=== PATIENT | male | born 1955 | race Caucasian/White ===

== ENCOUNTER 2016-12-11 09:35 | Inpatient (IN) | payer BC, OTHER ==
[2016-12-11 09:41] VITALS: BMI 16.0
--- NOTE | 2016-12-11 10:06 | PDOC ---
History of Present Illness <Franco Allan - Last Filed: 12/11/16 13:17> <Howard Dooley - Last Filed: 12/11/16 18:12> - General Chief Complaint: Chest Pain Stated Complaint: CHEST DISCOMFORT Time Seen by Provider: 12/11/16 10:04 - History of Present Illness Initial Comments: 12/11/16 13:17 Pt. was last seen by Dr. Jaramillo on October 23 2015. Generator changed in 2013 in the biventricular defibrillator by [employer]. During last visit, pt. was determined to have complete AV block, AFIB, orthostatic hypotension, but stopped following up. (Franco Allan) 12/11/16 10:41 The patient is a 61 year old male with a significant past medical history of myotonic dystrophy, atrial flutter s/p pacemaker, who was brought to the ER by his step-daughter since he claimed that he was having a heart attack when he woke this morning. He states that he had a now-resolved left-sided chest pain. His main complains at this point are constipation (last bm 4 days ago) and LLQ pain. Patient is minimally ambulatory at baseline at home using a cane but lives in a 2-story walk-up and avoids leaving his house due to his chronic illness. 12/11/16 12:49 (Howard Dooley) Past History <Franco Allan - Last Filed: 12/11/16 13:17> - Past Medical History Cardiac Disorders: Yes Other medical history: MILD TONIC DYSTROPHY - Surgical History Cardiac Surgery: Yes (PACEMAKER/DEFIB) - Immunization History Immunization Up to Date: Yes - Suicide/Smoking/Psychosocial Hx Smoking History: Never smoked Have you smoked in the past 12 months: No Hx Alcohol Use: No Drug/Substance Use Hx: No Substance Use Type: None Hx Substance Use Treatment: No <Howard Dooley - Last Filed: 12/11/16 18:12> - Past Medical History Allergies/Adverse Reactions: Allergies Allergy/AdvReac Type Severity Reaction Status Date / Time No Known Allergies Allergy Verified 12/11/16 09:41 Home Medications: Ambulatory Orders Unobtainable [Unobtainable] 12/11/16 Cardiac Specific PMH - Complaint Specific PMHX Pacemaker: Yes <Howard Dooley - Last Filed: 12/11/16 18:12> Review of Systems - Review of Systems Constitutional: Yes: Weakness HEENTM: No: Symptoms Reported Respiratory: No: Symptoms reported, Shortness of Breath, SOB with Exertion Cardiac (ROS): Yes: Chest Pain (resolved). No: Symptoms Reported ABD/GI: Yes: Constipated : No: Symptoms Reported Musculoskeletal: Yes: Muscle Weakness <Howard Dooley - Last Filed: 12/11/16 18:12> *Physical Exam - Physical Exam General Appearance: Yes: Cachetic. No: Apparent Distress HEENT: positive: EOMI, ROBERTA, Normal ENT Inspection Neck: positive: Supple. negative: Tender Respiratory/Chest: positive: Lungs Clear, Normal Breath Sounds. negative: Chest Tender, Respiratory Distress Cardiovascular: positive: Regular Rhythm, Regular Rate, S1, S2 Vascular Pulses: Dorsalis-Pedis (R): 2+, Doralis-Pedis (L): 2+ Gastrointestinal/Abdominal: positive: Decreased BS Integumentary: positive: Warm, Pale. negative: Bruising Neurologic: negative: Sensory Deficit <Howard Dooley - Last Filed: 12/11/16 18:12> - Vital Signs Last Vital Signs Temp Pulse Resp BP Pulse Ox 97.8 F 100 H 20 149/69 98 12/11/16 14:00 12/11/16 14:00 12/11/16 14:00 12/11/16 14:00 12/11/16 14:00 Heart Score/ECG Review <Franco Allan - Last Filed: 12/11/16 13:17> <Howard Dooley - Last Filed: 12/11/16 18:12> #1 12/11/16 11:19 Vent rate 96 bpm Atrial-sense ventricular-paced rhythm with occasional premature ventricular complexes Biventricular pacemaker detected Abnormal ECG (Franco Allan) ED Treatment Course - LABORATORY CBC & Chemistry Diagram: 12/11/16 10:30 12/11/16 10:30 <Franco Allan - Last Filed: 12/11/16 13:17> - LABORATORY CBC & Chemistry Diagram: 12/11/16 10:30 12/11/16 10:30 <Howard Dooley - Last Filed: 12/11/16 18:12> - ADDITIONAL ORDERS Additional order review: Laboratory Results 12/11/16 12/11/16 12/11/16 10:30 10:30 10:30 Sodium 143 Potassium 4.7 Chloride 108 H Carbon Dioxide 29 Anion Gap 6 L BUN 14 D Creatinine 0.6 L Creat Clearance w eGFR > 60 Random Glucose 91 Lactic Acid 1.8 Calcium 9.4 Total Bilirubin 0.5 AST 28 D ALT 20 D Alkaline Phosphatase 145 H Creatine Kinase 151 Creatine Kinase Index 1.3 CK-MB (CK-2) 2.106 Troponin I < 0.02 Total Protein 6.5 Albumin 3.7 TSH Y Free T4 Y Urine Color Yellow Urine Appearance Slcloudy Urine pH 5.0 D Urine Protein Negative Urine Glucose (UA) Negative Urine Ketones Trace H Urine Blood Negative Urine Nitrite Negative Urine Bilirubin Negative Urine Urobilinogen Negative 12/11/16 10:30 RBC 5.20 MCV 90.8 MCHC 32.8 RDW 13.9 MPV 9.4 Neutrophils % 77.5 Lymphocytes % 13.4 Monocytes % 8.1 Eosinophils % 0.3 D Basophils % 0.7 - RADIOLOGY Radiology Studies Ordered: Category Date Time Status ABDOMEN & PELVIS CT WITH CONTR [CT] Stat CT Scan 12/11/16 11:49 Completed CHEST - PA [RAD] Stat Radiology 12/11/16 10:08 Completed - Medications Given in the ED: ED Medications Discontinued Medications Generic Name Dose Route Start Last Admin Trade Name Freq PRN Reason Stop Dose Admin Aspirin 162 mg 12/11/16 13:44 12/11/16 14:50 Asa - PO 12/11/16 13:45 162 mg ONCE ONE Administration Aspirin 162 mg 12/11/16 16:36 12/11/16 17:39 Asa - PO 12/11/16 16:37 162 mg ONCE ONE Administration Polyethylene Glycol 17 gm 12/11/16 17:42 12/11/16 17:48 Miralax (For Daily Use) - PO 12/11/16 17:43 17 gm ONCE ONE Administration Sodium Chloride 1,000 ml 12/11/16 11:49 12/11/16 13:06 Normal Saline - IV 12/11/16 11:50 1,000 ml ONCE ONE Administration Medical Decision Making <Franco Allan - Last Filed: 12/11/16 13:17> <Howard Dooley - Last Filed: 12/11/16 18:12> - Medical Decision Making 12/11/16 12:49 The patient is a 61 year old male with a significant past medical history of myotonic dystrophy, atrial flutter s/p pacemaker, who was brought to the ER by his step-daughter since he claimed that he was having a heart attack when he woke this morning. Evaluation of low grade fever. Labs and lytes negative, UA negative 12/11/16 18:11 Admitted to [facility] for atypical chest painin the context of his muscular dystrophy. Needs physical therapy and placement in nursing care. (Howard Dooley) *DC/Admit/Observation/Transfer <Franco Allan - Last Filed: 12/11/16 13:17> - Discharge Dispostion Admit: Yes <Howard Dooley - Last Filed: 12/11/16 18:12> Diagnosis at time of Disposition: Atypical chest pain
[2016-12-11 10:55] LABS: URINE APPEARANCE SLCLOUDY; URINE BILIRUBIN NEGATIVE (NEGATIVE); URINE BLOOD NEGATIVE (NEGATIVE); URINE COLOR YELLOW; URINE GLUCOSE (UA) NEGATIVE (NEGATIVE); URINE KETONE TRACE (NEGATIVE); URINE NITRITE NEGATIVE (NEGATIVE); URINE PROTEIN NEGATIVE (NEGATIVE); URINE UROBILINOGEN NEGATIVE mg/dL (0.2-1.0)
[2016-12-11 11:07] LABS: BASOPHIL 0.7 % (0-2.0); EOSINOPHIL 0.3 % (0-4.5); MCH 29.8 pg (25.7-33.7); MCHC 32.8 g/dl (32.0-35.9); MEAN CELL VOLUME 90.8 fl (80-96); MEAN PLT VOLUME 9.4 fl (7.5-11.1); NEUTROPHILS 77.5 % (42.8-82.8); PLATELET COUNT 161 K/MM3 (134-434); RDW 13.9 % (11.9-15.9); WHITE BLOOD COUNT 7.9 K/mm3 (4.0-10.0)
[2016-12-11 11:21] LABS: ALBUMIN 3.7 g/dl (3.4-5.0); ANION GAP 6 (8-16); BILIRUBIN,TOTAL 0.5 mg/dL (0.2-1.0); CALCIUM 9.4 mg/dL (8.5-10.1); CO2 29 mmol/L (21-32); CREATININE 0.6 mg/dL (0.7-1.3); GLUCOSE,RANDOM 91 mg/dL (74-106); SGPT/ALT 20 U/L (12-78); TOT PROT 6.5 g/dl (6.4-8.2)
--- NOTE | 2016-12-11 11:22 | PDOC ---
Attending Attestation - Resident Resident Name: Howard Dooley - ED Attending Attestation I have performed the following: I have examined & evaluated the patient, The case was reviewed & discussed with the resident, I agree w/resident's findings & plan, Exceptions are as noted - HPI HPI: 12/11/16 11:21 . - Physicial Exam PE: 12/11/16 11:21 . <Alethea Alcala - Last Filed: 12/11/16 11:21> - HPI HPI: 12/11/16 11:41 The patient is a 61 year old male with a significant PMH of muscular dystrophy diagnosed 2 years ago who ? chest pain, constipation, and progressive weakness beginning approximately this morning. The patient lives at home with his step daughter and and reports walking to the bathroom and experiencing severe substernal chest pain. He reports feeling progressively weaker and being unable to reach the bathroom. Upon arrival, his chest pain has resolved but ? of worsening weakness. The patient states he has not eaten much over the past few days and lost a significant amount of weight. He also endorses mild lower abdominal pain and has not has a BM in 4 days. The patient denies SOB, cough, diaphoresis, or urinary complaints. Denies Hx of similar symptoms. Body Team Member: Dr. Harry Jaramillo - Physicial Exam PE: 12/11/16 11:42 GENERAL: Awake, alert, and fully oriented, in no acute distress HEAD: No signs of trauma EYES: PERRLA, EOMI, sclera anicteric, conjunctiva clear ENT: (+) Dry mucosa. Auricles normal inspection, hearing grossly normal, nares patent, oropharynx clear without exudates. NECK: Normal ROM, supple, no lymphadenopathy, JVD, or masses LUNGS: Breath sounds equal, clear to auscultation bilaterally. No wheezes, and no crackles HEART: Regular rate and rhythm, normal S1 and S2, no murmurs, rubs or gallops ABDOMEN: (+) Mild suprapubic LLQ tenderness. Soft, normoactive bowel sounds. No guarding, no rebound. No masses EXTREMITIES: Normal range of motion, no edema. No clubbing or cyanosis. No cords, erythema, or tenderness. DP/PT pulses 2+ and symmetric. NEUROLOGICAL: Cranial nerves II through XII grossly intact. Normal speech. SKIN: Warm, Dry, normal turgor, no rashes or lesions noted. - Medical Decision Making 12/11/16 11:42 Pt. is a 61 year old male with hx of muscular dystrophy c/o chest pain, progressive weakness, now with fevers and abdominal pain. Differential is UTI, pyelonephritis, diverticulitis, ACS, pneumonia. Pt. appears to have progressive wasting and weakness due to dystrophy. Will likely require admission for any underlying infection. May require physical therapy. <Franco Allan - Last Filed: 12/11/16 11:58>
[2016-12-11 11:23] LABS: ALK PHOS 145 U/L (45-117); TROPONIN I < 0.02 ng/ml (0.00-0.05)
[2016-12-11 11:30] LABS: CPK 151 IU/L (39-308); SGOT/AST 28 U/L (15-37)
[2016-12-11] MEDS ORDERED: SODIUM CHLORIDE 0.9% 1000 ML INFUS.BAG IV ONE (11:49)
--- NOTE | 2016-12-11 12:57 | EKG ---
Test Reason : Blood Pressure : / mmHG Vent. Rate : 096 BPM Atrial Rate : 096 BPM P-R Int : 108 ms QRS Dur : 148 ms QT Int : 398 ms P-R-T Axes : 091 -74 092 degrees QTc Int : 502 ms Atrial-sensed ventricular-paced rhythm WITH OCCASIONAL PREMATURE VENTRICULAR COMPLEXES FUSION BEATS Biventricular pacemaker detected ABNORMAL ECG WHEN COMPARED WITH ECG OF 22-AUG-2015 10:49, PREMATURE VENTRICULAR COMPLEXES ARE NOW PRESENT VENT. RATE HAS INCREASED BY 25 BPM BASELINE ARTIFACT Confirmed by NASREEN MARTINEZ MD ([id number]) on 12/11/2016 12:56:56 PM Referred By: Confirmed By:NASREEN MARTINEZ MD
[2016-12-11] MEDS ORDERED: ASPIRIN 81 MG CHEWABLE TABLETS PO ONE ×2 (13:44→16:36)
[2016-12-11] MEDS ORDERED: ASPIRIN 81 MG CHEWABLE TABLETS ONE ×2 (14:45→17:39)
--- NOTE | 2016-12-11 16:25 | HP ---
CHIEF COMPLAINT: chest pain, constipation, and progressive weakness, multiple falls at home PCP: Loan Clerk: Dr. Harry Jaramillo HISTORY OF PRESENT ILLNESS: Patient is a 61 year old male with a significant past medical history of myotonic dystrophy, atrial flutter s/p pacemaker. He is being monitored under observation today for chest pain, constipation and progressive weakness with multiple falls at home. Patient states that this morning he experienced severe 10/10 substernal chest pain accompanied by weakness when attempting to ambulate to the bathroom. Patient states his chest pain has since resolved. He further states that he notices that his lower extremities weakness has progressed in the last year and states he lost approximately 25 lbs in the past two months. He endorses mild LUQ abdominal pain and has not had a bowel movement for 4 days. He denies any shortness of breath, coughing, diaphoresis, urinary frequency, nausea or vomiting. He further states that he is on no medications presently and only takes Asprin 325mg daily and on no cardiac medications. This needs to be confirmed with his spanish linguist. Call placed with patients's home listed pharmacy: [facility] . Only filled prescriptions were back in August of this year and were: Z pack, Miralax, Tessalon pearls. ER course was notable for: (1) 100.F, negative chest xray, pulse 100, WBC 7.9, lactic acid 1.8 (2) Trop. 0.02 x 1 (3) Abd ct/pelvis: enlarged prostate, no evidence of acute diverticulitis (4) EKG 12/11/2016: atrial sensed ventricular paced rhythm with occasional premature ventral complex fusion beats. When compared with ECG of 08/22/2015 PVCs complexes are now present. Vent rate increased by 25bpm Recent Travel: none PAST MEDICAL HISTORY: myotonic dystrophy, atrial flutter s/p pacemaker PAST SURGICAL HISTORY: Social History: Smoking: denies Alcohol:denies Drugs: denies Family History: Allergies No Known Allergies Allergy (Verified 12/11/16 09:41) HOME MEDICATIONS: Home Medications Medication Instructions Recorded Aspirin [ASA -] 325 mg PO DAILY 08/22/15 Levofloxacin [Levaquin -] 500 mg PO DAILY #5 tablet 08/24/15 Metronidazole [Flagyl -] 500 mg PO Q8H #12 tablet 08/24/15 REVIEW OF SYSTEMS CONSTITUTIONAL: Absent: rhinorrhea, nasal congestion, throat pain, throat swelling, mouth swelling, ear pain, eye pain, visual changes CARDIOVASCULAR: Absent: syncope, palpitations, lightheadedness, peripheral edema RESPIRATORY: Absent: cough, shortness of breath, dyspnea with exertion, orthopnea, wheezing, stridor, hemoptysis GASTROINTESTINAL: Absent: abdominal pain, abdominal distension, melena, hematochezia GENITOURINARY: Absent: dysuria, frequency, urgency, hesitancy, hematuria, flank pain, genital pain MUSCULOSKELETAL: Absent: myalgia, arthralgia, joint swelling, back pain, neck pain SKIN: Absent: rash, itching, pallor HEMATOLOGIC/IMMUNOLOGIC: Absent: easy bleeding, easy bruising, lymphadenopathy, frequent infections ENDOCRINE: Absent: unexplained weight gain, heat intolerance, cold intolerance NEUROLOGIC: Absent: headache, focal weakness or paresthesias, dizziness, seizure, mental status changes, bladder or bowel incontinence PSYCHIATRIC: Absent: anxiety, suicidal or homicidal ideation, hallucinations. PHYSICAL EXAMINATION Vital Signs - 24 hr 12/11/16 12/11/16 12/11/16 09:36 10:30 14:00 Temperature 100.2 F H 97.8 F Pulse Rate 125 H Pulse Rate [ 100 H Right] Respiratory 20 20 Rate Blood Pressure 115/63 Blood Pressure 149/69 [Right Arm] O2 Sat by Pulse 100 98 Oximetry (%) GENERAL: Awake, alert, and fully oriented, in no acute distress, speech is garbled HEAD: Normal with no signs of trauma. +temporal wasting EYES: Pupils equal, round and reactive to light, extraocular movements intact, sclera anicteric, conjunctiva clear. No lid lag. EARS, NOSE, THROAT: Ears normal, nares patent, oropharynx clear without exudates. Moist mucous membranes. NECK: Normal range of motion, supple without lymphadenopathy, JVD, or masses. LUNGS: Breath sounds equal, clear to auscultation bilaterally. No wheezes HEART: Regular rate and rhythm ABDOMEN: Non distended, hard mass felt on LUQ, + bowel sounds, no tenderness on exam MUSCULOSKELETAL: Normal range of motion at all joints. No bony deformities or tenderness. No CVA tenderness. UPPER EXTREMITIES: No clubbing. No peripheral edema. LOWER EXTREMITIES: No calf tenderness. No peripheral edema, very thin lower extremities NEUROLOGICAL: Normal speech PSYCHIATRIC: Cooperative. Good eye contact. Appropriate mood and affect. SKIN: dry skin, poor skin turgor Laboratory Results - last 24 hr 12/11/16 12/11/16 12/11/16 10:30 10:30 10:30 WBC 7.9 RBC 5.20 Hgb 15.5 D Hct 47.2 MCV 90.8 MCH 29.8 MCHC 32.8 RDW 13.9 Plt Count 161 D MPV 9.4 Neutrophils % 77.5 Lymphocytes % 13.4 Monocytes % 8.1 Eosinophils % 0.3 D Basophils % 0.7 Sodium 143 Potassium 4.7 Chloride 108 H Carbon Dioxide 29 Anion Gap 6 L BUN 14 D Creatinine 0.6 L Creat Clearance w eGFR > 60 Random Glucose 91 Lactic Acid Calcium 9.4 Total Bilirubin 0.5 AST 28 D ALT 20 D Alkaline Phosphatase 145 H Creatine Kinase 151 Creatine Kinase Index 1.3 CK-MB (CK-2) 2.106 Troponin I < 0.02 Total Protein 6.5 Albumin 3.7 TSH Y Free T4 Y Urine Color Yellow Urine Appearance Slcloudy Urine pH 5.0 D Urine Protein Negative Urine Glucose (UA) Negative Urine Ketones Trace H Urine Blood Negative Urine Nitrite Negative Urine Bilirubin Negative Urine Urobilinogen Negative 12/11/16 10:30 WBC RBC Hgb Hct MCV MCH MCHC RDW Plt Count MPV Neutrophils % Lymphocytes % Monocytes % Eosinophils % Basophils % Sodium Potassium Chloride Carbon Dioxide Anion Gap BUN Creatinine Creat Clearance w eGFR Random Glucose Lactic Acid 1.8 Calcium Total Bilirubin AST ALT Alkaline Phosphatase Creatine Kinase Creatine Kinase Index CK-MB (CK-2) Troponin I Total Protein Albumin TSH Free T4 Urine Color Urine Appearance Urine pH Urine Protein Urine Glucose (UA) Urine Ketones Urine Blood Urine Nitrite Urine Bilirubin Urine Urobilinogen ASSESSMENT/PLAN: Patient is a 61 year old male with a significant past medical history of myotonic dystrophy, atrial flutter s/p pacemaker. He is being monitored under observation today for chest pain, constipation and progressive weakness with multiple falls at home. Patient states that this morning he experienced severe 10/10 substernal chest pain accompanied by weakness when attempting to ambulate to the bathroom. Patient states his chest pain has since resolved. He further states that he notices that his lower extremities weakness has progressed in the last year and states he lost approximately 25 lbs in the past two months and is often not hungry. He reports trouble with swallowing and coughs after meals and feels like food gets stuck. He endorses mild LUQ abdominal pain and has not had a bowel movement for 4 days. He denies any shortness of breath, coughing, diaphoresis, urinary frequency, nausea or vomiting. He further states that he is on no medications presently and only takes Asprin 325mg daily and on no cardiac medications. This needs to be confirmed with his spanish linguist. Call placed with patients's home listed pharmacy: [facility], [address] [place] [address] . Only filled prescriptions were back in August of this year and were: Z pack, Miralax, Tessalon pearls. Imaging: Chest Xray 12/11/2016: No acute pathology, clear lungs CT abd/pelvis 12/11/2016: enlarged prostated, multiple kidney stones, enlarged irregular prostate, no diverticulitis Cardiology: Chest Pain, acute Rule out ACS Trend troponins Monitor on telemonitoring Verify cardiac medications, has history of aflutter Will defer to cardiology for anticoaguation Patient reports 10 falls this year at home secondary to weakness and low blood pressure Monitor orthostatics q8 Continue ASA 324mg As per ED note patient last saw his spanish linguist on October 2015 and has not seen him since His generator changed in 2013 in the biventricular def. by [employer] TSH pending Cardiology consulted Muscular/Skeletal: Myotonic Dystrophy, chronic Will need physical therapy, reports multiple falls at home Fall risk precautions Progressive weight loss On admission of 08/2015, pt weight 60kg, now 49kg Will add megace, RD consult May need swallow eval, will order same Low Grade Fever, unknown origin In the ED he had a fever of 100.2, WBC stable, vitals stable Non toxic appearing Lactic acid within normal limits Blood cultures/urine cultures sent F.E.N. Fluids: IVF 50cc/hr Electrolytes: within normal limits, CMP in a.m. Nutrition: low sodium diet Prophylaxis: DVT: Heparin SC GI: Protonix Prophylaxis: Observation. full code. Visit type - Emergency Visit Emergency Visit: Yes ED Registration Date: 12/11/16 Care time: The patient presented to the Emergency Department on the above date and was hospitalized for further evaluation of their emergent condition. - New Patient This patient is new to me today: Yes Date on this admission: 12/11/16 - Critical Care Critical Care patient: No
[2016-12-11] MEDS ORDERED: POLYETHYLENE GLYCOL 3350 119 GM BTL PO ONE ×2 (17:42→18:02)
[2016-12-11] MEDS ORDERED: ACETAMINOPHEN 325 MG TABLET (FP) PO ONE (18:09)
[2016-12-11 18:12] LABS: URINE LEUK ESTERASE Negative (NEGATIVE)
[2016-12-11] MEDS ORDERED: SODIUM CHLORIDE 1,000 ML IV SCH (18:15)
[2016-12-11 19:03] LABS: INR 1.12 (0.82-1.09); PROTHROMBIN TIME (PATIENT) 12.6 SEC (9.98-11.88)
[2016-12-11 19:12] LABS: ALBUMIN 3.5 g/dl (3.4-5.0); ANION GAP 5 (8-16); BILIRUBIN,TOTAL 0.5 mg/dL (0.2-1.0); CALCIUM 8.8 mg/dL (8.5-10.1); CO2 31 mmol/L (21-32); CREATININE 0.8 mg/dL (0.7-1.3); GLUCOSE,RANDOM 92 mg/dL (74-106); MAGNESIUM 2.2 mg/dL (1.8-2.4); SGOT/AST 18 U/L (15-37); SGPT/ALT 17 U/L (12-78); TOT PROT 5.7 g/dl (6.4-8.2)
[2016-12-11] MEDS ORDERED: ACETAMINOPHEN 325 MG TABLET (FP) ONE (19:12)
[2016-12-11 19:15] LABS: ALK PHOS 128 U/L (45-117); TROPONIN I 0.03 ng/ml (0.00-0.05)
[2016-12-12 01:27] LABS: BASOPHIL 0.6 % (0-2.0); EOSINOPHIL 1.6 % (0-4.5); MCH 30.5 pg (25.7-33.7); MCHC 33.6 g/dl (32.0-35.9); MEAN CELL VOLUME 90.7 fl (80-96); MEAN PLT VOLUME 9.6 fl (7.5-11.1); NEUTROPHILS 54.4 % (42.8-82.8); PLATELET COUNT 146 K/MM3 (134-434); RDW 13.8 % (11.9-15.9); WHITE BLOOD COUNT 5.8 K/mm3 (4.0-10.0)
[2016-12-12] MEDS: DOCUSATE SODIUM 100 MG CAPSULE (FP) PO SCH ×4 (02:10→21:55)
[2016-12-12] MEDS: HEPARIN NA (PORCINE) 5,000 UNITS/ML 1ML VIAL SQ SCH ×3 (02:39→21:55)
[2016-12-12 08:40] LABS: BASOPHIL 0.5 % (0-2.0); EOSINOPHIL 1.1 % (0-4.5); MCH 30.2 pg (25.7-33.7); MCHC 33.3 g/dl (32.0-35.9); MEAN CELL VOLUME 90.7 fl (80-96); MEAN PLT VOLUME 9.9 fl (7.5-11.1); NEUTROPHILS 67.6 % (42.8-82.8); PLATELET COUNT 172 K/MM3 (134-434); RDW 14.1 % (11.9-15.9); WHITE BLOOD COUNT 6.8 K/mm3 (4.0-10.0)
[2016-12-12 09:00] LABS: ALBUMIN 3.2 g/dl (3.4-5.0); ANION GAP 8 (8-16); CALCIUM 8.7 mg/dL (8.5-10.1); CO2 26 mmol/L (21-32); CREATININE 0.4 mg/dL (0.7-1.3); GLUCOSE,RANDOM 133 mg/dL (74-106); SGOT/AST 22 U/L (15-37); SGPT/ALT 19 U/L (12-78); TOT PROT 5.3 g/dl (6.4-8.2)
[2016-12-12 09:03] LABS: ALK PHOS 116 U/L (45-117); BILIRUBIN,TOTAL 0.5 mg/dL (0.2-1.0); CHOLESTEROL 173 mg/dL (50-200)
[2016-12-12] MEDS ORDERED: ASPIRIN 325 MG TABLET PO SCH (10:00)
[2016-12-12] MEDS ORDERED: FLU VACCINE QUAD 60 MCG/0.5 ML (MDV 17-18) IM ONE (10:00)
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
[2016-12-12] MEDS: PANTOPRAZOLE 40 MG TABLET (FP) PO SCH (10:28)
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
--- NOTE | 2016-12-12 10:32 | CON.CARD ---
Consult Consult Specialty:: cardiology Reason for Consultation:: chest pain; hx BiV ICD - History of Present Illness Chief Complaint: Pt sitting up in chair; anxious; c/o treatment by family as main reason for his health problems. History of Present Illness: Pt. was last seen by Dr. Jaramillo (explosive ordnance specialist) on October 23 2015. Generator changed in 2013 in the biventricular defibrillator by [employer]. During last visit, pt. was determined to have complete AV block, AFIB, orthostatic hypotension, but stopped following up. 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 He states that he had a now-resolved left-sided chest pain. His main complains at this point are constipation (last bm 4 days ago) and LLQ pain. Patient is ambulatory at baseline at home using a cane (altered gait), but lives in a 2-story walk-up and avoids leaving his house due to his chronic illness. Pt says emotional issues at home have affected his physical health adversely. 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 Cardio/Vascular: Yes: CHF Psych: Yes: Anxiety Musculoskeletal: Yes: Other (myotoic dystrophy) - Past Surgical History Past Surgical History: Yes: None - Alcohol/Substance Use Hx Alcohol Use: No - Smoking History Smoking history: Never smoked Have you smoked in the past 12 months: No - Social History Usual Living Arrangement: With Spouse Home Medications - Allergies Allergies/Adverse Reactions: Allergies Allergy/AdvReac Type Severity Reaction Status Date / Time No Known Allergies Allergy Verified 12/11/16 09:41 - Home Medications Home Medications: Ambulatory Orders Unobtainable [Unobtainable] 12/11/16 Family Disease History - Family Disease History Family History: Denies Review of Systems - Review of Systems Constitutional: reports: Loss of Appetite, Unintentional Wgt. Loss, Weakness Eyes: reports: No Symptoms HENT: reports: No Symptoms Neck: reports: No Symptoms Cardiovascular: reports: Chest Pain Respiratory: reports: No Symptoms Gastrointestinal: reports: No Symptoms Genitourinary: reports: No Symptoms Musculoskeletal: reports: Decreased ROM, Muscle Weakness, Other Integumentary: reports: No Symptoms Neurological: reports: Unsteady Gait Psychiatric: reports: Anxiety, Paranoia - Risk Factors Known Risk Factors: Yes: Age, Physical Inactivity Vital Signs: Vital Signs Temperature 98.2 F 12/12/16 09:00 Pulse Rate 72 12/12/16 09:00 Respiratory Rate 18 12/12/16 09:00 Blood Pressure 126/69 12/12/16 09:00 O2 Sat by Pulse Oximetry (%) 97 12/12/16 02:12 Constitutional: Yes: Anxious, Thin Eyes: Yes: WNL HENT: Yes: WNL Neck: Yes: WNL Respiratory: Yes: WNL Gastrointestinal: Yes: WNL Renal/: No: Anuria Cardiovascular: Yes: Regular Rate and Rhythm JVD: No Carotid Bruit: No PMI: Non-Displaced Heart Sounds: Yes: S1, S2 Musculoskeletal: Yes: Muscle Weakness, Other (extremely thin; general atrophic musculature) Extremities: Yes: Cool Edema: No Peripheral Pulses WNL: Yes Integumentary: Yes: WNL Neurological: Yes: Unsteady Gait, Weakness Psychiatric: Yes: Agitated, Other - Other Data Labs, Other Data: CBC, BMP 12/12/16 08:10 12/12/16 08:10 INR, PTT INR 1.12 (0.82-1.09) 12/11/16 18:40 Troponin, BNP 12/11/16 12/11/16 12/12/16 18:40 18:40 01:18 Troponin I 0.03 D 0.03 0.03 Troponin, BNP 12/11/16 12/11/16 12/12/16 18:40 18:40 01:18 Troponin I 0.03 D 0.03 0.03 Imaging - Results EKG: Image Reviewed (atrial sensed, BiV paced) Problem List - Problems (1) Marital or partner relational problem Assessment/Plan: psychiatric consult noted. Code(s): Z63.0 - PROBLEMS IN RELATIONSHIP WITH SPOUSE OR PARTNER (3) Atypical chest pain Assessment/Plan: TNI 0.02-->0.03-->0.02 EKG: Atrial sensed, V paced rhythm Telemetry: no arrhythmias F/u ECHO for LVEF, wall motion, valve status. Pt gives hx of two stress MIBIs, the last ? 5 yrs ago; was told of "clean arteries". F/u cardiac [facility] from [facility] (Dr. Jaramillo). lipids; TSH. Coronary artery evaluation if not done recently. Code(s): R07.89 - OTHER CHEST PAIN
--- NOTE | 2016-12-12 10:55 | EKG ---
Test Reason : Blood Pressure : / mmHG Vent. Rate : 096 BPM Atrial Rate : 081 BPM P-R Int : 000 ms QRS Dur : 156 ms QT Int : 448 ms P-R-T Axes : 086 -71 091 degrees QTc Int : 565 ms SINUS RHYTHM WITH INTERMITENT ELECTRONIC ATRIAL PACEMAKER Ventricular-paced rhythm WITH OCCASIONAL PREMATURE VENTRICULAR COMPLEXES Biventricular pacemaker detected ABNORMAL ECG WHEN COMPARED WITH ECG OF 11-DEC-2016 09:53, RHYTHM ABOVE CLINICAL CORRELATION IS RECOMMENDED Confirmed by JUAN CAMILO, NASREEN ([id number]) on 12/12/2016 10:55:28 AM Referred By: Confirmed By:NASREEN MARTINEZ MD
[2016-12-12] MEDS: MEGESTROL ACETATE 400 MG/10 ML UNIT DOSE CUP PO SCH (12:44)
[2016-12-12] MEDS ORDERED: ACETAMINOPHEN 325 MG TABLET (FP) PO PRN (15:17)
[2016-12-12] MEDS: DEXTROSE 5%-0.45% SALINE 1,000 ML IV SCH (16:00)
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
[2016-12-12] MEDS: MIRTAZAPINE 15 MG TABLET (FP) PO SCH (21:55)
[2016-12-13] MEDS: DOCUSATE SODIUM 100 MG CAPSULE (FP) PO SCH ×3 (05:59→22:22)
[2016-12-13 06:58] LABS: BASOPHIL 0.6 % (0-2.0); EOSINOPHIL 1.7 % (0-4.5); MCH 30.2 pg (25.7-33.7); MEAN CELL VOLUME 88.9 fl (80-96); MEAN PLT VOLUME 9.4 fl (7.5-11.1); NEUTROPHILS 67.5 % (42.8-82.8); PLATELET COUNT 144 K/MM3 (134-434); RDW 14.2 % (11.9-15.9); WHITE BLOOD COUNT 6.4 K/mm3 (4.0-10.0)
[2016-12-13 07:23] LABS: ALBUMIN 3.1 g/dl (3.4-5.0); ALK PHOS 134 U/L (45-117); ANION GAP 10 (8-16); BILIRUBIN,TOTAL 0.5 mg/dL (0.2-1.0); CALCIUM 8.4 mg/dL (8.5-10.1); CO2 27 mmol/L (21-32); CREATININE 0.4 mg/dL (0.7-1.3); GLUCOSE,RANDOM 85 mg/dL (74-106); MAGNESIUM 2.3 mg/dL (1.8-2.4); PHOSPHOROUS 2.6 mg/dL (2.5-4.9); SGOT/AST 41 U/L (15-37); SGPT/ALT 38 U/L (12-78); TOT PROT 5.3 g/dl (6.4-8.2)
[2016-12-13] MEDS: PANTOPRAZOLE 40 MG TABLET (FP) PO SCH (09:33)
[2016-12-13] MEDS: ASPIRIN 81 MG CHEWABLE TABLETS PO SCH (09:34)
[2016-12-13] MEDS: MEGESTROL ACETATE 400 MG/10 ML UNIT DOSE CUP PO SCH (09:38)
[2016-12-13] MEDS: HEPARIN NA (PORCINE) 5,000 UNITS/ML 1ML VIAL SQ SCH ×2 (09:38→22:22)
--- NOTE | 2016-12-13 10:15 | EKG ---
Test Reason : Blood Pressure : / mmHG Vent. Rate : 073 BPM Atrial Rate : 073 BPM P-R Int : 126 ms QRS Dur : 152 ms QT Int : 456 ms P-R-T Axes : 092 -55 089 degrees QTc Int : 502 ms Atrial-sensed ventricular-paced rhythm Biventricular pacemaker detected ABNORMAL ECG WHEN COMPARED WITH ECG OF 11-DEC-2016 18:51, VENT. RATE HAS DECREASED BY 23 BPM Confirmed by MARIA ESTHER CAMILO, NBA ([id number]) on 12/13/2016 10:15:33 AM Referred By: Orlando CHOPRA Confirmed By:NBA MAYO MD
--- NOTE | 2016-12-13 10:17 | CON.GI ---
Consult Consult Specialty:: GI Referred by:: service Reason for Consultation:: dysphagia, wt loss - History of Present Illness History of Present Illness: Chart reviewed. ED, H&P, Cardiology, and psychiatry consults noted. Intermittent dysphagia to solids, progressive over the last few months. No history of food impaction, odynophagia, dyspepepsia, or GERD-like symptoms. Never had EGD. 25 lb unintentional weight loss over the last 5 months. Reports fair appetite. Deneis melena, hematochezia, hematemesis, changes in stool caliper. Reports constipation with 1 bm every 4 days. Deneis fever, chills, nausea, or vomiting. 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 Cardio/Vascular: Yes: CHF Gastrointestinal: No: Diverticulosis, GERD, GI Bleed Psych: Yes: Anxiety Musculoskeletal: Yes: Other (myotoic dystrophy) - Past Surgical History Past Surgical History: Yes: None Additional Surgical History: PPM - Alcohol/Substance Use Hx Alcohol Use: No - Smoking History Smoking history: Never smoked Have you smoked in the past 12 months: No - Social History Usual Living Arrangement: With Spouse Home Medications - Allergies Allergies/Adverse Reactions: Allergies Allergy/AdvReac Type Severity Reaction Status Date / Time No Known Allergies Allergy Verified 12/11/16 09:41 - Home Medications Home Medications: Ambulatory Orders Unobtainable [Unobtainable] 12/11/16 Family Disease History - Family Disease History Family History: Unremarkable Review of Systems - Review of Systems Constitutional: reports: Unintentional Wgt. Loss, Weakness. denies: Chills, Fever, Loss of Appetite, Night Sweats HENT: reports: Difficult Swallowing Neck: reports: No Symptoms Cardiovascular: reports: Chest Pain (atypica, per cardiology) Respiratory: reports: No Symptoms Gastrointestinal: reports: Constipation, Dysphagia. denies: Abdominal Pain, Bloating, Diarrhea, Indigestion, Melena, Nausea, Rectal Bleeding, Vomiting Musculoskeletal: reports: Muscle Weakness Psychiatric: reports: Anxiety Physical Exam-GI Vital Signs: Vital Signs Temperature 98.0 F 12/13/16 06:00 Pulse Rate 70 12/13/16 06:00 Respiratory Rate 20 12/13/16 06:00 Blood Pressure 100/63 12/13/16 06:00 O2 Sat by Pulse Oximetry (%) 99 12/12/16 20:39 Constitutional: Yes: Anxious, Cachectic Eyes: No: Conjunctiva Clear HENT: Yes: Other (temporal wasting). No: Atraumatic Neck: Yes: Supple, Trachea Midline. No: Lymphadenopathy Cardiovascular: Yes: Regular Rate and Rhythm Respiratory: Yes: Regular Gastrointestinal Inspection: No: Ascites, Distention ...Auscultate: Yes: Normoactive Bowel Sounds ...Palpate: Yes: Soft. No: Guarding, Mass, Pulsatile Mass, Tenderness Neurological: Yes: Alert, Oriented Labs: INR, PTT INR 1.12 (0.82-1.09) 12/11/16 18:40 CBCD WBC 6.4 K/mm3 (4.0-10.0) 12/13/16 06:25 RBC 4.24 M/mm3 (4.00-5.60) 12/13/16 06:25 Hgb 12.8 GM/dL (11.7-16.9) D 12/13/16 06:25 Hct 37.7 % (35.4-49) 12/13/16 06:25 MCV 88.9 fl (80-96) 12/13/16 06:25 MCHC 34.0 g/dl (32.0-35.9) 12/13/16 06:25 RDW 14.2 % (11.9-15.9) 12/13/16 06:25 Plt Count 144 K/MM3 (134-434) 12/13/16 06:25 MPV 9.4 fl (7.5-11.1) 12/13/16 06:25 CMP Sodium 145 mmol/L (136-145) 12/13/16 06:25 Potassium 4.3 mmol/L (3.5-5.1) 12/13/16 06:25 Chloride 108 mmol/L (98-107) H 12/13/16 06:25 Carbon Dioxide 27 mmol/L (21-32) 12/13/16 06:25 Anion Gap 10 (8-16) 12/13/16 06:25 BUN 13 mg/dL (7-18) D 12/13/16 06:25 Creatinine 0.4 mg/dL (0.7-1.3) L 12/13/16 06:25 Creat Clearance w eGFR > 60 (>60) 10/23/17 06:25 Calcium 8.4 mg/dL (8.5-10.1) L 12/13/16 06:25 Total Bilirubin 0.5 mg/dL (0.2-1.0) 12/13/16 06:25 AST 41 U/L (15-37) H D 12/13/16 06:25 ALT 38 U/L (12-78) D 12/13/16 06:25 Alkaline Phosphatase 134 U/L (45-117) H 12/13/16 06:25 Total Protein 5.3 g/dl (6.4-8.2) L 12/13/16 06:25 Albumin 3.1 g/dl (3.4-5.0) L 12/13/16 06:25 Imaging - Results Cat Scan: Pending, Other (per records, 2016 CT showed dilated esophagus, no follow up.) Problem List - Problems (1) Weight loss, abnormal Code(s): R63.4 - ABNORMAL WEIGHT LOSS (2) Dysphagia Code(s): R13.10 - DYSPHAGIA, UNSPECIFIED Assessment/Plan Agree with contrast CT chest Plan EGD and colonoscopy Soft diet Miralax PRN, or dilcolax qhs Discussed with the patient
--- NOTE | 2016-12-13 10:51 | CONSULT ---
Admitting History and Physical - Primary Care Physician PCP: Nguyen De Guzman - Admission History of Present Illness: Per EMR: HISTORY OF PRESENT ILLNESS: Patient is a 61 year old male with a significant past medical history of myotonic dystrophy, atrial flutter s/p pacemaker. He is being monitored under observation today for chest pain, constipation and progressive weakness with multiple falls at home. Patient states that this morning he experienced severe 10/10 substernal chest pain accompanied by weakness when attempting to ambulate to the bathroom. Patient states his chest pain has since resolved. He further states that he notices that his lower extremities weakness has progressed in the last year and states he lost approximately 25 lbs in the past two months. He endorses mild LUQ abdominal pain and has not had a bowel movement for 4 days. He denies any shortness of breath, coughing, diaphoresis, urinary frequency, nausea or vomiting. Thyroid nodules --previous admission August 2015, imaging showed: --08/22/15 CT chest: 1.9cm left thyroid lesion --08/24/15 US thyroid: left lower lobe 2.7 solid nodule; left upper lobe 1.2cm and 0.8cm solid nodules; 1cm nodule right upper lobe --patient was discharged on 08/24/15, advised needed outpatient biopsy, patient did not follow up --request for IR biopsy --TSH wnl; free T3, free T4 pending Esophageal dilitation --08/22/15 CT chest: moderate dilitation of esophagus, achelasia v. distal stricture; patient did not follow up with GI --difficulty swallowing, coughing with eating, food gets stuck CT chest 12/12/16 Moderate dilatation of cervical esophagus. No mass. r/o stricture EGD recommended/Complex left lobe thyroid mass. U/S rec GI evaluation appreciated- Plan: EGD/Colonoscopy. Soft diet rec. Pt only accepting ensure, refusing food, IV fluids, some medication. Pt with bilateral ptosis. 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 Cardiovascular: Yes: CHF Gastrointestinal: No: Diverticulosis, GERD, GI Bleed Psych: Yes: Anxiety Musculoskeletal: Yes: Other (myotoic dystrophy) - Past Surgical History Past Surgical History: Yes: None - Smoking History Smoking history: Never smoked Have you smoked in the past 12 months: No - Alcohol/Substance Use Hx Alcohol Use: No History - Admission Reason For Visit: MUSCULAR DYSTROPHY , ATYPICAL CHEST PAIN - Diagnostics X-ray: Report Reviewed CT Scan: Report Reviewed - General Mental Status: Alert and Oriented, Awake and Alert, Able to Follow Commands Attention: Intact Ability to Follow Directions: Good - Hearing Hearing: Normal Hearing Aide: No With Patient: No Speech Evaluation - Communication Primary Language: ALB[place] Oral Expression Ability: Yes: Mild Impairment, Moderate Impairment - Speech Production Able to Make Needs Known: Yes: Mildly Impaired, Moderately Impaired Intelligibility: Yes: Mildly Impaired, Moderately Impaired - Speech Characteristics Voice Loudness: Mildly Soft/Quiet Voice Pitch: Yes: Normal Voice Phonatory-based Quality: Yes: Normal Speech Pattern: Impaired Speech Clarity: < 75% Nasal Resonance: Normal Articulation: Yes: Imprecise Rate of Speech: Too Fast - Language/Auditory Comprehension Follows: Yes: 1 Stage Simple Commands - Swallow Evaluation/Bedside Assessment Current Nutritional Intake: Soft, Thin Liquids Oral Secretions: Yes: WFL Dentition: Yes: Adequate Facial Symmetry at Rest: Symmetrical Facial Symmetry on Retraction: Symmetrical Pucker Lips: Normal Smile: Normal Lingual Movement: Symmetric Lingual Speed of Movement: Normal Lingual Movement Strgth Against Opposition: Reduced Lingual Movement Characteristics: Normal Laryngeal Movement: Able to Palpate Timing of Swallow: WFL Coughing/Throat Clear: No Recommendations - Speech Evaluation, Impression/Plan Impression: Pt with bilateral ptosis. Very fast, imprecise speech, possibly baseline. Insight? CT chest 12/12/16 Moderate dilatation of cervical esophagus. No mass. r/o stricture EGD recommended/Complex left lobe thyroid mass. U/S rec. Refused PO trials for me except for water. Pt reports stasis of solids in right side of throat, which may be deferred symptoms from esophageal stasis with suspected stricture. He says he clears his throat and coughs to bring it back out. However, he denies dysphagia,food sticking in chest or vomiting. Pt insists on continuing "regular food". Suspect esophageal , and possibly pharyngeal dysphagia. - Dysphagia Impressions/Plan Swallowing Skills: Impaired *Silent aspiration: cannot be R/O at bedside Dysphagia Treatment Plan: Safe Rate, 1/2 tsp. at a time, OOB for meals, OOB for 1 h. after meals, Other (Alternate solids with liquids. Complete meal with liquids.) Recommendations: MBS w Esophagus (Pt is refusing. "maybe tomorrow") - Recommendations Diet Consistency: Mechanical Soft, Other Liquids: Thin Liquids Supplement: Ensure (encourage)
--- NOTE | 2016-12-13 13:03 | PN ---
Progress Note, Physician History of Present Illness: Pt. was last seen by Dr. Jaramillo (detective and intelligence analyst) on October 23 2015. Generator changed in 2013 in the biventricular defibrillator by [employer]. During last visit, pt. was determined to have complete AV block, AFIB, orthostatic hypotension, but stopped following up. 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 He states that he had a now-resolved left-sided chest pain. His main complains at this point are constipation (last bm 4 days ago) and LLQ pain. Patient is ambulatory at baseline at home using a cane (altered gait), but lives in a 2-story walk-up and avoids leaving his house due to his chronic illness. Pt says emotional issues at home have affected his physical health adversely. - Current Medication List Current Medications: Active Medications Acetaminophen (Tylenol -) 650 mg PO Q6H PRN PRN Reason: FEVER OR PAIN Aspirin (Asa -) 81 mg PO DAILY [facility] Last Admin: 12/13/16 09:34 Dose: 81 mg Docusate Sodium (Colace -) 100 mg PO TID [facility] Last Admin: 12/13/16 05:59 Dose: Not Given Heparin Sodium (Porcine) (Heparin -) 5,000 unit SQ BID [facility] Last Admin: 12/13/16 09:38 Dose: Not Given Dextrose/Sodium Chloride (D5-1/2ns -) 1,000 mls @ 75 mls/hr IV ASDIR [facility] Last Admin: 12/12/16 16:00 Dose: Not Given Megestrol Acetate (Megace Oral Suspension -) 400 mg PO DAILY [facility] Last Admin: 12/13/16 09:38 Dose: Not Given Mirtazapine (Remeron -) 15 mg PO HS [facility] Last Admin: 12/12/16 21:55 Dose: 15 mg Pantoprazole Sodium (Protonix -) 40 mg PO DAILY [facility] Last Admin: 12/13/16 09:33 Dose: 40 mg - Objective Vital Signs: Vital Signs Temperature 97.7 F 12/13/16 10:00 Pulse Rate 73 12/13/16 10:00 Respiratory Rate 18 12/13/16 10:00 Blood Pressure 104/62 12/13/16 10:00 O2 Sat by Pulse Oximetry (%) 100 12/13/16 11:17 Eyes: Yes: WNL, Conjunctiva Clear, EOM Intact HENT: Yes: WNL, Atraumatic, Normocephalic Neck: Yes: WNL, Supple, Trachea Midline Cardiovascular: Yes: WNL, Regular Rate and Rhythm Respiratory: Yes: WNL, Regular, CTA Bilaterally Gastrointestinal: Yes: WNL, Normal Bowel Sounds Genitourinary: Yes: WNL Musculoskeletal: Yes: WNL Extremities: Yes: WNL Edema: No Integumentary: Yes: WNL Neurological: Yes: WNL, Alert, Oriented ...Motor Strength: WNL Psychiatric: Yes: WNL Labs: INR, PTT INR 1.12 (0.82-1.09) 12/11/16 18:40 Problem List - Problems (1) Atypical chest pain Code(s): R07.89 - OTHER CHEST PAIN (2) Dysphagia Code(s): R13.10 - DYSPHAGIA, UNSPECIFIED (3) Marital or partner relational problem Code(s): Z63.0 - PROBLEMS IN RELATIONSHIP WITH SPOUSE OR PARTNER (5) Weight loss, abnormal Code(s): R63.4 - ABNORMAL WEIGHT LOSS (6) Bronchitis Code(s): J40 - BRONCHITIS, NOT SPECIFIED ACUTE OR CHRONIC (7) Hypoxia Code(s): R09.02 - HYPOXEMIA Assessment/Plan - Problems (1) Marital or partner relational problem Assessment/Plan: psychiatric consult noted. Code(s): Z63.0 - PROBLEMS IN RELATIONSHIP WITH SPOUSE OR PARTNER (3) Atypical chest pain Assessment/Plan: TNI 0.02-->0.03-->0.02 EKG: Atrial sensed, V paced rhythm Telemetry: no arrhythmias F/u ECHO for LVEF, wall motion, valve status. Pt gives hx of two stress MIBIs, the last ? 5 yrs ago; was told of "clean arteries". F/u cardiac records from [place] [facility] (Dr. Jaramillo). lipids; TSH. Coronary artery evaluation if not done recently. Code(s): R07.89 - OTHER CHEST PAIN
--- NOTE | 2016-12-13 13:13 | PN ---
Teaching Attending Note Name of Resident: Aakash Boles ATTENDING PHYSICIAN STATEMENT I saw and evaluated the patient. I reviewed the resident's note and discussed the case with the resident. I agree with the resident's findings and plan as documented. SUBJECTIVE:states that he feels less weak today. says he is "happy" about eating and weight gain over the past few days. denies dysphgia, food sticking, N /V/C/D, anorexia. states he lost 30 lbs this past year but can not contribute it to a certain reason OBJECTIVE: Last Vital Signs Temp Pulse Resp BP Pulse Ox 97.7 F 73 18 104/62 100 12/13/16 10:00 12/13/16 10:00 12/13/16 10:00 12/13/16 10:12/13/16 11:17 General NAD, cachectic (temporal wasting, loss of cheek fullnes, pronounced collar bones) HEENT +enlarged thyroid with mutliple nodules. moves with deglutition CV S1 s2 RRR no murmur/rub/gallop Lungs cTA B/L no wheezing/rales/rhonchi Abdomen soft NT/N, scaffoid abdomen Extremites no pedal edema, no rashes ASSESSMENT AND PLAN: 61yo M with PMH myotonic dystrophy and a flutter s/p PPM presented with CP, weakness and constipation 1. CP- no events on cardiac monitoring. cardiac enzymes neg x3. no repeated episodes of CP. echo pending. PPM interrogation today. will need ischemic eval as outpatinet 2. Severe protein deficiency malnutriton- evident by body habitus and weight loss. evaluated by swallow eval for soft diet. ensures. encourage po intake 3. Dysphgia- now reports no dysphagia but mentioned on previous notes. CT scan last year showed esophageal dilation with distal narrowing. repeat CT with contrast shows the same. no signs of mass, possible stricture. may be related to weight loss. will consult GI for further evaluation. would likely benefit from EGD 4. Thyroid nodules- seen on CT scan and in the past. was recommended to go for bx which pt did not. IR consulted her for Bx but indicated this outpatient workup 5. Constipation- add miralax. monitor for bm 6. myotonic dystrophy 7. DVT ppx- hep sq 8. PT assessment. pt is agreeable to YENI. will need to attempt to call PMD for collateral hx
[2016-12-13] MEDS: DEXTROSE 5%-0.45% SALINE 1,000 ML IV SCH (15:47)
[2016-12-13] MEDS: POLYETHYLENE GLYCOL 3350 119 GM BTL PO SCH (15:47)
--- NOTE | 2016-12-13 16:23 | PN ---
Progress Note, Physician Chief Complaint: Difficulty swallowing History of Present Illness: Patient seen and examined at bedside. Patient states that he doesn't feel food sticking in his throat when he swallows, but he occasionally has difficulty swallowing. He also reports a 30 pound weight loss over 2-3 months. Denies chest pain, SOB, n/v, abdominal pain, diarrhea. Had one bowel movement since yesterday. - Current Medication List Current Medications: Active Medications Acetaminophen (Tylenol -) 650 mg PO Q6H PRN PRN Reason: FEVER OR PAIN Aspirin (Asa -) 81 mg PO DAILY [facility] Last Admin: 12/13/16 09:34 Dose: 81 mg Docusate Sodium (Colace -) 100 mg PO TID [facility] Last Admin: 12/13/16 14:34 Dose: 100 mg Heparin Sodium (Porcine) (Heparin -) 5,000 unit SQ BID [facility] Last Admin: 12/13/16 09:38 Dose: Not Given Dextrose/Sodium Chloride (D5-1/2ns -) 1,000 mls @ 75 mls/hr IV ASDIR [facility] Last Admin: 12/13/16 15:47 Dose: Not Given Megestrol Acetate (Megace Oral Suspension -) 400 mg PO DAILY [facility] Last Admin: 12/13/16 09:38 Dose: Not Given Mirtazapine (Remeron -) 15 mg PO HS [facility] Last Admin: 12/12/16 21:55 Dose: 15 mg Pantoprazole Sodium (Protonix -) 40 mg PO DAILY [facility] Last Admin: 12/13/16 09:33 Dose: 40 mg Polyethylene Glycol (Miralax (For Daily Use) -) 17 gm PO DAILY [facility] Last Admin: 12/13/16 15:47 Dose: Not Given - Objective Vital Signs: Vital Signs Temperature 97.8 F 12/13/16 14:00 Pulse Rate 92 H 12/13/16 14:00 Respiratory Rate 20 12/13/16 14:00 Blood Pressure 115/74 12/13/16 14:00 O2 Sat by Pulse Oximetry (%) 100 12/13/16 11:17 Constitutional: Yes: No Distress, Calm, Cachectic Eyes: Yes: Conjunctiva Clear, EOM Intact HENT: Yes: Atraumatic, Normocephalic, Pharyngeal Erythema Neck: Yes: Supple, Trachea Midline Cardiovascular: Yes: Regular Rate and Rhythm Respiratory: Yes: Regular, CTA Bilaterally Gastrointestinal: Yes: Normal Bowel Sounds, Soft Edema: No Peripheral Pulses WNL: Yes Integumentary: Yes: WNL Neurological: Yes: Alert, Oriented ...Motor Strength: WNL Psychiatric: Yes: Alert, Oriented Labs: INR, PTT INR 1.12 (0.82-1.09) 12/11/16 18:40 - ....Imaging Cat Scan: Report Reviewed Problem List - Problems (1) Atypical chest pain Code(s): R07.89 - OTHER CHEST PAIN (2) Dysphagia Code(s): R13.10 - DYSPHAGIA, UNSPECIFIED (4) Weight loss, abnormal Code(s): R63.4 - ABNORMAL WEIGHT LOSS Impression/Plan Impression/Plan: Assessment/Plan: 61 year old male with a h myotonic dystrophy, 3rd degree heart block s/p biventricular pacemaker presented to the hospital for chest pain, weight loss, constipation, difficulty swallowing, and weakness. 1. Chest pain - clinically improved, patient is no longer having chest pains -echocardiogram today revealed no significant abnormalities, LV function normal -no acute cardiac events today -continue to monitor on telemetry -continue ASA 81mg 2. Severe Protein Deficiency -continue Ensure Enlive 3x day as per dietary -speech/swallow consult suggests esophageal and possibly pharyngeal dysphagia -diet should consist of mechanically soft, foods, thin liquids with ensure supplements 3. Dysphagia -although patient denies current dysphagia symptoms, speech/ swallow consult suggests there is a component of dysphagia. -CT done on previous admission showed esophageal dilatation and a repeat CT chest similarly shows the same dilatation -Dr. Rodriguez from GI evaluated the patient -scheduled EGD/colonoscopy 8:30am -weight loss/calorie malnutrition could be due to or exacerbated by his dysphagia -cont. megestrol 4. Thyroid nodules - were previously described on CT, but patient elected not to have biopsy done. -further workup should be outpatient 5. Constipation - patient had 1 bowel movement yesterday -start patient on miralax -cont docusate 6. Myotonic Dystrophy - -no acute intervention 7. Depression -continue mirtazepine 7. FEN -cont D5 - /2 NS -electrolytes are stable -nutrition as per dietary and speech/swallow: mechanically soft, foods, thin liquids with ensure supplements 8. Prophylaxis -heparin 5000 subQ -cont. pantoprazole 40mg 9. Dyspo: Visit type - Emergency Visit Emergency Visit: No - New Patient This patient is new to me today: Yes Date on this admission: 12/13/16 - Critical Care Critical Care patient: No
[2016-12-13] MEDS: MIRTAZAPINE 15 MG TABLET (FP) PO SCH (22:19)
[2016-12-14] MEDS: DOCUSATE SODIUM 100 MG CAPSULE (FP) PO SCH ×3 (05:58→21:59)
--- NOTE | 2016-12-14 06:33 | PN ---
Physical Exam: SUBJECTIVE: Patient seen and examined at bedside. Patient denies chest pain, SOB , n/v/d, abdominal pain. Patient refused his overnight medications, but agreed to heparin when he was taught why it was important. OBJECTIVE: Vital Signs Period Temp Pulse Resp BP Sys/Celestin Pulse Ox Last 24 Hr 97.7 F-98.1 F 70-92 18-20 90-115/55-74 100-100 Constitutional: Yes: No Distress, Calm, Cachectic Eyes: Yes: Conjunctiva Clear, EOM Intact HENT: Yes: Atraumatic, Normocephalic, Pharyngeal Erythema Neck: Yes: Supple, Trachea Midline Cardiovascular: Yes: Regular Rate and Rhythm Respiratory: Yes: Regular, CTA Bilaterally Gastrointestinal: Yes: Normal Bowel Sounds, Soft Edema: No Peripheral Pulses WNL: Yes Integumentary: Yes: WNL Neurological: Yes: Alert, Oriented ...Motor Strength: WNL Psychiatric: Yes: Alert, Oriented Labs: CBC, BMP 12/14/16 05:35 12/14/16 05:35 Active Medications Generic Name Dose Route Start Last Admin Trade Name Freq PRN Reason Stop Dose Admin Acetaminophen 650 mg 12/12/16 15:17 Tylenol - PO Q6H PRN FEVER OR PAIN Aspirin 81 mg 12/13/16 10:00 12/13/16 09:34 Asa - PO 81 mg DAILY [facility]LE[facility]DR[facility] Administration Docusate Sodium 100 mg 12/11/16 22:00 12/14/16 05:58 Colace - PO Not Given TID ALEJANDRINA Heparin Sodium (Porcine) 5,000 unit 12/11/16 22:00 12/13/16 22:22 Heparin - SQ Not Given BID [facility]LEJANDRINA Dextrose/Sodium Chloride 1,000 mls @ 75 mls/hr 12/12/16 15:30 12/13/16 15:47 D5-1/2ns - IV Not Given ASDIR ALEJANDRINA Megestrol Acetate 400 mg 12/12/16 10:00 12/13/16 09:38 Megace Oral Suspension - PO Not Given DAILY [facility]LE[facility] Mirtazapine 15 mg 12/12/16 22:00 12/13/16 22:19 Remeron - PO Not Given HS ALEJANDRINA Pantoprazole Sodium 40 mg 12/12/16 10:00 12/13/16 09:33 Protonix - PO 40 mg DAILY [facility]LE[facility]ANDR[facility] Administration Polyethylene Glycol 17 gm 12/13/16 13:15 10/23/17 15:47 Miralax (For Daily Use) - PO Not Given DAILY [facility]LE[facility]ANDR[facility] ASSESSMENT/PLAN: 61 year old male with a pmh myotonic dystrophy, 3rd degree heart block s/p biventricular pacemaker presented to the hospital for chest pain, weight loss, constipation, difficulty swallowing, and weakness. 1. Chest pain - clinically improved, patient is no longer having chest pains -trops 3x negative -echo revealed no significant abnormalities, LV function normal, mild MN -no acute cardiac events today -d/c telemetry -continue ASA 81mg 2. Severe Protein Deficiency -continue Ensure Enlive 3x day as per dietary -speech/swallow consult suggests esophageal and possibly pharyngeal dysphagia -diet should consist of mechanically soft, foods, thin liquids with ensure supplements 3. Dysphagia -although patient denies current dysphagia symptoms, speech/ swallow consult suggests there is a component of dysphagia. -CT done on previous admission showed esophageal dilatation and a repeat CT chest similarly shows the same dilatation -Dr. Rodriguez from GI evaluated the patient -scheduled EGD/colonoscopy 8:30am -prep for endoscopy tomorrow -weight loss/calorie malnutrition could be due to or exacerbated by his dysphagia -cont. megestrol 4. Thyroid nodules - were previously described on CT, but patient elected not to have biopsy done. -further workup should be outpatient 5. Constipation - patient had 1 bowel movement today -continue miralax -cont docusate 6. Myotonic Dystrophy - -no acute intervention 7. Depression -continue mirtazepine 7. FEN -cont D5 - 1/2 NS -electrolytes are stable -nutrition as per dietary and speech/swallow: mechanically soft, foods, thin liquids with ensure supplements 8. Prophylaxis -heparin 5000 subQ -cont. pantoprazole 40mg 9. Dispo: -can D/C telemetry -prep for EGD/colonoscopy tomorrow Problem List - Problems (1) Atypical chest pain Code(s): R07.89 - OTHER CHEST PAIN (2) Dysphagia Code(s): R13.10 - DYSPHAGIA, UNSPECIFIED (4) Weight loss, abnormal Code(s): R63.4 - ABNORMAL WEIGHT LOSS Visit type - Emergency Visit Emergency Visit: No - New Patient This patient is new to me today: No - Critical Care Critical Care patient: No
[2016-12-14 07:23] LABS: BASOPHIL 1.5 % (0-2.0); MCH 30.2 pg (25.7-33.7); MCHC 33.1 g/dl (32.0-35.9); MEAN CELL VOLUME 91.2 fl (80-96); MEAN PLT VOLUME 9.9 fl (7.5-11.1); NEUTROPHILS 62.5 % (42.8-82.8); PLATELET COUNT 148 K/MM3 (134-434); RDW 14.4 % (11.9-15.9); WHITE BLOOD COUNT 6.7 K/mm3 (4.0-10.0)
[2016-12-14 08:59] LABS: ANION GAP 7 (8-16); CALCIUM 8.8 mg/dL (8.5-10.1); CO2 31 mmol/L (21-32); CREATININE 0.5 mg/dL (0.7-1.3); GLUCOSE,RANDOM 82 mg/dL (74-106); SGOT/AST 63 U/L (15-37); SGPT/ALT 63 U/L (12-78)
[2016-12-14 09:01] LABS: ALK PHOS 158 U/L (45-117); BILIRUBIN,TOTAL 0.3 mg/dL (0.2-1.0); TOT PROT 5.3 g/dl (6.4-8.2)
--- NOTE | 2016-12-14 09:07 | PN ---
Progress Note, Physician History of Present Illness: No events. Comfortable. Wants regular diet and ECG leads off - Current Medication List Current Medications: Active Medications Acetaminophen (Tylenol -) 650 mg PO Q6H PRN PRN Reason: FEVER OR PAIN Aspirin (Asa -) 81 mg PO DAILY [facility] Last Admin: 12/13/16 09:34 Dose: 81 mg Docusate Sodium (Colace -) 100 mg PO TID [facility] Last Admin: 12/14/16 05:58 Dose: Not Given Heparin Sodium (Porcine) (Heparin -) 5,000 unit SQ BID [facility] Last Admin: 12/13/16 22:22 Dose: Not Given Dextrose/Sodium Chloride (D5-1/2ns -) 1,000 mls @ 75 mls/hr IV ASDIR [facility] Last Admin: 12/13/16 15:47 Dose: Not Given Megestrol Acetate (Megace Oral Suspension -) 400 mg PO DAILY [facility] Last Admin: 12/13/16 09:38 Dose: Not Given Mirtazapine (Remeron -) 15 mg PO HS [facility] Last Admin: 12/13/16 22:19 Dose: Not Given Pantoprazole Sodium (Protonix -) 40 mg PO DAILY [facility] Last Admin: 12/13/16 09:33 Dose: 40 mg Polyethylene Glycol (Miralax (For Daily Use) -) 17 gm PO DAILY [facility] Last Admin: 12/13/16 15:47 Dose: Not Given - Objective Vital Signs: Vital Signs Temperature 98 F 12/14/16 05:51 Pulse Rate 70 12/14/16 05:51 Respiratory Rate 20 12/14/16 05:51 Blood Pressure 90/55 12/14/16 05:51 O2 Sat by Pulse Oximetry (%) 100 12/13/16 22:00 Constitutional: Yes: No Distress, Calm Eyes: Yes: Conjunctiva Clear HENT: Yes: Atraumatic Neck: Yes: Supple Cardiovascular: Yes: Regular Rate and Rhythm Respiratory: Yes: Regular Gastrointestinal: Yes: Normal Bowel Sounds, Soft Neurological: Yes: Alert, Oriented Labs: CBC, BMP 12/14/16 05:35 INR, PTT INR 1.12 (0.82-1.09) 12/11/16 18:40 Problem List - Problems (1) Weight loss, abnormal Code(s): R63.4 - ABNORMAL WEIGHT LOSS (2) Dysphagia Code(s): R13.10 - DYSPHAGIA, UNSPECIFIED Assessment/Plan Agree with contrast CT chest Plan EGD and colonoscopy on Soft diet Miralax PRN, or dilcolax qhs Discussed with the patient
[2016-12-14] MEDS ORDERED: PT OWN MED DRAWER 7, Y5N ONE (09:13)
[2016-12-14] MEDS: MEGESTROL ACETATE 400 MG/10 ML UNIT DOSE CUP PO SCH (09:39)
[2016-12-14] MEDS: PANTOPRAZOLE 40 MG TABLET (FP) PO SCH (09:40)
[2016-12-14] MEDS: ASPIRIN 81 MG CHEWABLE TABLETS PO SCH (09:40)
[2016-12-14] MEDS: HEPARIN NA (PORCINE) 5,000 UNITS/ML 1ML VIAL SQ SCH ×2 (09:40→21:59)
[2016-12-14] MEDS: POLYETHYLENE GLYCOL 3350 119 GM BTL PO SCH (09:41)
--- NOTE | 2016-12-14 10:37 | PN ---
Progress Note, FIRST RESPONDER - Note Progress Note: Selected Entries 12/12/16 12/13/16 12/13/16 18:00 06:00 10:00 Supper 50% Temperature 98.0 F 97.7 F 12/13/16 12/13/16 12/13/16 14:00 18:00 20:05 Supper 50% Temperature 97.8 F 98.1 F 12/13/16 12/14/16 12/14/16 22:00 05:51 10:00 Supper Temperature 98 F 98 F 98.0 F Laboratory Tests 12/13/16 12/14/16 06:25 05:35 WBC 6.4 6.7 Pt on soft diet. No overt difficulty reported per staff. Pending contrast CT chest, EGD and colonoscopy on Alternate solids with liquids and complete meal with liquids. OOB for all meals , as tolerated.
--- NOTE | 2016-12-14 13:03 | PN ---
Teaching Attending Note Name of Resident: Aakash Boles ATTENDING PHYSICIAN STATEMENT I saw and evaluated the patient. I reviewed the resident's note and discussed the case with the resident. I agree with the resident's findings and plan as documented. SUBJECTIVE:asymptomatic. states appetite improved. denies CP, SOB, fever, chills , dysphagia or odynophagia. OBJECTIVE: Last Vital Signs Temp Pulse Resp BP Pulse Ox 98.0 F 82 20 99/44 111 H 12/14/16 10:00 12/14/16 10:12/14/16 10:00 12/14/16 10:12/14/16 10:00 General NAD, cachectic (temporal wasting, loss of cheek fullnes, pronounced collar bones) ASSESSMENT AND PLAN: 61yo M with PMH myotonic dystrophy and a flutter s/p PPM presented with CP, weakness and constipation 1. CP- no events on cardiac monitoring. cardiac enzymes neg x3. no repeated episodes of CP. echo WNL. will need ischemic eval as outpatient 2. Severe protein deficiency malnutrition- evident by body habitus and weight loss. evaluated by swallow eval for soft diet. ensures. encourage po intake 3. Dysphgia- now reports no dysphagia but mentioned on previous notes. CT scan last year showed esophageal dilation with distal narrowing. repeat CT with contrast shows the same. no signs of mass, possible stricture. may be related to weight loss. Plan for EGD/colonoscopy on to further evaluate. 4. Thyroid nodules- seen on CT scan and in the past. will need outpatinet follow up. 5. Constipation- multiple BM yesterday. monitor for daily BM 6. myotonic dystrophy 7. DVT ppx- hep sq 8. would benefit from Y[facility]I placement. will inform CM to initiate process at this time 9. d/c tele monitoring
--- NOTE | 2016-12-14 14:44 | PN ---
Progress Note, Physician Chief Complaint: Pt A&Ox3; anxious; no chest pain or dyspnea.Wants to walk, but says he falls sometimes; "I just get up and keep walking". History of Present Illness: Pt. was last seen by Dr. Jaramillo (automotive sales associate) on October 23 2015. Generator changed in 2013 in the biventricular defibrillator by [employer]. During last visit, pt. was determined to have complete AV block, AFIB, orthostatic hypotension, but stopped following up. 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 He states that he had a now-resolved left-sided chest pain. His main complains at this point are constipation (last bm 4 days ago) and LLQ pain. Patient is ambulatory at baseline at home using a cane (altered gait), but lives in a 2-story walk-up and avoids leaving his house due to his chronic illness. Pt says emotional issues at home have affected his physical health adversely. - Current Medication List Current Medications: Active Medications Acetaminophen (Tylenol -) 650 mg PO Q6H PRN PRN Reason: FEVER OR PAIN Aspirin (Asa -) 81 mg PO DAILY [facility] Last Admin: 12/14/16 09:40 Dose: 81 mg Docusate Sodium (Colace -) 100 mg PO TID [facility] Last Admin: 12/14/16 13:35 Dose: Not Given Heparin Sodium (Porcine) (Heparin -) 5,000 unit SQ BID [facility] Last Admin: 12/14/16 09:40 Dose: 5,000 unit Dextrose/Sodium Chloride (D5-1/2ns -) 1,000 mls @ 75 mls/hr IV ASDIR [facility] Last Admin: 12/13/16 15:47 Dose: Not Given Megestrol Acetate (Megace Oral Suspension -) 400 mg PO DAILY [facility] Last Admin: 12/14/16 09:39 Dose: 400 mg Mirtazapine (Remeron -) 15 mg PO HS [facility] Last Admin: 12/13/16 22:19 Dose: Not Given Pantoprazole Sodium (Protonix -) 40 mg PO DAILY [facility] Last Admin: 12/14/16 09:40 Dose: 40 mg Polyethylene Glycol (Miralax (For Daily Use) -) 17 gm PO DAILY [facility] Last Admin: 12/14/16 09:41 Dose: 17 grams - Objective Vital Signs: Vital Signs Temperature 98.0 F 12/14/16 10:00 Pulse Rate 82 12/14/16 10:00 Respiratory Rate 20 12/14/16 10:00 Blood Pressure 99/44 12/14/16 10:00 O2 Sat by Pulse Oximetry (%) 111 H 12/14/16 10:00 Constitutional: Yes: Anxious, Cachectic Eyes: Yes: WNL HENT: Yes: WNL Neck: Yes: WNL Cardiovascular: Yes: Regular Rate and Rhythm Respiratory: Yes: Regular Gastrointestinal: Yes: Soft ...Rectal Exam: Yes: Deferred Genitourinary: No: Anuria Musculoskeletal: Yes: Muscle Weakness, Other (geeralzied muscle atrophy) Extremities: Yes: Cool Edema: No Peripheral Pulses WNL: Yes Integumentary: Yes: WNL Neurological: Yes: Alert, Oriented, Unsteady Gait, Weakness Psychiatric: Yes: Other (anxiety; ?paranoia) Labs: CBC, BMP 12/14/16 05:35 12/14/16 05:35 INR, PTT INR 1.12 (0.82-1.09) 12/11/16 18:40 Abnormal Lab Results 12/14/16 12/14/16 05:35 05:35 Monocytes % 11.5 H Anion Gap 7 L BUN 25 H D Creatinine 0.5 L D AST 63 H D Alkaline Phosphatase 158 H Total Protein 5.3 L Albumin 3.0 L - ....Imaging Ultrasound: Image Reviewed (ECHO: normal LVEF; mild SC) Problem List - Problems (1) Marital or partner relational problem Assessment/Plan: psychiatric consult noted. Code(s): Z63.0 - PROBLEMS IN RELATIONSHIP WITH SPOUSE OR PARTNER (3) Atypical chest pain Assessment/Plan: TNI 0.02-->0.03-->0.02 EKG: Atrial sensed, V paced rhythm Telemetry: no arrhythmias F/u ECHO: normal LVEF; normal chamber sizes; mild SC. Pt gives hx of two stress MIBIs, the last ? 5 yrs ago; was told of "clean arteries". F/u cardiac records from [facility] (Dr. Jaramillo). TFTs WNL. Mildly elevated LDL cholesterol. Caution with use of statin, as AST is mildly elevated; f/u levels. Coronary artery evaluation if not done recently. Code(s): R07.89 - OTHER CHEST PAIN
[2016-12-14] MEDS: MIRTAZAPINE 15 MG TABLET (FP) PO SCH (22:00)
[2016-12-15 08:24] LABS: EOSINOPHIL 4.2 % (0-4.5); MCH 30.3 pg (25.7-33.7); MCHC 33.6 g/dl (32.0-35.9); MEAN CELL VOLUME 90.2 fl (80-96); MEAN PLT VOLUME 9.5 fl (7.5-11.1); NEUTROPHILS 53.3 % (42.8-82.8); PLATELET COUNT 164 K/MM3 (134-434); RDW 14.6 % (11.9-15.9); WHITE BLOOD COUNT 5.1 K/mm3 (4.0-10.0)
[2016-12-15 08:53] LABS: ALBUMIN 3.5 g/dl (3.4-5.0); ANION GAP 6 (8-16); CALCIUM 9.1 mg/dL (8.5-10.1); CO2 32 mmol/L (21-32); CREATININE 0.6 mg/dL (0.7-1.3); GLUCOSE,RANDOM 80 mg/dL (74-106); SGOT/AST 162 U/L (15-37); SGPT/ALT 165 U/L (12-78)
[2016-12-15 08:55] LABS: ALK PHOS 290 U/L (45-117); BILIRUBIN,TOTAL 0.7 mg/dL (0.2-1.0); TOT PROT 6.2 g/dl (6.4-8.2)
--- NOTE | 2016-12-15 09:41 | PN ---
Progress Note, Physician History of Present Illness: No events. Comfortable. Wants regular diet. EGD/colonoscopy, diet and prep discussed - Current Medication List Current Medications: Active Medications Aspirin (Asa -) 81 mg PO DAILY [facility] Last Admin: 12/14/16 09:40 Dose: 81 mg Docusate Sodium (Colace -) 100 mg PO TID [facility] Last Admin: 12/14/16 21:59 Dose: Not Given Heparin Sodium (Porcine) (Heparin -) 5,000 unit SQ BID [facility] Last Admin: 12/14/16 21:59 Dose: Not Given Dextrose/Sodium Chloride (D5-1/2ns -) 1,000 mls @ 75 mls/hr IV ASDIR [facility] Last Admin: 12/13/16 15:47 Dose: Not Given Megestrol Acetate (Megace Oral Suspension -) 400 mg PO DAILY [facility] Last Admin: 12/14/16 09:39 Dose: 400 mg Mirtazapine (Remeron -) 15 mg PO HS [facility] Last Admin: 12/14/16 22:00 Dose: Not Given Pantoprazole Sodium (Protonix -) 40 mg PO DAILY [facility] Last Admin: 12/14/16 09:40 Dose: 40 mg Polyethylene Glycol (Miralax (For Daily Use) -) 17 gm PO DAILY [facility] Last Admin: 12/14/16 09:41 Dose: 17 grams - Objective Vital Signs: Vital Signs Temperature 97 F L 12/15/16 05:00 Pulse Rate 76 12/15/16 05:00 Respiratory Rate 20 12/15/16 05:00 Blood Pressure 96/60 12/15/16 05:00 O2 Sat by Pulse Oximetry (%) 99 12/14/16 21:00 Constitutional: Yes: No Distress, Calm Eyes: Yes: Conjunctiva Clear HENT: Yes: Atraumatic Neck: Yes: Supple Cardiovascular: Yes: Regular Rate and Rhythm Respiratory: Yes: Regular Gastrointestinal: Yes: Normal Bowel Sounds, Soft. No: Distention, Tenderness Neurological: Yes: Alert, Oriented Labs: CBC, BMP 12/15/16 08:05 12/15/16 08:05 INR, PTT INR 1.12 (0.82-1.09) 12/11/16 18:40 CBCD WBC 5.1 K/mm3 (4.0-10.0) 12/15/16 08:05 RBC 4.75 M/mm3 (4.00-5.60) 12/15/16 08:05 Hgb 14.4 GM/dL (11.7-16.9) D 12/15/16 08:05 Hct 42.8 % (35.4-49) 12/15/16 08:05 MCV 90.2 fl (80-96) 12/15/16 08:05 MCHC 33.6 g/dl (32.0-35.9) 12/15/16 08:05 RDW 14.6 % (11.9-15.9) 12/15/16 08:05 Plt Count 164 K/MM3 (134-434) 12/15/16 08:05 MPV 9.5 fl (7.5-11.1) 12/15/16 08:05 CMP Sodium 141 mmol/L (136-145) 12/15/16 08:05 Potassium 4.5 mmol/L (3.5-5.1) 12/15/16 08:05 Chloride 103 mmol/L (98-107) 12/15/16 08:05 Carbon Dioxide 32 mmol/L (21-32) 12/15/16 08:05 Anion Gap 6 (8-16) L 12/15/16 08:05 BUN 20 mg/dL (7-18) H 12/15/16 08:05 Creatinine 0.6 mg/dL (0.7-1.3) L 12/15/16 08:05 Creat Clearance w eGFR > 60 (>60) 12/15/16 08:05 Calcium 9.1 mg/dL (8.5-10.1) 12/15/16 08:05 Total Bilirubin 0.7 mg/dL (0.2-1.0) D 12/15/16 08:05 AST 162 U/L (15-37) H D 12/15/16 08:05 ALT 165 U/L (12-78) H D 12/15/16 08:05 Alkaline Phosphatase 290 U/L (45-117) H D 12/15/16 08:05 Total Protein 6.2 g/dl (6.4-8.2) L 12/15/16 08:05 Albumin 3.5 g/dl (3.4-5.0) 12/15/16 08:05 - ....Imaging Cat Scan: Report Reviewed Ultrasound: Pending Problem List - Problems (1) Weight loss, abnormal Code(s): R63.4 - ABNORMAL WEIGHT LOSS (2) Dysphagia Code(s): R13.10 - DYSPHAGIA, UNSPECIFIED (3) Liver enzyme elevation Code(s): R74.8 - ABNORMAL LEVELS OF OTHER SERUM ENZYMES Assessment/Plan Trending up liver chemistry (>3x) and ALP, asymptomatic. US liver ordered. Hepatic panel qd. Remeron and megace appear to be new medications started on this admission. Consider stopping. Tylenol stopped Plan EGD and colonoscopy on clear liquid diet today, NPO after midnight Discussed with the patient
[2016-12-15] MEDS: HEPARIN NA (PORCINE) 5,000 UNITS/ML 1ML VIAL SQ SCH ×2 (10:05→22:18)
[2016-12-15] MEDS: ASPIRIN 81 MG CHEWABLE TABLETS PO SCH (10:06)
[2016-12-15] MEDS: DOCUSATE SODIUM 100 MG CAPSULE (FP) PO SCH ×3 (10:06→22:18)
[2016-12-15] MEDS: POLYETHYLENE GLYCOL 3350 119 GM BTL PO SCH (10:08)
[2016-12-15] MEDS: MEGESTROL ACETATE 400 MG/10 ML UNIT DOSE CUP PO SCH (10:08)
[2016-12-15] MEDS: PANTOPRAZOLE 40 MG TABLET (FP) PO SCH (10:11)
--- NOTE | 2016-12-15 12:29 | PN ---
Progress Note, Physician History of Present Illness: Pt. was last seen by Dr. Jaramillo (hat liner) on October 23 2015. Generator changed in 2013 in the biventricular defibrillator by [employer]. During last visit, pt. was determined to have complete AV block, AFIB, orthostatic hypotension, but stopped following up. 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 He states that he had a now-resolved left-sided chest pain. His main complains at this point are constipation (last bm 4 days ago) and LLQ pain. Patient is ambulatory at baseline at home using a cane (altered gait), but lives in a 2-story walk-up and avoids leaving his house due to his chronic illness. Pt says emotional issues at home have affected his physical health adversely. - Current Medication List Current Medications: Active Medications Aspirin (Asa -) 81 mg PO DAILY [facility] Last Admin: 12/15/16 10:06 Dose: 81 mg Docusate Sodium (Colace -) 100 mg PO TID [facility] Last Admin: 12/15/16 10:06 Dose: Not Given Heparin Sodium (Porcine) (Heparin -) 5,000 unit SQ BID [facility] Last Admin: 12/15/16 10:05 Dose: 5,000 unit Dextrose/Sodium Chloride (D5-Ns -) 1,000 mls @ 100 mls/hr IV ASDIR [facility] Megestrol Acetate (Megace Oral Suspension -) 400 mg PO DAILY [facility] Last Admin: 12/15/16 10:08 Dose: Not Given Mirtazapine (Remeron -) 15 mg PO HS [facility] Last Admin: 12/14/16 22:00 Dose: Not Given Pantoprazole Sodium (Protonix -) 40 mg PO DAILY [facility] Last Admin: 12/15/16 10:11 Dose: 40 mg Polyethylene Glycol (Miralax (For Daily Use) -) 17 gm PO DAILY [facility] Last Admin: 12/15/16 10:08 Dose: 17 grams - Objective Vital Signs: Vital Signs Temperature 97 F L 12/15/16 05:00 Pulse Rate 76 12/15/16 05:00 Respiratory Rate 20 12/15/16 05:00 Blood Pressure 96/60 12/15/16 05:00 O2 Sat by Pulse Oximetry (%) 98 12/15/16 09:00 Eyes: Yes: WNL, Conjunctiva Clear, EOM Intact HENT: Yes: WNL, Atraumatic, Normocephalic Neck: Yes: WNL, Supple, Trachea Midline Cardiovascular: Yes: WNL, Regular Rate and Rhythm Respiratory: Yes: WNL, Regular, CTA Bilaterally Gastrointestinal: Yes: WNL, Normal Bowel Sounds Genitourinary: Yes: WNL Musculoskeletal: Yes: WNL Extremities: Yes: WNL Edema: No Integumentary: Yes: WNL Neurological: Yes: WNL, Alert, Oriented ...Motor Strength: WNL Psychiatric: Yes: WNL Labs: CBC, BMP 12/15/16 08:05 12/15/16 08:05 INR, PTT INR 1.12 (0.82-1.09) 12/11/16 18:40 Problem List - Problems (1) Atypical chest pain Code(s): R07.89 - OTHER CHEST PAIN (2) Dysphagia Code(s): R13.10 - DYSPHAGIA, UNSPECIFIED (3) Marital or partner relational problem Code(s): Z63.0 - PROBLEMS IN RELATIONSHIP WITH SPOUSE OR PARTNER (5) Weight loss, abnormal Code(s): R63.4 - ABNORMAL WEIGHT LOSS (6) Bronchitis Code(s): J40 - BRONCHITIS, NOT SPECIFIED ACUTE OR CHRONIC (7) Hypoxia Code(s): R09.02 - HYPOXEMIA Assessment/Plan - Problems (1) Marital or partner relational problem Assessment/Plan: psychiatric consult noted. Code(s): Z63.0 - PROBLEMS IN RELATIONSHIP WITH SPOUSE OR PARTNER (3) Atypical chest pain Assessment/Plan: TNI 0.02-->0.03-->0.02 EKG: Atrial sensed, V paced rhythm Telemetry: no arrhythmias F/u ECHO: normal LVEF; normal chamber sizes; mild MD. Pt gives hx of two stress MIBIs, the last ? 5 yrs ago; was told of "clean arteries". F/u cardiac records from [facility] (Dr. Jaramillo). TFTs WNL. Mildly elevated LDL cholesterol. Caution with use of statin, as AST is mildly elevated; f/u levels. Coronary artery evaluation if not done recently. Code(s): R07.89 - OTHER CHEST PAIN
[2016-12-15] MEDS: DEXTROSE 5%-NORMAL SALINE 1,000 ML IV SCH (12:47)
--- NOTE | 2016-12-15 13:36 | PN ---
Teaching Attending Note Name of Resident: Aakash Boles ATTENDING PHYSICIAN STATEMENT I saw and evaluated the patient. I reviewed the resident's note and discussed the case with the resident. I agree with the resident's findings and plan as documented. SUBJECTIVE: patient seen and examined, denies any nausea, vomiting, abdominal pain, dysphagia, dyspnea, chest pain or new symptoms. Tolerating po. OBJECTIVE: Vital Signs Period Temp Pulse Resp BP Sys/Celestin Pulse Ox Last 24 Hr 97 F-98.8 F 70-76 18-20 96-106/60-61 98-99 HEENT - EOMI, NIMCO, mildly dry skin and mucous membrane CVS - S1S2 regular Chest - CTAB, no rales or wheezing abdomen - soft, non tender, non distended, neg Kincaid's sign, positive bowel sounds Extremities - no edema Laboratory Results - last 24 hr 12/15/16 12/15/16 08:05 08:05 WBC 5.1 RBC 4.75 Hgb 14.4 D Hct 42.8 MCV 90.2 MCH 30.3 MCHC 33.6 RDW 14.6 Plt Count 164 MPV 9.5 Neutrophils % 53.3 Lymphocytes % 30.4 D Monocytes % 11.1 H Eosinophils % 4.2 D Basophils % 1.0 Sodium 141 Potassium 4.5 Chloride 103 Carbon Dioxide 32 Anion Gap 6 L BUN 20 H Creatinine 0.6 L Creat Clearance w eGFR > 60 Random Glucose 80 Calcium 9.1 Total Bilirubin 0.7 D AST 162 H D ALT 165 H D Alkaline Phosphatase 290 H D Total Protein 6.[address] chest and A/P reviewed. 2D echo reviewed Active Medications Aspirin (Asa -) 81 mg PO DAILY [facility] Last Admin: 12/15/16 10:06 Dose: 81 mg Docusate Sodium (Colace -) 100 mg PO TID [facility] Last Admin: 12/15/16 10:06 Dose: Not Given Heparin Sodium (Porcine) (Heparin -) 5,000 unit SQ BID [facility] Last Admin: 12/15/16 10:05 Dose: 5,000 unit Dextrose/Sodium Chloride (D5-Ns -) 1,000 mls @ 100 mls/hr IV ASDIR [facility] Last Admin: 12/15/16 12:47 Dose: 100 mls/hr Mirtazapine (Remeron -) 15 mg PO HS [facility] Last Admin: 12/14/16 22:00 Dose: Not Given Pantoprazole Sodium (Protonix -) 40 mg PO DAILY [facility] Last Admin: 12/15/16 10:11 Dose: 40 mg Polyethylene Glycol (Miralax (For Daily Use) -) 17 gm PO DAILY [facility] Last Admin: 12/15/16 10:08 Dose: 17 grams ASSESSMENT AND PLAN: 61 yom with myotonic dystrophy and atrial flutter s/p PPM admitted with chest pain, weakness, constipation, found with dysphagia, cervical esophageal dilatation, severe protein calorie malnutrition, and now with worsening LFTs. -Chest pain resolved, ACS ruled out, cardiology input appreciated, 2D echo reviewed. outpatient follow up -Dyphagia Seen speech swallow. CT chest with cervical esophageal dilatation, concerning for stricture, for EGD tomorrow, NPO post midnight. GI input appreciated. -Severe protein calorie malnutrition nutrition consult, GI input as above -Abnormal LFTs Worsening today, no abdominal symptoms. GI input noted. Follow up abdominal ultrasound, daily LFTs, check INR, check hep panel. Will d/c megace/remeron for now that was started this admission. statin/tylenol held. -neglect concerns, social work input DVTPPx with heparin Fall precautions, encourage ambulation. dispo - pending GI workup and clinical improvement.
--- NOTE | 2016-12-15 17:08 | PN ---
Physical Exam: SUBJECTIVE: Patient seen and examined at bedside. No acute complaints. Patient is slightly agitated that he is unable to walk around due to the bed alarm whenever he stands up. OBJECTIVE: Vital Signs Period Temp Pulse Resp BP Sys/Celestin Pulse Ox Last 24 Hr 97 F-97.7 F 70-91 20-20 96-135/60-76 98-99 Constitutional: Yes: No Distress, Calm, Cachectic Eyes: Yes: Conjunctiva Clear, EOM Intact HENT: Yes: Atraumatic, Normocephalic, Pharyngeal Erythema Neck: Yes: Supple, Trachea Midline Cardiovascular: Yes: Regular Rate and Rhythm Respiratory: Yes: Regular, CTA Bilaterally Gastrointestinal: Yes: Normal Bowel Sounds, Soft Edema: No Peripheral Pulses WNL: Yes Integumentary: Yes: WNL Neurological: Yes: Alert, Oriented ...Motor Strength: WNL Psychiatric: Yes: Alert, Oriented Laboratory Results - last 24 hr 12/15/16 12/15/16 08:05 08:05 WBC 5.1 RBC 4.75 Hgb 14.4 D Hct 42.8 MCV 90.2 MCH 30.3 MCHC 33.6 RDW 14.6 Plt Count 164 MPV 9.5 Neutrophils % 53.3 Lymphocytes % 30.4 D Monocytes % 11.1 H Eosinophils % 4.2 D Basophils % 1.0 Sodium 141 Potassium 4.5 Chloride 103 Carbon Dioxide 32 Anion Gap 6 L BUN 20 H Creatinine 0.6 L Creat Clearance w eGFR > 60 Random Glucose 80 Calcium 9.1 Total Bilirubin 0.7 D AST 162 H D ALT 165 H D Alkaline Phosphatase 290 H D Total Protein 6.2 L Albumin 3.5 Active Medications Generic Name Dose Route Start Last Admin Trade Name Freq PRN Reason Stop Dose Admin Aspirin 81 mg 12/13/16 10:00 12/15/16 10:06 Asa - PO 81 mg DAILY [facility] Administration Docusate Sodium 100 mg 12/11/16 22:00 12/15/16 13:54 Colace - PO Not Given TID [facility] Heparin Sodium (Porcine) 5,000 unit 12/11/16 22:00 12/15/16 10:05 Heparin - SQ 5,000 unit BID [facility] Administration Dextrose/Sodium Chloride 1,000 mls @ 100 mls/hr 12/15/16 10:45 12/15/16 12:47 D5-Ns - IV 100 mls/hr ASDIR [facility] Administration Mirtazapine 15 mg 12/12/16 22:00 12/14/16 22:00 Remeron - PO Not Given HS [facility] Pantoprazole Sodium 40 mg 12/12/16 10:00 12/15/16 10:11 Protonix - PO 40 mg DAILY [facility] Administration Polyethylene Glycol 17 gm 12/13/16 13:15 12/15/16 10:08 Miralax (For Daily Use) - PO 17 grams DAILY [facility] Administration ASSESSMENT/PLAN: 61 year old male with a pmh myotonic dystrophy, 3rd degree heart block s/p biventricular pacemaker presented to the hospital for chest pain, weight loss, constipation, difficulty swallowing, and weakness. 1. Chest pain - clinically improved, patient is no longer having chest pains -trops 3x negative -echo revealed no significant abnormalities, LV function normal, mild DC -no acute cardiac events today -continue ASA 81mg 2. Severe Protein Deficiency -continue Ensure Enlive 3x day as per dietary -speech/swallow consult suggests esophageal and possibly pharyngeal dysphagia -diet should consist of mechanically soft, foods, thin liquids with ensure supplements 3. Dysphagia -although patient denies current dysphagia symptoms, speech/ swallow consult suggests there is a component of dysphagia. -CT done on previous admission showed esophageal dilatation and a repeat CT chest similarly shows the same dilatation -Dr. Rodriguez from GI evaluated the patient -scheduled EGD/colonoscopy 8:30am -prep for endoscopy tomorrow -weight loss/calorie malnutrition could be due to or exacerbated by his dysphagia 4. Elevated LFTs - possibly medication induced -hold hepatotoxic medications - tylenol, megase, remeron -liver US: unremarkable liver, no biliary tract dilatation noted, several small gallbladder polyps are noted 4. Thyroid nodules - were previously described on CT, but patient elected not to have biopsy done. -further workup should be outpatient 5. Constipation - patient had 1 bowel movement today -continue miralax -cont docusate 6. Myotonic Dystrophy - -no acute intervention 7. Depression -continue mirtazepine 7. FEN -cont D5 - NS -electrolytes are stable -nutrition as per dietary and speech/swallow: mechanically soft, foods, thin liquids with ensure supplements 8. Prophylaxis -heparin 5000 subQ -cont. pantoprazole 40mg 9. Dispo: -prep for EGD/colonoscopy tomorrow Problem List - Problems (1) Atypical chest pain Code(s): R07.89 - OTHER CHEST PAIN (2) Dysphagia Code(s): R13.10 - DYSPHAGIA, UNSPECIFIED (4) Weight loss, abnormal Code(s): R63.4 - ABNORMAL WEIGHT LOSS Visit type - Emergency Visit Emergency Visit: No - New Patient This patient is new to me today: No - Critical Care Critical Care patient: No
[2016-12-15] MEDS ORDERED: PEG3350/SOD SULF,BICARB,CL/KCL 4,000 ML SOLN.RECON PO ONE (18:00)
[2016-12-15] MEDS: MIRTAZAPINE 15 MG TABLET (FP) PO SCH (22:19)
[2016-12-16 06:46] LABS: BASOPHIL 0.9 % (0-2.0); EOSINOPHIL 3.5 % (0-4.5); MCH 30.7 pg (25.7-33.7); MCHC 33.6 g/dl (32.0-35.9); MEAN CELL VOLUME 91.2 fl (80-96); NEUTROPHILS 56.3 % (42.8-82.8); PLATELET COUNT 162 K/MM3 (134-434); RDW 13.9 % (11.9-15.9); WHITE BLOOD COUNT 3.9 K/mm3 (4.0-10.0)
[2016-12-16 07:02] LABS: ALBUMIN 3.5 g/dl (3.4-5.0); ANION GAP 10 (8-16); BILIRUBIN,DIRECT 0.2 mg/dL (0.0-0.2); BILIRUBIN,TOTAL 0.5 mg/dL (0.2-1.0); CALCIUM 8.6 mg/dL (8.5-10.1); CO2 31 mmol/L (21-32); CREATININE 0.4 mg/dL (0.7-1.3); GLUCOSE,RANDOM 72 mg/dL (74-106); MAGNESIUM 2.4 mg/dL (1.8-2.4); PHOSPHOROUS 2.2 mg/dL (2.5-4.9); SGOT/AST 86 U/L (15-37); SGPT/ALT 133 U/L (12-78); TOT PROT 5.8 g/dl (6.4-8.2)
[2016-12-16 07:03] LABS: ALK PHOS 281 U/L (45-117)
[2016-12-16 07:09] LABS: INR 0.98 (0.82-1.09); PROTHROMBIN TIME (PATIENT) 11.1 SEC (9.98-11.88)
[2016-12-16] MEDS: DOCUSATE SODIUM 100 MG CAPSULE (FP) PO SCH ×3 (07:37→21:48)
[2016-12-16] MEDS ORDERED: PROPOFOL 20 ML ONE ×3 (08:32)
--- NOTE | 2016-12-16 09:24 | PROC ---
Endoscopy Procedure Endoscopy procedure completed. Please see scanned procedure report.
[2016-12-16] MEDS: POLYETHYLENE GLYCOL 3350 119 GM BTL PO SCH (10:00)
[2016-12-16] MEDS: HEPARIN NA (PORCINE) 5,000 UNITS/ML 1ML VIAL SQ SCH ×2 (10:00→21:48)
[2016-12-16] MEDS: PANTOPRAZOLE 40 MG TABLET (FP) PO SCH (10:00)
[2016-12-16] MEDS: ASPIRIN 81 MG CHEWABLE TABLETS PO SCH (10:00)
--- NOTE | 2016-12-16 11:50 | PN ---
Teaching Attending Note Name of Resident: Aakash Boles ATTENDING PHYSICIAN STATEMENT I saw and evaluated the patient. I reviewed the resident's note and discussed the case with the resident. I agree with the resident's findings and plan as documented. SUBJECTIVE: Patient seen and examined, awake and appropriate, aware of his EGD/colonoscopy reports and agreable to improved PO intake, no new concerns. OBJECTIVE: Vital Signs Period Temp Pulse Resp BP Sys/Celestin Pulse Ox Last 24 Hr 97 F-98.1 F 65-91 18-20 81-142/47-80 98-100 General no acute distress Abdomen soft, non tender, non distended, positive bowel sounds Chest CTAB, no rales or wheezing Extremities - no edema Current Medications Generic Name Dose Route Start Last Admin Trade Name Freq PRN Reason Stop Dose Admin Aspirin 81 mg 12/13/16 10:00 12/15/16 10:06 Asa - PO 81 mg DAILY [facility] Administration Docusate Sodium 100 mg 12/11/16 22:00 12/16/16 07:37 Colace - PO Not Given TID [facility] Heparin Sodium (Porcine) 5,000 unit 12/11/16 22:00 12/15/16 22:18 Heparin - SQ Not Given BID [facility] Dextrose/Sodium Chloride 1,000 mls @ 100 mls/hr 12/15/16 10:45 12/15/16 12:47 D5-Ns - IV 100 mls/hr ASDIR [facility] Administration Mirtazapine 15 mg 12/12/16 22:00 12/15/16 22:19 Remeron - PO Not Given HS [facility] Pantoprazole Sodium 40 mg 12/12/16 10:00 12/15/16 10:11 Protonix - PO 40 mg DAILY [facility] Administration Polyethylene Glycol 17 gm 12/13/16 13:15 12/15/16 10:08 Miralax (For Daily Use) - PO 17 grams DAILY [facility] Administration Laboratory Results - last 24 hr 12/16/16 12/16/16 12/16/16 06:15 06:15 06:15 WBC 3.9 L RBC 4.39 Hgb 13.5 Hct 40.0 MCV 91.2 MCH 30.7 MCHC 33.6 RDW 13.9 Plt Count 162 MPV 10.0 Neutrophils % 56.3 Lymphocytes % 27.4 Monocytes % 11.9 H Eosinophils % 3.5 Basophils % 0.9 PT with INR 11.10 INR 0.98 Sodium 145 Potassium 4.3 Chloride 104 Carbon Dioxide 31 Anion Gap 10 BUN 10 D Creatinine 0.4 L D Creat Clearance w eGFR > 60 Random Glucose 72 L Calcium 8.6 Phosphorus 2.2 L Magnesium 2.4 Total Bilirubin 0.5 D Direct Bilirubin 0.2 AST 86 H D ALT 133 H Alkaline Phosphatase 281 H Total Protein 5.8 L Albumin 3.5 Liver ultrasound with gall bladder polyps, negative for acute process. LFTs improving Hep panel pending ASSESSMENT AND PLAN: -Chest pain -Dysphagia with concerns for Cervical esophageal dilatation, possible stricture vs motility disorder -Constipation -Severe protein calorie malnutrition -Abnormal LFTs -Neglect concerns PLan: EGD/colonoscopy today, prelim read, neg for acute anatomical concerns. High fiber diet, Currently with no dysphagia concerns, could be from motility disorder vs psychogenic. Outpatient GI follow up if recurrent symptoms. Encourage PO intake, improved currently. D/c IVF. LFTs improved, remeron/megace/tylenol d/raman. Liver US neg for acute concerns. Follow up Hep panel. ?medication induced. COntinue to trend for now. Bowel regimen. ACS ruled out, outpatient cardiology follow up PT eval and CM/social work consult for d/c planning. Anticipate d/c in 24 hours if no new concerns, LFTs improved and disposition arranged. PLan discussed with patient in detail, all questions answered.
--- NOTE | 2016-12-16 12:24 | PN ---
Physical Exam: SUBJECTIVE: Patient seen and examined at bedside. Denies any acute complaints. Patient is a little agitated and wonders when he will leave the hospital. OBJECTIVE: Vital Signs Period Temp Pulse Resp BP Sys/Celestin Pulse Ox Last 24 Hr 97 F-98.1 F 65-91 18-20 81-142/47-80 98-100 Constitutional: Yes: No Distress, Calm, Cachectic Eyes: Yes: Conjunctiva Clear, EOM Intact HENT: Yes: Atraumatic, Normocephalic, Pharyngeal Erythema Neck: Yes: Supple, Trachea Midline Cardiovascular: Yes: Regular Rate and Rhythm Respiratory: Yes: Regular, CTA Bilaterally Gastrointestinal: Yes: Normal Bowel Sounds, Soft Edema: No Peripheral Pulses WNL: Yes Integumentary: Yes: WNL Neurological: Yes: Alert, Oriented ...Motor Strength: WNL Psychiatric: Yes: Alert, Oriented Laboratory Results - last 24 hr 12/16/16 12/16/16 12/16/16 06:15 06:15 06:15 WBC 3.9 L RBC 4.39 Hgb 13.5 Hct 40.0 MCV 91.2 MCH 30.7 MCHC 33.6 RDW 13.9 Plt Count 162 MPV 10.0 Neutrophils % 56.3 Lymphocytes % 27.4 Monocytes % 11.9 H Eosinophils % 3.5 Basophils % 0.9 PT with INR 11.10 INR 0.98 Sodium 145 Potassium 4.3 Chloride 104 Carbon Dioxide 31 Anion Gap 10 BUN 10 D Creatinine 0.4 L D Creat Clearance w eGFR > 60 Random Glucose 72 L Calcium 8.6 Phosphorus 2.2 L Magnesium 2.4 Total Bilirubin 0.5 D Direct Bilirubin 0.2 AST 86 H D ALT 133 H Alkaline Phosphatase 281 H Total Protein 5.8 L Albumin 3.5 Active Medications Generic Name Dose Route Start Last Admin Trade Name Freq PRN Reason Stop Dose Admin Aspirin 81 mg 12/13/16 10:00 12/15/16 10:06 Asa - PO 81 mg DAILY [facility] Administration Docusate Sodium 100 mg 12/11/16 22:00 12/16/16 07:37 Colace - PO Not Given TID [facility] Heparin Sodium (Porcine) 5,000 unit 12/11/16 22:00 12/15/16 22:18 Heparin - SQ Not Given BID [facility] Mirtazapine 15 mg 12/12/16 22:00 12/15/16 22:19 Remeron - PO Not Given HS [facility] Pantoprazole Sodium 40 mg 12/12/16 10:00 12/15/16 10:11 Protonix - PO 40 mg DAILY [facility] Administration Polyethylene Glycol 17 gm 12/13/16 13:15 12/15/16 10:08 Miralax (For Daily Use) - PO 17 grams DAILY [facility] Administration ASSESSMENT/PLAN: 61 year old male with a pmh myotonic dystrophy, 3rd degree heart block s/p biventricular pacemaker presented to the hospital for chest pain, weight loss, constipation, difficulty swallowing, and weakness. 1. Chest pain - clinically improved, patient is no longer having chest pains -trops 3x negative -echo revealed no significant abnormalities, LV function normal, mild AL -no acute cardiac events today -continue ASA 81mg 2. Severe Protein Deficiency -continue Ensure Enlive 3x day as per dietary -speech/swallow consult suggests esophageal and possibly pharyngeal dysphagia -diet should consist of mechanically soft, foods, thin liquids with ensure supplements 3. Dysphagia -although patient denies current dysphagia symptoms, speech/ swallow consult suggests there is a component of dysphagia. -CT done on previous admission showed esophageal dilatation and a repeat CT chest similarly shows the same dilatation -Dr. Rodriguez from GI evaluated the patient -EGD/Colonoscopy done 12/16 -small nodule in the esophagus, sigmoid shape to esophagus -unlikely weight loss is from an anatomical cause of dysphagia, could be either motility issue or psychosocial issue 4. Elevated LFTs - possibly medication induced, now downtrending -hold hepatotoxic medications - tylenol, megase, remeron -liver US: unremarkable liver, no biliary tract dilatation noted, several small gallbladder polyps are noted 4. Thyroid nodules - were previously described on CT, but patient elected not to have biopsy done. -further workup should be outpatient 5. Constipation - patient had 1 bowel movement today -cont miralax -cont docusate 6. Myotonic Dystrophy - -no acute intervention 7. Depression -continue mirtazepine 7. FEN -electrolytes are stable -High-fiber diet as per GI 8. Prophylaxis -heparin 5000 subQ -cont. pantoprazole 40mg 9. Dispo: -plan for D/C tomorrow, -insurance authorized retirement facility placement. Patient is going to be discharged to [facility]. Problem List - Problems (1) Atypical chest pain Code(s): R07.89 - OTHER CHEST PAIN (2) Dysphagia Code(s): R13.10 - DYSPHAGIA, UNSPECIFIED (4) Weight loss, abnormal Code(s): R63.4 - ABNORMAL WEIGHT LOSS Visit type - Emergency Visit Emergency Visit: No - New Patient This patient is new to me today: No - Critical Care Critical Care patient: No
[2016-12-16] MEDS: DEXTROSE 5%-NORMAL SALINE 1,000 ML IV SCH (13:20)
[2016-12-16] MEDS: MIRTAZAPINE 15 MG TABLET (FP) PO SCH ×2 (21:48→21:52)
[2016-12-17] MEDS: DOCUSATE SODIUM 100 MG CAPSULE (FP) PO SCH ×3 (05:36→21:35)
[2016-12-17 08:50] LABS: BASOPHIL 0.6 % (0-2.0); MCH 30.7 pg (25.7-33.7); MCHC 33.7 g/dl (32.0-35.9); MEAN CELL VOLUME 91.1 fl (80-96); MEAN PLT VOLUME 9.8 fl (7.5-11.1); NEUTROPHILS 55.2 % (42.8-82.8); PLATELET COUNT 182 K/MM3 (134-434); RDW 14.3 % (11.9-15.9); WHITE BLOOD COUNT 4.5 K/mm3 (4.0-10.0)
[2016-12-17] MEDS ORDERED: PT OWN MED DRAWER 7, Y5N ONE (09:02)
[2016-12-17] MEDS: PANTOPRAZOLE 40 MG TABLET (FP) PO SCH ×2 (09:08→09:12)
[2016-12-17] MEDS: HEPARIN NA (PORCINE) 5,000 UNITS/ML 1ML VIAL SQ SCH ×2 (09:08→21:35)
[2016-12-17] MEDS: ASPIRIN 81 MG CHEWABLE TABLETS PO SCH (09:08)
[2016-12-17 09:17] LABS: ALBUMIN 3.4 g/dl (3.4-5.0); ALK PHOS 513 U/L (45-117); ANION GAP 4 (8-16); BILIRUBIN,DIRECT 0.3 mg/dL (0.0-0.2); BILIRUBIN,TOTAL 0.6 mg/dL (0.2-1.0); CALCIUM 8.8 mg/dL (8.5-10.1); CO2 32 mmol/L (21-32); CREATININE 0.6 mg/dL (0.7-1.3); GLUCOSE,RANDOM 100 mg/dL (74-106); TOT PROT 6.1 g/dl (6.4-8.2)
[2016-12-17 09:20] LABS: SGOT/AST 468 U/L (15-37); SGPT/ALT 438 U/L (12-78)
[2016-12-17] MEDS: POLYETHYLENE GLYCOL 3350 119 GM BTL PO SCH (09:31)
--- NOTE | 2016-12-17 10:44 | PN ---
Progress Note, THREAD SEPARATOR - Note Progress Note: Selected Entries 12/16/16 12/16/16 12/16/16 01:00 05:45 08:00 Lunch Supper Temperature 98.1 F 97 F L 97.8 F 12/16/16 12/16/16 12/16/16 09:23 12:00 14:47 Lunch 75% Supper Temperature 97.5 F L 98.4 F 12/16/16 12/16/16 12/16/16 17:00 19:15 21:00 Lunch Supper 100% Temperature 98.8 F 97.8 F 12/17/16 12/17/16 01:00 05:00 Lunch Supper Temperature 97.5 F L 98.4 F Laboratory Tests 12/17/16 08:35 WBC 4.5 EGD/Colonoscopy completed. Pt reported to be tolerating regular diet without further c/o chest pain, or any vomiting. If future symptoms of chest pain, build up of secretions/phlegm, vomiting, may benefit from MBS to include esophagus as out pt.
--- NOTE | 2016-12-17 10:53 | PN ---
Progress Note, Physician History of Present Illness: No events. Comfortable. EGD/colonoscopy reports in chart - Current Medication List Current Medications: Active Medications Aspirin (Asa -) 81 mg PO DAILY [facility] Last Admin: 12/17/16 09:08 Dose: 81 mg Docusate Sodium (Colace -) 100 mg PO TID [facility] Last Admin: 12/17/16 05:36 Dose: Not Given Heparin Sodium (Porcine) (Heparin -) 5,000 unit SQ BID [facility] Last Admin: 12/17/16 09:08 Dose: 5,000 unit Mirtazapine (Remeron -) 15 mg PO HS [facility] Last Admin: 12/16/16 21:52 Dose: Not Given Pantoprazole Sodium (Protonix -) 40 mg PO DAILY [facility] Last Admin: 12/17/16 09:12 Dose: Not Given Polyethylene Glycol (Miralax (For Daily Use) -) 17 gm PO DAILY [facility] Last Admin: 12/17/16 09:31 Dose: 17 grams - Objective Vital Signs: Vital Signs Temperature 98.4 F 12/17/16 05:00 Pulse Rate 70 12/17/16 05:00 Respiratory Rate 18 12/17/16 05:00 Blood Pressure 105/56 12/17/16 05:00 O2 Sat by Pulse Oximetry (%) 100 12/16/16 21:00 Constitutional: Yes: No Distress, Calm Eyes: Yes: Conjunctiva Clear HENT: Yes: Atraumatic Neck: Yes: Supple Cardiovascular: Yes: Regular Rate and Rhythm Respiratory: Yes: Regular Gastrointestinal: Yes: Normal Bowel Sounds, Soft. No: Distention, Hematemesis, Melena, Palpable Mass, Pulsatile Mass, Rectal Bleeding, Tenderness, Vomiting Neurological: Yes: Alert, Oriented Labs: CBC, BMP 12/17/16 08:35 12/17/16 08:35 INR, PTT INR 0.98 (0.82-1.09) 12/16/16 06:15 Problem List - Problems (1) Weight loss, abnormal Code(s): R63.4 - ABNORMAL WEIGHT LOSS (2) Dysphagia Code(s): R13.10 - DYSPHAGIA, UNSPECIFIED (3) Liver enzyme elevation Code(s): R74.8 - ABNORMAL LEVELS OF OTHER SERUM ENZYMES Assessment/Plan worsening up liver chemistry asymptomatic. Hepatic panel qd. Remeron appears to be new medication started on this admission. Consider stopping. Tylenol stopped EGD and colonoscopy findings discussed with the patient. Discuss with psychiatry and stop Remron, all hepatotoxic meds. Continue to monitor Hold D/C
[2016-12-17 11:32] LABS: BILIRUBIN,DIRECT 0.2 mg/dL (0.0-0.2); BILIRUBIN,TOTAL 0.9 mg/dL (0.2-1.0); TOT PROT 5.5 g/dl (6.4-8.2)
--- NOTE | 2016-12-17 13:57 | PN ---
Teaching Attending Note Name of Resident: Aakash Boles ATTENDING PHYSICIAN STATEMENT I saw and evaluated the patient. I reviewed the resident's note and discussed the case with the resident. I agree with the resident's findings and plan as documented. SUBJECTIVE: Patient seen and examined. No nausea, vomiting, abdominal pain or jaundice, no diarrhea, tolerating diet well. No other complaints. OBJECTIVE: Vital Signs Period Temp Pulse Resp BP Sys/Celestin Pulse Ox Last 24 Hr 97.5 F-98.8 F 70-85 18-18 94-117/53-56 100 Intake & Output 12/14/16 12/15/16 12/16/16 12/17/16 23:59 23:59 23:59 23:59 Intake Total 1080 1140 1710 200 Output Total 956 616 5244 300 Balance 780 440 610 -100 Weight 107 lb 8 oz 105 lb 2 oz 108 lb 3.2 oz General: sitting in bed in no acute distress CVS S1s2 regular Chest CTAB, no rales or wheezing abdomen soft, NT, ND, positive bowel sounds, neg Kincaid's sign, unable to appreciate hepatosplenomegaly Extremities no edema Current Medications Aspirin (Asa -) 81 mg PO DAILY [facility] Last Admin: 12/17/16 09:08 Dose: 81 mg Docusate Sodium (Colace -) 100 mg PO TID [facility] Last Admin: 12/17/16 05:36 Dose: Not Given Heparin Sodium (Porcine) (Heparin -) 5,000 unit SQ BID [facility] Last Admin: 12/17/16 09:08 Dose: 5,000 unit Sodium Chloride (Normal Saline -) 500 mls @ 500 mls/hr IV ASDIR STA Stop: 12/17/16 15:00 Pantoprazole Sodium (Protonix -) 40 mg PO DAILY [facility] Last Admin: 12/17/16 09:12 Dose: Not Given Polyethylene Glycol (Miralax (For Daily Use) -) 17 gm PO DAILY [facility] Last Admin: 12/17/16 09:31 Dose: 17 grams Laboratory Results - last 24 hr 12/16/16 12/17/16 12/17/16 06:15 08:35 08:35 WBC 4.5 RBC 4.48 Hgb 13.8 Hct 40.8 MCV 91.1 MCH 30.7 MCHC 33.7 RDW 14.3 Plt Count 182 MPV 9.8 Neutrophils % 55.2 Lymphocytes % 29.4 Monocytes % 11.8 H Eosinophils % 3.0 Basophils % 0.6 Sodium 140 Potassium 5.0 Chloride 104 Carbon Dioxide 32 Anion Gap 4 L BUN 18 D Creatinine 0.6 L D Random Glucose 100 D Calcium 8.8 Total Bilirubin 0.6 Direct Bilirubin 0.3 H D AST 468 H D ALT 438 H D Alkaline Phosphatase 513 H D Total Protein 6.1 L Albumin 3.4 Hepatitis A IgM Ab Negative Hep Bs Antigen Negative Hep B Core IgM Ab Negative Hepatitis C Ab (EIA) 0.1 12/17/16 10:40 WBC RBC Hgb Hct MCV MCH MCHC RDW Plt Count MPV Neutrophils % Lymphocytes % Monocytes % Eosinophils % Basophils % Sodium Potassium Chloride Carbon Dioxide Anion Gap BUN Creatinine Random Glucose Calcium Total Bilirubin 0.9 D Direct Bilirubin 0.2 D AST 402 H ALT 414 H Alkaline Phosphatase 450 H Total Protein 5.5 L Albumin 3.0 L Hepatitis A IgM Ab Hep Bs Antigen Hep B Core IgM Ab Hepatitis C Ab (EIA) ASSESSMENT AND PLAN: --Abnormal LFTs -Chest pain -Dysphagia with concerns for Cervical esophageal dilatation, possible stricture vs motility disorder -Constipation -Severe protein calorie malnutrition -Neglect concerns PLan: LFts worsened today. ?medication induced, retrieve records from endscopy about sedation and if any hypotensive episodes. Trial with hydration, follow up. Megace/tylenol d/raman. Hold remeron for now. Hepatitis panel. Daily LFTs. Discuss with GI for further imaging. EGD/colonoscopy results reviewed. High fiber diet, Currently with no dysphagia concerns, could be from motility disorder vs psychogenic. Outpatient GI follow up if recurrent symptoms. Encourage PO intake, improved currently. Bowel regimen. ACS ruled out, outpatient cardiology follow up PT eval and CM/social work consult for d/c planning. Hold off on d/c given worsening LFTs. PLan discussed with patient in detail, all questions answered.
[2016-12-17] MEDS ORDERED: SODIUM CHLORIDE 500 ML IV STA (14:01)
--- NOTE | 2016-12-17 15:39 | PATH ---
Surgical Pathology Report Patient Name: TIAGO MCNEAL [facility]. Rec. #: [id number] /Age/Gender: 1955 (Age: 61) / M Account: [id number] Location: 4 W TELEMETRY U Taken: 12/16/2016 Received: 12/16/2016 Reported: 12/17/2016 Physicians: Rao Rodriguez M.D. Specimen(s) Received A: BX 2ND PORTION DUODENUM NODULE B: BX 2ND PORTION DUODENUM C: BX ANTRUM AND BODY D: BX MID ESOPHAGUS Clinical History Dysphagia, weight loss Gastritis, duodenal nodule, normal colonoscopy Final Diagnosis A. DUODENUM, SECOND PORTION, NODULE, BIOPSY: DUODENAL MUCOSA WITH ACUTE AND CHRONIC DUODENITIS. B. DUODENUM, SECOND PORTION, BIOPSY: DUODENAL MUCOSA WITH ACUTE AND CHRONIC DUODENITIS. C. STOMACH, ANTRUM AND BODY, BIOPSY: GASTRIC ANTRAL AND BODY MUCOSA WITH MILD CHRONIC GASTRITIS. IMMUNOHISTOCHEMICAL STAIN FOR H. PYLORI IS NEGATIVE. D. MID ESOPHAGUS, BIOPSY: SQUAMOUS MUCOSA WITHOUT SIGNIFICANT PATHOLOGIC FINDINGS. Electronically Signed Rae Whaley M.D. Gross Description A. Received in formalin, labeled "biopsy second portion of duodenum nodule" is a fitzgerald, irregular portion of soft tissue measuring 0.3 cm. in greatest dimension. The specimen is submitted in toto in one cassette. B. Received in formalin, labeled "biopsy second portion of duodenum" are 2 fitzgerald, irregular portions of soft tissue measuring 0.1 and 0.3 cm. in greatest dimension. The specimens are submitted in toto in one cassette. C. Received in formalin, labeled "biopsy antrum and body" are 4 fitzgerald, irregular portions of soft tissue ranging from 0.1-0.3 cm. in greatest dimension. The specimens are submitted in toto in one cassette. D. Received in formalin, labeled "biopsy mid esophagus" are 2 fitzgerald, irregular portions of soft tissue averaging 0.3 cm. in greatest dimension. The specimens are submitted in toto in one cassette. [id number]/201612/16/2016
--- NOTE | 2016-12-17 16:56 | PN ---
Physical Exam: SUBJECTIVE: Patient seen and examined at bedside. Patient denies any current complaints. OBJECTIVE: Vital Signs Period Temp Pulse Resp BP Sys/Celestin Pulse Ox Last 24 Hr 97.5 F-98.8 F 70-85 18-20 94-161/53-69 97-100 Constitutional: Yes: No Distress, Calm, Cachectic Eyes: Yes: Conjunctiva Clear, EOM Intact HENT: Yes: Atraumatic, Normocephalic, Pharyngeal Erythema Neck: Yes: Supple, Trachea Midline Cardiovascular: Yes: Regular Rate and Rhythm Respiratory: Yes: Regular, CTA Bilaterally Gastrointestinal: Yes: Normal Bowel Sounds, Soft Edema: No Peripheral Pulses WNL: Yes Integumentary: Yes: WNL Neurological: Yes: Alert, Oriented ...Motor Strength: WNL Psychiatric: Yes: Alert, Oriented Laboratory Results - last 24 hr 12/16/16 12/17/16 12/17/16 06:15 08:35 08:35 WBC 4.5 RBC 4.48 Hgb 13.8 Hct 40.8 MCV 91.1 MCH 30.7 MCHC 33.7 RDW 14.3 Plt Count 182 MPV 9.8 Neutrophils % 55.2 Lymphocytes % 29.4 Monocytes % 11.8 H Eosinophils % 3.0 Basophils % 0.6 Sodium 140 Potassium 5.0 Chloride 104 Carbon Dioxide 32 Anion Gap 4 L BUN 18 D Creatinine 0.6 L D Random Glucose 100 D Calcium 8.8 Total Bilirubin 0.6 Direct Bilirubin 0.3 H D AST 468 H D ALT 438 H D Alkaline Phosphatase 513 H D Total Protein 6.1 L Albumin 3.4 Hepatitis A IgM Ab Negative Hep Bs Antigen Negative Hep B Core IgM Ab Negative Hepatitis C Ab (EIA) 0.1 12/17/16 10:40 WBC RBC Hgb Hct MCV MCH MCHC RDW Plt Count MPV Neutrophils % Lymphocytes % Monocytes % Eosinophils % Basophils % Sodium Potassium Chloride Carbon Dioxide Anion Gap BUN Creatinine Random Glucose Calcium Total Bilirubin 0.9 D Direct Bilirubin 0.2 D AST 402 H ALT 414 H Alkaline Phosphatase 450 H Total Protein 5.5 L Albumin 3.0 L Hepatitis A IgM Ab Hep Bs Antigen Hep B Core IgM Ab Hepatitis C Ab (EIA) Active Medications Generic Name Dose Route Start Last Admin Trade Name Freq PRN Reason Stop Dose Admin Aspirin 81 mg 12/13/16 10:00 12/17/16 09:08 Asa - PO 81 mg DAILY [facility] Administration Docusate Sodium 100 mg 12/11/16 22:00 12/17/16 14:24 Colace - PO Not Given TID [facility] Heparin Sodium (Porcine) 5,000 unit 12/11/16 22:00 12/17/16 09:08 Heparin - SQ 5,000 unit BID [facility] Administration Pantoprazole Sodium 40 mg 12/12/16 10:00 12/17/16 09:12 Protonix - PO Not Given DAILY [facility] Polyethylene Glycol 17 gm 12/13/16 13:15 12/17/16 09:31 Miralax (For Daily Use) - PO 17 grams DAILY [facility] Administration ASSESSMENT/PLAN: 61 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 Transaminitis - likely due to medications vs propofol during EGD -acutely improving, monitor transaminases in the AM -d/c all hepatotoxic medications (remeron, antidepressants) 2. Chest pain - clinically improved, patient is no longer having chest pains -trops 3x negative -echo revealed no significant abnormalities, LV function normal, mild VA -no acute cardiac events today -continue ASA 81mg 3. Severe Protein Deficiency -continue Ensure Enlive 3x day as per dietary -speech/swallow consult suggests esophageal and possibly pharyngeal dysphagia -diet should consist of mechanically soft, foods, thin liquids with ensure supplements 4. Dysphagia -although patient denies current dysphagia symptoms, speech/ swallow consult suggests there is a component of dysphagia. -CT done on previous admission showed esophageal dilatation and a repeat CT chest similarly shows the same dilatation -Dr. Rodriguez from GI evaluated the patient -EGD/Colonoscopy done 12/16 -small nodule in the esophagus, sigmoid shape to esophagus -unlikely weight loss is from an anatomical cause of dysphagia, could be either motility issue or psychosocial issue 5. Elevated LFTs - possibly medication induced, now downtrending -hold hepatotoxic medications - tylenol, megase, remeron -liver US: unremarkable liver, no biliary tract dilatation noted, several small gallbladder polyps are noted 6. Thyroid nodules - were previously described on CT, but patient elected not to have biopsy done. -further workup should be outpatient 7. Constipation - patient had 1 bowel movement today -cont miralax -cont docusate 8. Myotonic Dystrophy - -no acute intervention 9. Depression -continue mirtazepine 10. FEN -electrolytes are stable -High-fiber diet as per GI 11. Prophylaxis -heparin 5000 subQ -cont. pantoprazole 40mg 12. Dispo: -plan for D/C once transaminases have resolved -insurance authorized care home facility placement. Patient is going to be discharged to [facility]. Problem List - Problems (1) Atypical chest pain Code(s): R07.89 - OTHER CHEST PAIN (2) Dysphagia Code(s): R13.10 - DYSPHAGIA, UNSPECIFIED (4) Weight loss, abnormal Code(s): R63.4 - ABNORMAL WEIGHT LOSS Visit type - Emergency Visit Emergency Visit: No - New Patient This patient is new to me today: No - Critical Care Critical Care patient: No
[2016-12-18] MEDS: DOCUSATE SODIUM 100 MG CAPSULE (FP) PO SCH ×3 (05:53→21:53)
--- NOTE | 2016-12-18 06:28 | PN ---
Progress Note, Physician Chief Complaint: Pt A&Ox3; feels weak. History of Present Illness: Pt. was last seen by Dr. Jaramillo (support services tech) on October 23 2015. Generator changed in 2013 in the biventricular defibrillator by [employer]. During last visit, pt. was determined to have complete AV block, AFIB, orthostatic hypotension, but stopped following up. 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 He states that he had a now-resolved left-sided chest pain. His main complains at this point are constipation (last bm 4 days ago) and LLQ pain. Patient is ambulatory at baseline at home using a cane (altered gait), but lives in a 2-story walk-up and avoids leaving his house due to his chronic illness. Pt says emotional issues at home have affected his physical health adversely. - Current Medication List Current Medications: Active Medications Aspirin (Asa -) 81 mg PO DAILY [facility] Last Admin: 12/17/16 09:08 Dose: 81 mg Docusate Sodium (Colace -) 100 mg PO TID [facility] Last Admin: 12/18/16 05:53 Dose: 100 mg Heparin Sodium (Porcine) (Heparin -) 5,000 unit SQ BID [facility] Last Admin: 12/17/16 21:35 Dose: 5,000 unit Pantoprazole Sodium (Protonix -) 40 mg PO DAILY [facility] Last Admin: 12/17/16 09:12 Dose: Not Given Polyethylene Glycol (Miralax (For Daily Use) -) 17 gm PO DAILY [facility] Last Admin: 12/17/16 09:31 Dose: 17 grams - Objective Vital Signs: Vital Signs Temperature 98.7 F 12/18/16 05:49 Pulse Rate 73 12/18/16 05:49 Respiratory Rate 20 12/18/16 05:49 Blood Pressure 94/57 12/18/16 05:49 O2 Sat by Pulse Oximetry (%) 97 12/17/16 21:00 Constitutional: Yes: Anxious Eyes: Yes: WNL HENT: Yes: WNL Neck: Yes: WNL Cardiovascular: Yes: S1, S2 (split) Respiratory: Yes: WNL Gastrointestinal: Yes: Soft ...Rectal Exam: Yes: Deferred Genitourinary: No: Anuria Musculoskeletal: Yes: Muscle Weakness Extremities: Yes: Cool Edema: No Peripheral Pulses WNL: No Peripheral Pulses: Left Doralis Pedis: 1+, Right Dorsalis Pedis: 1+ Integumentary: Yes: WNL Neurological: Yes: Alert, Oriented, Weakness Psychiatric: Yes: Other Labs: CBC, BMP 12/17/16 08:35 12/17/16 08:35 INR, PTT INR 0.98 (0.82-1.09) 12/16/16 06:15 Problem List - Problems (1) Marital or partner relational problem Assessment/Plan: psychiatric consult noted. Code(s): Z63.0 - PROBLEMS IN RELATIONSHIP WITH SPOUSE OR PARTNER (3) Atypical chest pain Assessment/Plan: TNI 0.02-->0.03-->0.02 EKG: Atrial sensed, V paced rhythm Telemetry: no arrhythmias F/u ECHO: normal LVEF; normal chamber sizes; mild SD. Pt gives hx of two stress MIBIs, the last ? 5 yrs ago; was told of "clean arteries". F/u cardiac records from [facility] (Dr. Jaramillo). TFTs WNL. Mildly elevated LDL cholesterol. Caution with use of statin, as AST is mildly elevated; f/u levels. Coronary artery evaluation if not done recently. Code(s): R07.89 - OTHER CHEST PAIN (4) Thyroid lesion Assessment/Plan: f/u nodules Code(s): E07.89 - OTHER SPECIFIED DISORDERS OF THYROID (5) Esophageal dilatation Assessment/Plan: for EGD (6) Elevated LFTs Assessment/Plan: reassess all medications. f/u with GI Code(s): R79.89 - OTHER SPECIFIED ABNORMAL FINDINGS OF BLOOD CHEMISTRY
--- NOTE | 2016-12-18 06:40 | PN ---
Progress Note, Physician Chief Complaint: Pt A&Ox3; no chest pain or dyspnea. History of Present Illness: Pt. was last seen by Dr. Jaramillo (graphic coordinator) on October 23 2015. Generator changed in 2013 in the biventricular defibrillator by [employer]. During last visit, pt. was determined to have complete AV block, AFIB, orthostatic hypotension, but stopped following up. 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 He states that he had a now-resolved left-sided chest pain. His main complains at this point are constipation (last bm 4 days ago) and LLQ pain. Patient is ambulatory at baseline at home using a cane (altered gait), but lives in a 2-story walk-up and avoids leaving his house due to his chronic illness. Pt says emotional issues at home have affected his physical health adversely. - Current Medication List Current Medications: Active Medications Aspirin (Asa -) 81 mg PO DAILY [facility] Last Admin: 12/17/16 09:08 Dose: 81 mg Docusate Sodium (Colace -) 100 mg PO TID [facility] Last Admin: 12/18/16 05:53 Dose: 100 mg Heparin Sodium (Porcine) (Heparin -) 5,000 unit SQ BID [facility] Last Admin: 12/17/16 21:35 Dose: 5,000 unit Pantoprazole Sodium (Protonix -) 40 mg PO DAILY [facility] Last Admin: 12/17/16 09:12 Dose: Not Given Polyethylene Glycol (Miralax (For Daily Use) -) 17 gm PO DAILY [facility] Last Admin: 12/17/16 09:31 Dose: 17 grams - Objective Vital Signs: Vital Signs Temperature 98.7 F 12/18/16 05:49 Pulse Rate 73 12/18/16 05:49 Respiratory Rate 20 12/18/16 05:49 Blood Pressure 94/57 12/18/16 05:49 O2 Sat by Pulse Oximetry (%) 97 12/17/16 21:00 Constitutional: Yes: Calm Eyes: Yes: WNL HENT: Yes: WNL Neck: Yes: WNL Cardiovascular: Yes: Regular Rate and Rhythm Respiratory: Yes: Regular Gastrointestinal: Yes: Soft. No: Tenderness ...Rectal Exam: Yes: Deferred Genitourinary: Yes: Anuria Musculoskeletal: Yes: Muscle Weakness Extremities: Yes: Cool Edema: No Peripheral Pulses WNL: No Peripheral Pulses: Left Doralis Pedis: 1+, Right Dorsalis Pedis: 1+ Integumentary: Yes: WNL Neurological: Yes: Unsteady Gait, Weakness Psychiatric: Yes: Alert, Oriented Labs: CBC, BMP 12/17/16 08:35 12/17/16 08:35 INR, PTT INR 0.98 (0.82-1.09) 12/16/16 06:15 Abnormal Lab Results 12/17/16 12/17/16 12/17/16 08:35 08:35 10:40 Monocytes % 11.8 H Anion Gap 4 L Creatinine 0.6 L D Direct Bilirubin 0.3 H D AST 468 H D 402 H ALT 438 H D 414 H Alkaline Phosphatase 513 H D 450 H Total Protein 6.1 L 5.5 L Albumin 3.0 L Problem List - Problems (1) Marital or partner relational problem Assessment/Plan: psychiatric consult noted. Code(s): Z63.0 - PROBLEMS IN RELATIONSHIP WITH SPOUSE OR PARTNER (3) Atypical chest pain Assessment/Plan: TNI 0.02-->0.03-->0.02 EKG: Atrial sensed, V paced rhythm Telemetry: no arrhythmias F/u ECHO: normal LVEF; normal chamber sizes; mild MD. Pt gives hx of two stress MIBIs, the last ? 5 yrs ago; was told of "clean arteries". F/u cardiac records from [place] [facility] (Dr. Jaramillo). TFTs WNL. Mildly elevated LDL cholesterol. Caution with use of statin, as AST is mildly elevated; f/u levels. Coronary artery evaluation if not done recently (may be done as outpatient). Code(s): R07.89 - OTHER CHEST PAIN (4) Thyroid lesion Assessment/Plan: f/u nodules Code(s): E07.89 - OTHER SPECIFIED DISORDERS OF THYROID (5) Esophageal dilatation Assessment/Plan: s/p EGD/colonoscopy. (6) Elevated LFTs Assessment/Plan: reassess all medications. f/u with GI Code(s): R79.89 - OTHER SPECIFIED ABNORMAL FINDINGS OF BLOOD CHEMISTRY
[2016-12-18 07:34] LABS: BASOPHIL 0.8 % (0-2.0); EOSINOPHIL 3.7 % (0-4.5); MCH 30.5 pg (25.7-33.7); MCHC 33.5 g/dl (32.0-35.9); MEAN CELL VOLUME 90.9 fl (80-96); MEAN PLT VOLUME 10.6 fl (7.5-11.1); NEUTROPHILS 53.7 % (42.8-82.8); PLATELET COUNT 165 K/MM3 (134-434); RDW 14.5 % (11.9-15.9); WHITE BLOOD COUNT 4.7 K/mm3 (4.0-10.0)
[2016-12-18 08:02] LABS: ALBUMIN 2.9 g/dl (3.4-5.0); ANION GAP 7 (8-16); BILIRUBIN,TOTAL 0.6 mg/dL (0.2-1.0); CO2 30 mmol/L (21-32); CREATININE 0.5 mg/dL (0.7-1.3); GLUCOSE,RANDOM 91 mg/dL (74-106); MAGNESIUM 2.5 mg/dL (1.8-2.4); PHOSPHOROUS 3.2 mg/dL (2.5-4.9); TOT PROT 5.4 g/dl (6.4-8.2)
[2016-12-18 08:03] LABS: ALK PHOS 458 U/L (45-117)
[2016-12-18 08:22] LABS: SGOT/AST 494 U/L (15-37); SGPT/ALT 641 U/L (12-78)
--- NOTE | 2016-12-18 09:02 | PN ---
Progress Note, Physician History of Present Illness: Pt. was last seen by Dr. Jaramillo (printing specialist) on October 23 2015. Generator changed in 2013 in the biventricular defibrillator by [employer]. During last visit, pt. was determined to have complete AV block, AFIB, orthostatic hypotension, but stopped following up. 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 He states that he had a now-resolved left-sided chest pain. His main complains at this point are constipation (last bm 4 days ago) and LLQ pain. Patient is ambulatory at baseline at home using a cane (altered gait), but lives in a 2-story walk-up and avoids leaving his house due to his chronic illness. Pt says emotional issues at home have affected his physical health adversely. - Current Medication List Current Medications: Active Medications Aspirin (Asa -) 81 mg PO DAILY [facility] Last Admin: 12/17/16 09:08 Dose: 81 mg Docusate Sodium (Colace -) 100 mg PO TID [facility] Last Admin: 12/18/16 05:53 Dose: 100 mg Heparin Sodium (Porcine) (Heparin -) 5,000 unit SQ BID [facility] Last Admin: 12/17/16 21:35 Dose: 5,000 unit Pantoprazole Sodium (Protonix -) 40 mg PO DAILY [facility] Last Admin: 12/17/16 09:12 Dose: Not Given Polyethylene Glycol (Miralax (For Daily Use) -) 17 gm PO DAILY [facility] Last Admin: 12/17/16 09:31 Dose: 17 grams - Objective Vital Signs: Vital Signs Temperature 98.7 F 12/18/16 05:49 Pulse Rate 73 12/18/16 05:49 Respiratory Rate 20 12/18/16 05:49 Blood Pressure 94/57 12/18/16 05:49 O2 Sat by Pulse Oximetry (%) 97 12/17/16 21:00 Constitutional: Yes: Cachectic Eyes: Yes: WNL, Conjunctiva Clear, EOM Intact HENT: Yes: WNL, Atraumatic, Normocephalic Neck: Yes: WNL, Supple, Trachea Midline Cardiovascular: Yes: WNL, Regular Rate and Rhythm Respiratory: Yes: WNL, Regular, CTA Bilaterally Gastrointestinal: Yes: WNL, Normal Bowel Sounds Genitourinary: Yes: WNL Musculoskeletal: Yes: WNL Extremities: Yes: WNL Edema: No Integumentary: Yes: WNL Neurological: Yes: WNL, Alert, Oriented ...Motor Strength: WNL Psychiatric: Yes: WNL Labs: CBC, BMP 12/18/16 05:20 12/18/16 05:20 INR, PTT INR 0.98 (0.82-1.09) 12/16/16 06:15 Problem List - Problems (1) Atypical chest pain Code(s): R07.89 - OTHER CHEST PAIN (2) Dysphagia Code(s): R13.10 - DYSPHAGIA, UNSPECIFIED (3) Marital or partner relational problem Code(s): Z63.0 - PROBLEMS IN RELATIONSHIP WITH SPOUSE OR PARTNER (5) Weight loss, abnormal Code(s): R63.4 - ABNORMAL WEIGHT LOSS (6) Bronchitis Code(s): J40 - BRONCHITIS, NOT SPECIFIED ACUTE OR CHRONIC (7) Hypoxia Code(s): R09.02 - HYPOXEMIA Assessment/Plan (1) Marital or partner relational problem Assessment/Plan: psychiatric consult noted. Code(s): Z63.0 - PROBLEMS IN RELATIONSHIP WITH SPOUSE OR PARTNER (3) Atypical chest pain Assessment/Plan: TNI 0.02-->0.03-->0.02 EKG: Atrial sensed, V paced rhythm Telemetry: no arrhythmias F/u ECHO: normal LVEF; normal chamber sizes; mild CT. Pt gives hx of two stress MIBIs, the last ? 5 yrs ago; was told of "clean arteries". F/u cardiac records from [facility] (Dr. Jaramillo). TFTs WNL. Mildly elevated LDL cholesterol. Caution with use of statin, as AST is mildly elevated; f/u levels. Coronary artery evaluation if not done recently (may be done as outpatient). Code(s): R07.89 - OTHER CHEST PAIN (4) Thyroid lesion Assessment/Plan: f/u nodules Code(s): E07.89 - OTHER SPECIFIED DISORDERS OF THYROID (5) Esophageal dilatation Assessment/Plan: s/p EGD/colonoscopy. (6) Elevated LFTs Assessment/Plan: reassess all medications. f/u with GI Code(s): R79.89 - OTHER SPECIFIED ABNORMAL FINDINGS OF BLOOD CHEMISTRY
--- NOTE | 2016-12-18 09:21 | PN ---
Teaching Attending Note Name of Resident: Francine Lieberman ATTENDING PHYSICIAN STATEMENT I saw and evaluated the patient. I reviewed the resident's note and discussed the case with the resident. I agree with the resident's findings and plan as documented. SUBJECTIVE: Patient seen and examined, Denies any nausea, vomiting, abdominal pain or diarrhea. No chest pain, eating better. OBJECTIVE: Vital Signs Period Temp Pulse Resp BP Sys/Celestin Pulse Ox Last 24 Hr 97.8 F-98.7 F 71-76 18-20 94-161/56-69 97-97 Intake & Output 12/15/16 12/16/16 12/17/16 12/18/16 23:59 23:59 23:59 23:59 Intake Total 1140 1710 310 Output Total 700 1100 700 Balance 440 610 -390 Weight 107 lb 8 oz 105 lb 2 oz 108 lb 3.2 oz 111 lb GEneral: lying in bed in no acute distress CVS -S1S2 regular, Chest CTAB, no rales or wheezing ABdomen soft, non tender, non distended, positive bowel sound, neg hepatosplenomegaly Extremities no edema Current Medications Aspirin (Asa -) 81 mg PO DAILY [facility] Last Admin: 12/17/16 09:08 Dose: 81 mg Docusate Sodium (Colace -) 100 mg PO TID [facility] Last Admin: 12/18/16 05:53 Dose: 100 mg Heparin Sodium (Porcine) (Heparin -) 5,000 unit SQ BID [facility] Last Admin: 12/17/16 21:35 Dose: 5,000 unit Pantoprazole Sodium (Protonix -) 40 mg PO DAILY [facility] Last Admin: 12/17/16 09:12 Dose: Not Given Polyethylene Glycol (Miralax (For Daily Use) -) 17 gm PO DAILY [facility] Last Admin: 12/17/16 09:31 Dose: 17 grams Laboratory Results - last 24 hr 12/17/16 12/17/16 12/18/16 08:35 10:40 05:20 WBC 4.7 RBC 4.04 Hgb 12.3 D Hct 36.7 MCV 90.9 MCH 30.5 MCHC 33.5 RDW 14.5 Plt Count 165 MPV 10.6 Neutrophils % 53.7 Lymphocytes % 30.0 Monocytes % 11.8 H Eosinophils % 3.7 Basophils % 0.8 Sodium 140 Potassium 5.0 Chloride 104 Carbon Dioxide 32 Anion Gap 4 L BUN 18 D Creatinine 0.6 L D Creat Clearance w eGFR Random Glucose 100 D Calcium 8.8 Phosphorus Magnesium Total Bilirubin 0.6 0.9 D Direct Bilirubin 0.3 H D 0.2 D AST 468 H D 402 H ALT 438 H D 414 H Alkaline Phosphatase 513 H D 450 H Total Protein 6.1 L 5.5 L Albumin 3.4 3.0 L 12/18/16 05:20 WBC RBC Hgb Hct MCV MCH MCHC RDW Plt Count MPV Neutrophils % Lymphocytes % Monocytes % Eosinophils % Basophils % Sodium 143 Potassium 4.8 Chloride 106 Carbon Dioxide 30 Anion Gap 7 L BUN 22 H D Creatinine 0.5 L Creat Clearance w eGFR > 60 Random Glucose 91 Calcium 9.0 Phosphorus 3.2 D Magnesium 2.5 H Total Bilirubin 0.6 D Direct Bilirubin AST 494 H D ALT 641 H D Alkaline Phosphatase 458 H Total Protein 5.4 L Albumin 2.9 L ASSESSMENT AND PLAN: --Abnormal LFTs -Chest pain -Dysphagia with concerns for Cervical esophageal dilatation, possible stricture vs motility disorder -Constipation -Severe protein calorie malnutrition -Neglect concerns PLan: LFts worsened today. ?medication induced, Abdominal exam benign. Megace/tylenol/ remeron d/raman. Hepatitis panel noted. Daily LFTs. GI input appreciated, Check CT A/P given worsening. Avoid hepatotoxic meds. EGD/colonoscopy results reviewed. High fiber diet, Currently with no dysphagia concerns, could be from motility disorder vs psychogenic. Outpatient GI follow up if recurrent symptoms. Encourage PO intake, improved currently. Bowel regimen. ACS ruled out, outpatient cardiology follow up PT eval and CM/social work consult for d/c planning. Hold off on d/c given worsening LFTs. PLan discussed with patient in detail, all questions answered.
[2016-12-18] MEDS: PANTOPRAZOLE 40 MG TABLET (FP) PO SCH (10:56)
[2016-12-18] MEDS: POLYETHYLENE GLYCOL 3350 119 GM BTL PO SCH (11:17)
[2016-12-18] MEDS: HEPARIN NA (PORCINE) 5,000 UNITS/ML 1ML VIAL SQ SCH ×2 (11:17→21:53)
[2016-12-18] MEDS: ASPIRIN 81 MG CHEWABLE TABLETS PO SCH (11:17)
[2016-12-18 16:27] LABS: BASOPHIL 0.7 % (0-2.0); MCH 30.9 pg (25.7-33.7); MCHC 33.7 g/dl (32.0-35.9); MEAN CELL VOLUME 91.5 fl (80-96); MEAN PLT VOLUME 9.5 fl (7.5-11.1); NEUTROPHILS 64.9 % (42.8-82.8); PLATELET COUNT 158 K/MM3 (134-434); RDW 14.7 % (11.9-15.9); WHITE BLOOD COUNT 4.6 K/mm3 (4.0-10.0)
[2016-12-18 17:03] LABS: ANION GAP 9 (8-16); BILIRUBIN,DIRECT 0.2 mg/dL (0.0-0.2); BILIRUBIN,TOTAL 0.5 mg/dL (0.2-1.0); CALCIUM 8.5 mg/dL (8.5-10.1); CO2 28 mmol/L (21-32); CREATININE 0.6 mg/dL (0.7-1.3); GLUCOSE,RANDOM 105 mg/dL (74-106); SGOT/AST 370 U/L (15-37); TOT PROT 5.3 g/dl (6.4-8.2)
[2016-12-18 17:04] LABS: ALK PHOS 461 U/L (45-117)
[2016-12-18 17:13] LABS: SGPT/ALT 606 U/L (12-78)
[2016-12-18 17:22] LABS: INR 0.98 (0.82-1.09); PROTHROMBIN TIME (PATIENT) 11.1 SEC (9.98-11.88)
[2016-12-19] MEDS: DOCUSATE SODIUM 100 MG CAPSULE (FP) PO SCH (06:27)
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
--- NOTE | 2016-12-19 09:06 | EKG ---
Test Reason : Blood Pressure : / mmHG Vent. Rate : 071 BPM Atrial Rate : 071 BPM P-R Int : 136 ms QRS Dur : 148 ms QT Int : 436 ms P-R-T Axes : 000 -47 090 degrees QTc Int : 473 ms AV dual-paced rhythm Biventricular pacemaker detected ABNORMAL ECG WHEN COMPARED WITH ECG OF 12-DEC-2016 10:12, VENT. RATE HAS DECREASED BY 2 BPM Confirmed by RAND CAMILO, DANA ([id number]) on 12/19/2016 9:05:50 AM Referred By: Abi COBOS Confirmed By:DANA GORDILLO MD
[2016-12-19 09:53] LABS: ALBUMIN 2.9 g/dl (3.4-5.0); ALK PHOS 442 U/L (45-117); ANION GAP 5 (8-16); BILIRUBIN,TOTAL 0.5 mg/dL (0.2-1.0); CALCIUM 8.6 mg/dL (8.5-10.1); CO2 30 mmol/L (21-32); CREATININE 0.5 mg/dL (0.7-1.3); GLUCOSE,RANDOM 106 mg/dL (74-106); SGOT/AST 259 U/L (15-37); TOT PROT 5.4 g/dl (6.4-8.2)
[2016-12-19 09:55] LABS: SGPT/ALT 533 U/L (12-78)
[2016-12-19] MEDS: ASPIRIN 81 MG CHEWABLE TABLETS PO SCH (10:36)
[2016-12-19] MEDS: POLYETHYLENE GLYCOL 3350 119 GM BTL PO SCH (10:36)
[2016-12-19] MEDS: PANTOPRAZOLE 40 MG TABLET (FP) PO SCH (10:37)
[2016-12-19 11:51] VITALS: BP 102/60; PULSE 70; TEMP 97.2
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
== END 2016-12-19 13:05 | DRG 91 ==
LOC: JER 09:35 → JERBED 16:01 → J4W 12-12 01:59 → OBSVTOIN 12-13 07:49 → J4W 12-13 16:55
PROVIDERS: ADMIT Internal Medicine; ATTEND Hospitalist
PROC: 0DD68ZX Extraction of Stomach, Via Natural or Artificial Opening Endoscopic, Diagnostic (ICD-10-PCS; 2016-12-16)
PROC: 0DD98ZX Extraction of Duodenum, Via Natural or Artificial Opening Endoscopic, Diagnostic (ICD-10-PCS; principal; 2016-12-16 08:30)
DX: G71.11 Myotonic muscular dystrophy (principal); E43 Unspecified severe protein-calorie malnutrition; I48.92 Unspecified atrial flutter; Z68.1 Body mass index [BMI] 19.9 or less, adult; I44.2 Atrioventricular block, complete; R53.1 Weakness; R07.89 Other chest pain; Z95.0 Presence of cardiac pacemaker; R50.9 Fever, unspecified; R63.4 Abnormal weight loss; F41.8 Other specified anxiety disorders; Z63.0 Problems in relationship with spouse or partner; I95.1 Orthostatic hypotension; N40.0 Benign prostatic hyperplasia without lower urinary tract symptoms; E04.1 Nontoxic single thyroid nodule; K59.09 Other constipation; R13.19 Other dysphagia; R74.8 Abnormal levels of other serum enzymes; R09.02 Hypoxemia; J40 Bronchitis, not specified as acute or chronic; K22.8 Other specified diseases of esophagus; I48.91 Unspecified atrial fibrillation; K25.9 Gastric ulcer, unspecified as acute or chronic, without hemorrhage or perforation; K82.4 Cholesterolosis of gallbladder; N28.1 Cyst of kidney, acquired
CPT/HCPCS: 36415; 71010-TC; 71260-TC; 74177-TC; 74178-TC; 76705-TC; 80048; 80053; 80061; 80074; 80076; 81003; 82550; 82553; 83036; 83605; 83721; 83735; 83880; 84100; 84439; 84443; 84481; 84484; 85025; 85610; 87040; 87086; 88305-TC; 90688; 93005; 93010; 93306-TC; 97116-GP; 97162-GP; 99285-25; G0008; G0378; J1644; Q9967

== ENCOUNTER 2019-04-19 06:30 | Inpatient (IN) | payer OTHER, BC ==
--- NOTE | 2019-04-19 07:37 | PDOC ---
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 Per the patient , "two tuesdays ago" he fell while ambulating on his own volition (he is unable to ambulate on his own per the aide at bedside due to clinical condition) and felt a sudden onset of muscle weakness in the bilateral lower extremities and fell backwards landing on his back. Per the patient, he felt dazed after that and has had persistent lightheadedness since. He has had 3x subsequent falls then which have been more than usual. Endorses currently pain in his left posterior back. Denies the following: fevers, chills, nausea, vomiting, headache , ears/nose/throat pain, chest pain, SOB, abdominal pain, dysuria, hematuria, diarrhea, anemia, and leg pain/swelling. Allergies: NDKA <Cedric Amaya - Last Filed: 04/19/19 16:34> <Sandra Griffin - Last Filed: 04/20/19 09:54> - General Chief Complaint: Lightheaded Stated Complaint: HEAD TRAUMA S/P FALL Time Seen by Provider: 04/19/19 07:22 Past History - Past Medical History Cardiac Disorders: Yes (ATRIAL FLUTTER) COPD: No - Surgical History Cardiac Surgery: Yes (PACEMAKER/DEFIB) - Immunization History Immunization Up to Date: Yes - Psycho Social/Smoking Cessation Hx Smoking History: Never smoked Have you smoked in the past 12 months: No Hx Alcohol Use: No Drug/Substance Use Hx: No Substance Use Type: None Hx Substance Use Treatment: No <Cedric Amaya - Last Filed: 04/19/19 16:34> <Sandra Griffin - Last Filed: 04/20/19 09:54> - Past Medical History Allergies/Adverse Reactions: Allergies Allergy/AdvReac Type Severity Reaction Status Date / Time No Known Allergies Allergy Verified 12/11/16 09:41 Home Medications: Ambulatory Orders Aspirin [ASA -] 81 mg PO DAILY tab.chew 12/19/16 Docusate Sodium [Colace -] 100 mg PO TID cap 12/19/16 Pantoprazole Sodium [Protonix -] 40 mg PO DAILY tab.ec 12/19/16 Acetaminophen [Tylenol] 650 mg PO PRN 04/20/19 Aspirin [ASA -] 325 mg PO DAILY 04/20/19 Bisacodyl [Dulcolax] 5 mg PO PRN 04/20/19 Review of Systems - Review of Systems Able to Perform ROS?: Yes Is the patient limited Azeri proficient: No Constitutional: No: Chills, Diaphoresis, Fever, Weight Stable HEENTM: No: Eye Pain, Ear Pain, Nose Congestion, Throat Swelling, Dental Problems Respiratory: Yes: Cough. No: Shortness of Breath, Productive cough, Hemoptysis Cardiac (ROS): No: Chest Pain, Lightheadedness, Palpitations, Chest Tightness ABD/GI: No: Constipated, Diarrhea, Nausea, Rectal Bleeding, Vomiting, Tarry Stools : No: Dysuria, Hematuria Musculoskeletal: Yes: Back Pain. No: Joint Pain, Neck Pain Integumentary: No: Bruising, Rash Neurological: No: Headache, Numbness, Tingling, Tremors Psychiatric: No: Change in Appetite Endocrine: No: Unexplained Weight Loss Hematologic/Lymphatic: No: Anemia <Cedric Amaya - Last Filed: 04/19/19 16:34> *Physical Exam - Vital Signs Last Vital Signs Temp Pulse Resp BP Pulse Ox 89 18 115/68 97 04/19/19 06:41 04/19/19 06:41 04/19/19 06:41 04/19/19 06:41 - Physical Exam General Appearance: Yes: Nourished, Appropriately Dressed, Thin. No: Apparent Distress, Intoxicated, Obese HEENT: positive: EOMI, ROBERTA, Normal Voice, Symmetrical, Pharynx Normal, Hearing Grossly Normal. negative: TMs Normal (unable to visualzie cerumen ), Pale Conjunctivae, Scleral Icterus (R), Scleral Icterus (L), Muffled/Hoarse voice, Pharyngeal Erythema, Tonsillar Exudate, Tonsillar Erythema, Nasal Congestion, Excessive drooling Neck: positive: Trachea midline, Supple. negative: Tender, Lymphadenopathy (R) , Lymphadenopathy (L) Respiratory/Chest: positive: Lungs Clear, Normal Breath Sounds. negative: Chest Tender, Respiratory Distress, Accessory Muscle Use, Crackles, Rales, Rhonchi, Stridor Cardiovascular: positive: Regular Rhythm, Regular Rate, S1, S2. negative: Systolic Murmur Gastrointestinal/Abdominal: positive: Normal Bowel Sounds, Flat, Soft, Other ( LUQ bony protrusion chronic ). negative: Tender Lymphatic: negative: Adenopathy Musculoskeletal: positive: Normal Inspection, Other (scar noted in the left anterior shoulder). negative: CVA Tenderness, Vertebral Tenderness Extremity: positive: Normal Capillary Refill, Normal Range of Motion. negative : Normal Inspection (muscle atrophy throughout the 4 extremities), Tender, Swelling, Calf Tenderness Integumentary: positive: Normal Color, Dry, Warm. 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 negative: Motor Strength 5/5 (4/5 b/l in LE and UE.) <Cedric Amaya - Last Filed: 04/19/19 16:34> - Vital Signs Last Vital Signs Temp Pulse Resp BP Pulse Ox 72 20 127/59 L 97 04/19/19 07:30 04/19/19 07:30 04/19/19 07:30 04/19/19 07:30 <Sandra Griffin - Last Filed: 04/20/19 09:54> ED Treatment Course - LABORATORY CBC & Chemistry Diagram: 04/19/19 07:50 04/19/19 08:35 <Cedric Amaya - Last Filed: 04/19/19 16:34> - LABORATORY CBC & Chemistry Diagram: 04/20/19 06:05 04/20/19 06:05 - ADDITIONAL ORDERS Additional order review: Laboratory Results 04/19/19 04/19/19 04/19/19 08:35 08:35 07:50 Sodium 142 Cancelled Potassium 3.9 Cancelled Chloride 106 Cancelled Carbon Dioxide 29 Cancelled Anion Gap 7 L Cancelled BUN 13.3 Cancelled Creatinine 0.4 L Cancelled Est GFR (CKD-EPI)AfAm 144.46 Cancelled Est GFR (CKD-EPI)NonAf 124.64 Cancelled Random Glucose 79 Cancelled Calcium 9.1 Cancelled Phosphorus 2.2 L Cancelled Magnesium 2.2 Cancelled Total Bilirubin 0.4 Cancelled AST 26 Cancelled ALT 17 Cancelled Alkaline Phosphatase 179 H Cancelled Creatine Kinase 214 Creatine Kinase Index 1.6 CK-MB (CK-2) 3.6 Troponin I 0.03 Total Protein 5.7 L Cancelled Albumin 3.2 L Cancelled TSH Cancelled 04/19/19 07:50 Sodium Potassium Chloride Carbon Dioxide Anion Gap BUN Creatinine Est GFR (CKD-EPI)AfAm Est GFR (CKD-EPI)NonAf Random Glucose Calcium Phosphorus Magnesium Total Bilirubin AST ALT Alkaline Phosphatase Creatine Kinase Cancelled Creatine Kinase Index CK-MB (CK-2) Troponin I Cancelled Total Protein Albumin TSH 04/19/19 07:50 RBC 4.40 MCV 91.6 MCHC 33.3 RDW 14.5 MPV 9.2 Neutrophils % 83.1 H D Lymphocytes % 9.2 D Monocytes % 6.2 Eosinophils % 0.6 Basophils % 0.9 - Medications Given in the ED: ED Medications Discontinued Medications Generic Name Dose Route Start Last Admin Trade Name Freq PRN Reason Stop Dose Admin Sodium Chloride 500 mls @ 500 mls/hr 04/19/19 08:07 04/19/19 08:45 Normal Saline - IV 04/19/19 09:06 500 mls/hr ASDIR STA Administration <Sandra Griffin - Last Filed: 04/20/19 09:54> Medical Decision Making - Medical Decision Making 63 yo M with a hx of afib (currently on 325 mg of aspirin daily; currently has a pacemaker by [employer] of [place]) and 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 Initial vitals: Initial Vital Signs Pulse Resp BP Pulse Ox 89 18 115/68 97 04/19/19 06:41 04/19/19 06:41 04/19/19 06:41 04/19/19 06:41 Work up: patient presents to the emergency department with recurrent falls Uses medtronic pacemaker: Implant date: 15-Mar-2013 Serial #[id number] Model # [id number]. Patient has a Viva XT POWER HAMMER OPERATOR-D defibrillator implanted. Senior Speech Pathologist is Harry Jaramillo [phone]. Patient ddx: recurrent falls secondary to the following: cardiogenic etiology vs metabolic etiology vs mechanical (myotonic dystrophy) vs infectious etiology vs hypovolemic etiology. Will obtain cbc, cmp, trop, ua, tsh, mag, phos, and ck. Will obtain the following images: head and cervical spine CT, ribs posterior left, cxr, and EKG. Laboratory Tests 04/19/19 04/19/19 04/19/19 07:50 07:50 07:50 WBC 8.2 RBC 4.40 Hgb 13.4 Hct 40.3 MCV 91.6 MCH 30.5 MCHC 33.3 RDW 14.5 Plt Count 214 D MPV 9.2 Absolute Neuts (auto) 6.8 Neutrophils % 83.1 H D Lymphocytes % 9.2 D Monocytes % 6.2 Eosinophils % 0.6 Basophils % 0.9 Nucleated RBC % 0 Sodium Cancelled Potassium Cancelled Chloride Cancelled Carbon Dioxide Cancelled Anion Gap Cancelled BUN Cancelled Creatinine Cancelled Est GFR (CKD-EPI)AfAm Cancelled Est GFR (CKD-EPI)NonAf Cancelled Random Glucose Cancelled Calcium Cancelled Phosphorus Cancelled Magnesium Cancelled Total Bilirubin Cancelled AST Cancelled ALT Cancelled Alkaline Phosphatase Cancelled Creatine Kinase Cancelled Creatine Kinase Index CK-MB (CK-2) Troponin I Cancelled Total Protein Cancelled Albumin Cancelled TSH Cancelled 04/19/19 04/19/19 08:35 08:35 WBC RBC Hgb Hct MCV MCH MCHC RDW Plt Count MPV Absolute Neuts (auto) Neutrophils % Lymphocytes % Monocytes % Eosinophils % Basophils % Nucleated RBC % Sodium 142 Potassium 3.9 Chloride 106 Carbon Dioxide 29 Anion Gap 7 L BUN 13.3 Creatinine 0.4 L Est GFR (CKD-EPI)AfAm 144.46 Est GFR (CKD-EPI)NonAf 124.64 Random Glucose 79 Calcium 9.1 Phosphorus 2.2 L Magnesium 2.2 Total Bilirubin 0.4 AST 26 ALT 17 Alkaline Phosphatase 179 H Creatine Kinase 214 Creatine Kinase Index 1.6 CK-MB (CK-2) 3.6 Troponin I 0.03 Total Protein 5.7 L Albumin 3.2 L TSH imaging negative for acute pathology save for head ct showing contusion with requested follow up imaging. these results were relayed to the [facility] team. Patient to be admitted for recurrent falls in the setting of possible cardiogenic cause vs mechanical <Cedric Amaya - Last Filed: 04/19/19 16:34> - Medical Decision Making X-ray imaging is negative for any acute pathology or fractures in the spine. Cervical spine no fracture or subluxation, alignment is satisfactory, multilevel degenerative disc disease is noted. CT head reveals moderate volume loss with possible faint focal contusion of the right frontal lobe, will need MRI brain or follow-up CT to elucidate and eval for progressive changes. will let inpatient team aware, admitted to Dr Mortensen, for followup imaging. pt is neuro intact, no focal deficits noted. closely monitor. 04/19/19 12:30 04/19/19 12:31 <Sandra Griffin - Last Filed: 04/20/19 09:54> Discharge - Discharge Information Problems reviewed: Yes <Cedric Amaya - Last Filed: 04/19/19 16:34> - Discharge Information Problems reviewed: Yes - Admission Yes <Sandra Griffin - Last Filed: 04/20/19 09:54> - Discharge Information Clinical Impression/Diagnosis: Dizziness, Near syncope Fall Qualifiers: Encounter type: initial encounter Qualified Code(s): W19.XXXA - Unspecified fall, initial encounter Condition: Stable
[2019-04-19] MEDS ORDERED: SODIUM CHLORIDE 500 ML IV STA (08:07)
[2019-04-19 08:44] LABS: BASO % 0.9 % (0-2.0); EOS % 0.6 % (0-4.5); HEMATOCRIT 40.3 % (35.4-49); HEMOGLOBIN 13.4 GM/dL (11.7-16.9); LYMPH % 9.2 % (8-40); MCH 30.5 pg (25.7-33.7); MCHC 33.3 g/dl (32.0-35.9); MEAN CELL VOLUME 91.6 fl (80-96); MEAN PLT VOLUME 9.2 fl (7.5-11.1); MONO % 6.2 % (3.8-10.2); NEUT % 83.1 % (42.8-82.8); PLATELET COUNT 214 K/MM3 (134-434); RDW 14.5 % (11.9-15.9); WHITE BLOOD COUNT 8.2 K/mm3 (4.0-10.0)
--- NOTE | 2019-04-19 08:46 | PDOC ---
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 Per the patient, beginning 2 wks ago, he fell while ambulating on his own volition (he is unable to ambulate on his own per the aide at bedside due to clinical condition) and felt a sudden onset of muscle weakness in the bilateral lower extremities and fell backwards landing on his back. Per the patient, he felt dazed after that and has had persistent lightheadedness since. He has had 3x subsequent falls then which have been more than usual. Endorses currently pain in his left posterior back. Denies the following: fevers, chills, nausea, vomiting, headache, ears/nose/ throat pain, chest pain, SOB, abdominal pain, dysuria, hematuria, diarrhea, anemia, and leg pain/swelling. - Physicial Exam PE: 04/19/19 08:41 Agree with the resident's HPI and PE as documented in the electronic medical record. NAD, older than stated age, cachectic, frail appearing, EOMI, PERRL, nl conjunctiva, anicteric; dry oral mucosa, neck supple. left ppm palpated. lungs clear, RRR, abdomen soft nontender. no rebound, guarding. Back without midline tenderness along [id number] spine. +left sided paravertebral/ thoracic TTP, no crepitus or skin discoloration. PARRISH x4, no focal neuro deficits. No peripheral edema. normal color for ethnicity, WWP. - Medical Decision Making 04/19/19 08:45 Vital Signs Temp Pulse Resp BP Pulse Ox 72 20 127/59 L 97 04/19/19 07:30 04/19/19 07:30 04/19/19 07:30 04/19/19 07:30 VS reviewed, wnl. normotensive. no tachy breathing comfortably no e/o trauma 2 week history of dizziness/frequent falls, unsafe for discharge near syncope workup ddx. arrhythmia, ACS, infection, anemia, electrolyte/metabolic derangements. labs and lytes wnl. trop neg, reassuring ecg with paced pattern, unchanged from previous. no concordant changes or e/o sgarbossa's. no reciprocal changes. old ST elevations seen in anterolateral distribution, which are unchanged, upsloping admit for near syncope, frequent falls, unsafe for discharge, serial trops, medical management, PT 04/19/19 08:46 04/19/19 11:21 04/19/19 11:23 Heart Score/ECG Review #1 ECG reviewed & interpreted by me at: 09:45 Compared to previous ECG there are: No significant change 04/19/19 10:09 EKG paced pattern at [address] and T wave segments and morphology unchanged with upsloping ST elevations in the V3 to V6 distribution as well as inferiorly , which are similar to his previous EKG. no reciprocal ST depressions. Nonspecific T wave abnormalities - poor baseline 2/2 artifact on repeat EKG attempts.
[2019-04-19 10:23] LABS: MAGNESIUM 2.2 mg/dL (1.8-2.4); PHOSPHOROUS 2.2 mg/dL (2.5-4.9)
[2019-04-19 10:28] LABS: ALBUMIN 3.2 g/dl (3.4-5.0); BILIRUBIN,TOTAL 0.4 mg/dL (0.2-1); BLOOD UREA NITROGEN 13.3 mg/dL (7-18); CALCIUM 9.1 mg/dL (8.5-10.1); CREATININE 0.4 mg/dL (0.55-1.3); POTASSIUM 3.9 mmol/L (3.5-5.1); TOT PROT 5.7 g/dl (6.4-8.2)
[2019-04-19] MEDS ORDERED: ACETAMINOPHEN 325 MG TABLET (FP) PO ONE (14:57)
--- NOTE | 2019-04-19 14:59 | HP ---
Admitting History and Physical - Primary Care Physician PCP: Harry Jaramillo A - Admission Chief Complaint: frequent falls History of Present Illness: 63 year old male with PMH aflutter, s/p several conversions, s/p PPM, anxiety, myotonic dystrophy presents to the ED with frequent falls. he is unable to tell the exact date of the last fall. he eludes to sometime last week , he states he fell on his left side and was down for approx 30 minutes. he states he lives with his and daughter. he doesnt use any canes or walkers. only medication he takes daily is asa 325, he denies hitting his head. he denies chest pains, pressure, n/v/d. he reports +headache. he denies vision changes/dizziness/paresthesias. 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) Cardiovascular: Yes: CHF, Other (aflutter) Psych: Yes: Anxiety Musculoskeletal: Yes: Other (myotoic dystrophy) - Past Surgical History Past Surgical History: Yes: None - Smoking History Smoking history: Never smoked Have you smoked in the past 12 months: No - Alcohol/Substance Use Hx Alcohol Use: No - Social History Usual Living Arrangement: Yes: With Spouse Home Medications - Allergies Allergies/Adverse Reactions: Allergies Allergy/AdvReac Type Severity Reaction Status Date / Time No Known Allergies Allergy Verified 12/11/16 09:41 - Home Medications Home Medications: Ambulatory Orders Aspirin [ASA -] 81 mg PO DAILY tab.chew 12/19/16 Docusate Sodium [Colace -] 100 mg PO TID cap 12/19/16 Pantoprazole Sodium [Protonix -] 40 mg PO DAILY tab.ec 12/19/16 Family Medical History Family History: Unable to Obtain Review of Systems - Review of Systems Constitutional: reports: Malaise, Weakness Eyes: reports: No Symptoms HENT: reports: No Symptoms Neck: reports: No Symptoms Cardiovascular: reports: No Symptoms Respiratory: reports: No Symptoms Gastrointestinal: reports: No Symptoms Genitourinary: reports: No Symptoms Breasts: reports: No Symptoms Reported Musculoskeletal: reports: Muscle Weakness Integumentary: reports: No Symptoms Neurological: reports: Weakness Endocrine: reports: No Symptoms Hematology/Lymphatic: reports: No Symptoms Psychiatric: reports: Anxiety Physical Examination Vital Signs: Vital Signs Temperature Pulse Rate 72 02/27/20 07:30 Respiratory Rate 20 04/19/19 07:30 Blood Pressure 127/59 L 04/19/19 07:30 O2 Sat by Pulse Oximetry (%) 97 04/19/19 07:30 Constitutional: Yes: Cachectic, Thin HENT: Yes: Atraumatic, Normocephalic Neck: Yes: Supple Cardiovascular: Yes: Regular Rate and Rhythm Respiratory: Yes: Regular, CTA Bilaterally Gastrointestinal: Yes: Normal Bowel Sounds, Soft Extremities: Yes: WNL Integumentary: Yes: WNL Neurological: Yes: Alert Labs: CBC, BMP 04/19/19 07:50 04/19/19 08:35 Imaging - Results Chest X-ray: Report Reviewed X-ray: Report Reviewed Cat Scan: Report Reviewed Problem List - Problems (1) Near syncope Assessment/Plan: cardiology eval cervical spine/head ct with right frontal lobe contusion- will do f/u head ct t9 partial compression fx check carotids check echo has PPM PT eval Code(s): R55 - SYNCOPE AND COLLAPSE (2) Malnutrition Assessment/Plan: nutrition eval Code(s): E46 - UNSPECIFIED PROTEIN-CALORIE MALNUTRITION (3) Atrial flutter Assessment/Plan: cardio eval resume asa tomorrow Code(s): I48.92 - UNSPECIFIED ATRIAL FLUTTER (4) Myotonic dystrophy Assessment/Plan: PT/OT eval
[2019-04-19] MEDS ORDERED: ACETAMINOPHEN 325 MG TABLET (FP) ONE (16:09)
--- NOTE | 2019-04-19 16:11 | EKG ---
Test Reason : Blood Pressure : / mmHG Vent. Rate : 082 BPM Atrial Rate : 069 BPM P-R Int : 112 ms QRS Dur : 162 ms QT Int : 470 ms P-R-T Axes : 000 -69 094 degrees QTc Int : 549 ms POOR DATA QUALITY, INTERPRETATION MAY BE ADVERSELY AFFECTED AV dual-paced rhythm WITH FREQUENT sinus complexes AND WITH OCCASIONAL PREMATURE VENTRICULAR COMPLEXES ABNORMAL ECG WHEN COMPARED WITH ECG OF 18-DEC-2016 09:32, PREMATURE VENTRICULAR COMPLEXES ARE NOW PRESENT VENT. RATE HAS INCREASED BY 11 BPM Confirmed by ANNA HOLLAND MD ([id number]) on 04/19/2019 4:10:59 PM Referred By: Confirmed By:ANNA HOLLAND MD
--- NOTE | 2019-04-19 17:52 | CON.CARD ---
Consult Consult Specialty:: Cardiology Referred by:: Dr. 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 Jaramillo at [facility], orthostatic hypotension now admitted with recurrent falls with L sided back pain. pt seen and examined in the ER in nad. unable to provide a clear history of the events. denies any ICD shocks. denies chest pain, sob, palpitations, pnd, orthopnea, or LE edema. 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) Cardio/Vascular: Yes: CHF, Other (aflutter) Psych: Yes: Anxiety Musculoskeletal: Yes: Other (myotoic dystrophy) - Past Surgical History Past Surgical History: Yes: None - Alcohol/Substance Use Hx Alcohol Use: No - Smoking History Smoking history: Never smoked Have you smoked in the past 12 months: No - Social History Usual Living Arrangement: With Spouse Home Medications - Allergies Allergies/Adverse Reactions: Allergies Allergy/AdvReac Type Severity Reaction Status Date / Time No Known Allergies Allergy Verified 12/11/16 09:41 - Home Medications Home Medications: Ambulatory Orders Aspirin [ASA -] 81 mg PO DAILY tab.chew 12/19/16 Docusate Sodium [Colace -] 100 mg PO TID cap 12/19/16 Pantoprazole Sodium [Protonix -] 40 mg PO DAILY tab.ec 12/19/16 Family Medical History Family History: Denies Review of Systems - Review of Systems Constitutional: reports: Weakness Eyes: reports: No Symptoms. denies: Blind Spots, Blurred Vision, Double Vision , Eye Pain, Floaters, Photophobia, Recent Change in Vision, Other HENT: denies: No Symptoms, Difficult Swallowing, Ear Discharge, Ear Pain, Epistaxis, Gingival Bleeding, Hearing Loss, Mouth Swelling, Nasal Congestion, Ocular Prosthesis, Throat Pain, Toothache, Ringing in Ears, Other Neck: denies: No Symptoms, Decreased ROM, Lumps, Pain on Movement, Stiffness, Swollen Glands, Tenderness, Other Cardiovascular: denies: No Symptoms, Chest Pain, Edema, Palpitations, Shortness of Breath, Other Respiratory: denies: No Symptoms, Cough, Exercise Intolerance, Hemoptysis, Orthopnea, PND, Snoring, SOB, SOB on Exertion, Wheezing, Other Gastrointestinal: denies: No Symptoms, Abdominal Pain, Bloating, Constipation, Diarrhea, Dysphagia, Indigestion, Melena, Nausea, Rectal Bleeding, Vomiting, Vomiting Blood, Other Genitourinary: denies: No Symptoms, Burning, Discharge, Dysuria, Flank Pain, Frequency, Hematuria, Incontinence, Lesions, Menses, Pain, Testicular Mass, Testicular Pain, Testicular Swelling, Urgency, Vaginal Bleeding, Other Musculoskeletal: reports: Back Pain, Extremity Pain, Muscle Pain, Muscle Weakness. denies: No Symptoms, Crepitus, Decreased ROM, Joint Pain, Joint Swelling, Muscle Cramps, Other Integumentary: denies: No Symptoms, Blister, Bruising, Change in Color, Eczema, Erythema, Incision, Lesions, Lump, Pallor, Pruritis, Rash, Wound, Other Neurological: denies: No Symptoms, Change in LOC, Change in Speech, Confusion, Dizziness, Headache, Incoordination, Numbness, Parasthesia, Pre-Existing Deficit , Seizure, Syncope, Tremors, Unsteady Gait, Weakness, Other Endocrine: denies: No Symptoms, Excessive Sweating, Flushing, Increased Hunger, Increased Thirst, Intolerance to Cold, Intolerance to Heat, Unexplained Weight Gain, Unexplained Weight Loss, Other Hematology/Lymphatic: denies: No Symptoms, Easily Bruised, Excessive Bleeding, Swollen Glands, Other Psychiatric: denies: No Symptoms, Altered Sleep Pattern, Anxiety, Depression, Hallucinations, Panic, Paranoia, Suicidal, Other Vital Signs: Vital Signs Temperature Pulse Rate 72 04/19/19 07:30 Respiratory Rate 20 04/19/19 07:30 Blood Pressure 127/59 L 04/19/19 07:30 O2 Sat by Pulse Oximetry (%) 97 04/19/19 11:01 Constitutional: Yes: No Distress, Calm, Thin Eyes: Yes: Conjunctiva Clear, EOM Intact HENT: Yes: Atraumatic, Normocephalic Neck: Yes: Supple, Trachea Midline Respiratory: Yes: Regular, CTA Bilaterally. No: Rales, Rhonchi, Wheezes Gastrointestinal: Yes: Normal Bowel Sounds, Soft. No: Distention, Tenderness Cardiovascular: Yes: Regular Rate and Rhythm. No: Bradycardia, Tachycardia, Pulse Irregular, Gallop, Rub, Varicosities JVD: No Carotid Bruit: No PMI: Non-Displaced Heart Sounds: Yes: S1, S2. No: Split S2, S3, S4, Clicks, Gallop, Rub, Bruit Murmur: No: Systolic Murmur, Diastolic Murmur Edema: No Peripheral Pulses WNL: Yes Neurological: Yes: Alert, Oriented Psychiatric: Yes: Alert, Oriented - Other Data Labs, Other Data: CBC, BMP 04/19/19 07:50 04/19/19 08:35 Troponin, BNP 04/19/19 04/19/19 04/19/19 07:50 08:35 16:40 Troponin I Cancelled 0.03 0.06 H Troponin, BNP 04/19/19 04/19/19 04/19/19 07:50 08:35 16:40 Troponin I Cancelled 0.03 0.06 H ekg av paced with occasional pvcs Echo: Report Reviewed Imaging - Results Chest X-ray: Report Reviewed, Image Reviewed EKG: Report Reviewed, Image Reviewed Other: Report Reviewed, Image Reviewed Assessment/Plan 63 year old man with 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 Jaramillo at [facility], orthostatic hypotension now admitted with recurrent falls with L sided back pain. pt seen and examined in the ER in nad. unable to provide a clear history of the events. denies any ICD shocks. denies chest pain, sob, palpitations, pnd, orthopnea, or LE edema. echo 2017 normal lvef, mild valvular abnl reported Stress test 5 years ago wnl Falls-h/o recurrent falls, unclear that recent falls were syncopal events -not c/w ACS -last echo showed normal LVEF in 2017 -can repeat echo to re-evaluate -please request medtronic to interrogate ICD to evaluate for arrhythmias during these episodes -check orthostatic BP atrial flutter -known h/o with prior cardioversions -not on full AC at home, on ASA -cont ASA if safe to do so -outpatient fup with his medical care manager
[2019-04-19] MEDS: DOCUSATE SODIUM 100 MG CAPSULE (FP) PO SCH (22:34)
[2019-04-19] MEDS: HEPARIN NA (PORCINE) 5,000 UNITS/ML 1ML VIAL SQ SCH (22:35)
[2019-04-20] MEDS: ACETAMINOPHEN 325 MG TABLET (FP) PO PRN ×3 (01:28→17:50)
[2019-04-20] MEDS: DOCUSATE SODIUM 100 MG CAPSULE (FP) PO SCH ×3 (05:49→21:39)
[2019-04-20 06:55] LABS: BASO % 1.4 % (0-2.0); HEMATOCRIT 35.9 % (35.4-49); HEMOGLOBIN 12.2 GM/dL (11.7-16.9); LYMPH % 15.8 % (8-40); MCH 30.6 pg (25.7-33.7); MCHC 33.8 g/dl (32.0-35.9); MEAN CELL VOLUME 90.4 fl (80-96); MONO % 8.3 % (3.8-10.2); NEUT % 72.5 % (42.8-82.8); PLATELET COUNT 177 K/MM3 (134-434); RBC 3.97 M/mm3 (4.00-5.60)
[2019-04-20 07:01] LABS: INR 1.11 (0.83-1.09); PROTHROMBIN TIME (PATIENT) 13.1 SEC (9.7-13.0)
[2019-04-20 07:22] LABS: ALBUMIN 3.4 g/dl (3.4-5.0); BILIRUBIN,TOTAL 0.6 mg/dL (0.2-1); BLOOD UREA NITROGEN 12.4 mg/dL (7-18); CALCIUM 9.2 mg/dL (8.5-10.1); CREATININE 0.5 mg/dL (0.55-1.3); MAGNESIUM 2.2 mg/dL (1.8-2.4); PHOSPHOROUS 2.3 mg/dL (2.5-4.9); POTASSIUM 3.8 mmol/L (3.5-5.1); TOT PROT 5.8 g/dl (6.4-8.2)
--- NOTE | 2019-04-20 08:13 | PN ---
Progress Note, Physician Chief Complaint: Syncope History of Present Illness: Previous notes and events reviewed awake and alert NAD denies chest pain or palpitations complain of left rib pain - Current Medication List Current Medications: Active Medications Acetaminophen (Tylenol -) 650 mg PO Q4H PRN PRN Reason: HEADACHE Last Admin: 04/20/19 05:53 Dose: 650 mg Aspirin (Asa -) 81 mg PO DAILY [facility] Docusate Sodium (Colace -) 100 mg PO TID [facility] Last Admin: 04/20/19 05:49 Dose: 100 mg Heparin Sodium (Porcine) (Heparin -) 5,000 unit SQ BID [facility] Last Admin: 04/19/19 22:35 Dose: 5,000 unit Pantoprazole Sodium (Protonix -) 40 mg PO DAILY [facility] - Objective Vital Signs: Vital Signs Temperature 7.6 F L 04/20/19 05:45 Pulse Rate 77 04/20/19 05:45 Respiratory Rate 16 04/20/19 05:45 Blood Pressure 128/73 04/20/19 05:45 O2 Sat by Pulse Oximetry (%) 97 04/19/19 20:00 Constitutional: Yes: No Distress, Calm, Cachectic Eyes: Yes: Conjunctiva Clear HENT: Yes: Atraumatic Cardiovascular: Yes: Regular Rate and Rhythm Respiratory: Yes: Regular, Diminished Gastrointestinal: Yes: Normal Bowel Sounds, Soft Genitourinary: Yes: Incontinence Musculoskeletal: Yes: Muscle Weakness Extremities: Yes: WNL Edema: No Neurological: Yes: Alert, Oriented Psychiatric: Yes: Alert, Oriented Labs: CBC, BMP 04/20/19 06:05 04/20/19 06:05 INR, PTT INR 1.11 (0.83-1.09) H 04/20/19 06:05 Problem List - Problems (1) Atrial flutter Assessment/Plan: Cardiology consult Tele monitoring Aspirin Code(s): I48.92 - UNSPECIFIED ATRIAL FLUTTER (2) Fall Assessment/Plan: Fall precaution PT Cervical spine CT scan shows no gross fracture or subluxation, no jumped facets , moderate degenerative disc disease at c6-c7 level with mid left unconvertebral hypertrophy, mild degenerative disc disease c5-c6 Head CT scan shows moderate volume loss, possible faint contusion in right frontal lobe, superiorly/medially for which correlation with brain MRI Rib Xray shows no blastic or lytic changes and no sign of a gross fracture, pneumothorax, pleural fluid, or atelectasis not seen, partial compression of T9 Thoracic Spine Xray shows partial compression T9 vertebral body Orthopedic consult Code(s): W19.XXXA - UNSPECIFIED FALL, INITIAL ENCOUNTER Qualifiers: Encounter type: initial encounter Qualified Code(s): W19.XXXA - Unspecified fall, initial encounter (3) Near syncope Assessment/Plan: Cardiology and Neurology on board Fall precaution PT Head CT scan shows moderate volume loss, possible faint contusion in right frontal lobe, superiorly/medially for which correlation with brain MRI Carotid US shows mild intimal thickening at the common carotid bifurcation with small plaques at the bifurcation/bulb, bilaterally without evidence of hemodynamically significant stenosis tele monitoring repeat Head CT scan pending Code(s): R55 - SYNCOPE AND COLLAPSE (4) Dizziness Assessment/Plan: Neurology consult repeat Head CT scan pending Fall precaution tele monitoring Head CT scan shows moderate volume loss, possible faint contusion in right frontal lobe, superiorly/medially for which correlation with brain MRI Carotid US shows mild intimal thickening at the common carotid bifurcation with small plaques at the bifurcation/bulb, bilaterally without evidence of hemodynamically significant stenosis Code(s): R42 - DIZZINESS AND GIDDINESS Assessment/Plan see problem list dvt ppx
[2019-04-20] MEDS: HEPARIN NA (PORCINE) 5,000 UNITS/ML 1ML VIAL SQ SCH ×2 (09:01→21:39)
[2019-04-20] MEDS: ASPIRIN 81 MG CHEWABLE TABLETS PO SCH (09:02)
[2019-04-20] MEDS: PANTOPRAZOLE 40 MG TABLET PO SCH (09:02)
--- NOTE | 2019-04-20 13:22 | CON.ORTH ---
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 () Cardio/Vascular: Yes: CHF, Other (aflutter) Psych: Yes: Anxiety Musculoskeletal: Yes: Other (myotoic dystrophy) - Past Surgical History Past Surgical History: Yes: None - Alcohol/Substance Use Hx Alcohol Use: No - Smoking History Smoking history: Never smoked Have you smoked in the past 12 months: No - Social History Usual Living Arrangement: With Spouse Home Medications - Allergies Allergies/Adverse Reactions: Allergies Allergy/AdvReac Type Severity Reaction Status Date / Time No Known Allergies Allergy Verified 12/11/16 09:41 - Home Medications Home Medications: Ambulatory Orders Aspirin [ASA -] 81 mg PO DAILY tab.chew 12/19/16 Docusate Sodium [Colace -] 100 mg PO TID cap 12/19/16 Pantoprazole Sodium [Protonix -] 40 mg PO DAILY tab.ec 12/19/16 Acetaminophen [Tylenol] 650 mg PO PRN 04/20/19 Aspirin [ASA -] 325 mg PO DAILY 04/20/19 Bisacodyl [Dulcolax] 5 mg PO PRN 04/20/19 Physical Exam for Ortho Vital Signs: Vital Signs Temperature 97.5 F L 04/20/19 10:00 Pulse Rate 69 04/20/19 10:00 Respiratory Rate 18 04/20/19 10:00 Blood Pressure 138/76 04/20/19 10:00 O2 Sat by Pulse Oximetry (%) 98 04/20/19 09:00 Labs: CBC, BMP 04/20/19 06:05 04/20/19 06:05 INR, PTT INR 1.11 (0.83-1.09) H 04/20/19 06:05 Other Findings/Remarks: T-spine- mild ttp mid paraspinals, good rom, strength 5/5, nvi Imaging - Results X-ray: Image Reviewed Assessment/Plan 63 year old male with PMH aflutter, s/p several conversions, s/p PPM, anxiety, myotonic dystrophy presents to the ED with frequent falls. He is unable to tell the exact date of the last fall. He eludes to sometime last week , he states he fell on his left side and was down for approx 30 minutes. He states he lives with his and daughter. He doesnt use any canes or walkers. only medication he takes daily is asa 325, He denies hitting his head. Denies chest pains, pressure, n/v/d. he reports +headache. he denies vision changes/ dizziness/paresthesias. a/p- T9 compression fx NTD wbat oob pain control ok to d/c from ortho pov d/w Dr. Nguyen
--- NOTE | 2019-04-20 15:24 | ECHO ---
Name: TIAGO MCNEAL Exam:Adult Echocardiogram Study Date: 04/20/2019 02:51 PM Age: 63 yrs Reason For Study: Arrhythmia Height: 69 in Weight: 125 lb BSA: 1.7 m2 MMode/2D Measurements & Calculations IVSd: 1.0 cm Ao root diam: 3.7 cm LVIDd: 4.0 cm LA dimension: 2.2 cm LVIDs: 3.1 cm ACS: 2.4 cm LVPWd: 0.98 cm IVSs: 1.2 cm LVPWs: 1.1 cm EDV(Teich): 69.5 ml ESV(Teich): 39.4 ml LVOT diam: 2.5 cm TAPSE: 1.6 cm Doppler Measurements & Calculations TR max obdulia: 181.9 cm/sec PA V2 max: 84.2 cm/sec TR max P.4 mmHg PA max P.8 mmHg PI end-d obdulia: 100.4 cm/sec Tech Comments TDS. Very thin. No apical views. Would not stay still. Left Ventricle Left ventricular systolic function is normal. Ejection Fraction = 50-55%. Right Ventricle There is a pacemaker lead in the right ventricle. Atria Normal left and right atrial size and function. Mitral Valve The mitral valve is normal in structure and function. There is no mitral valve stenosis. Tricuspid Valve The tricuspid valve is normal in structure and function. There is mild tricuspid regurgitation. Aortic Valve The aortic valve is trileaflet. No hemodynamically significant valvular aortic stenosis. Mild aortic regurgitation. Pulmonic Valve The pulmonic valve is not well seen, but is grossly normal. There is no pulmonic valvular stenosis. T race to mild pulmonic valvular regurgitation. Great Vessels Mild aortic root dilatation. Mildly dilated aortic arch. The aortic root measures 3.7cm; the aortic a rch measures 4.2cm. Pericardium/Pleura There is no pericardial effusion. Interpretation Summary Left ventricular systolic function is normal. Ejection Fraction = 50-55%. There is a pacemaker lead in the right ventricle. There is mild tricuspid regurgitation. Mild aortic regurgitation. Mild aortic root dilatation. Mildly dilated aortic arch. The aortic root measures 3.7cm; the aortic arch measures 4.2cm. There is no pericardial effusion. MD Fiore *Glenn 04/20/2019 03:24 PM
--- NOTE | 2019-04-20 16:56 | PN ---
Progress Note, Physician History of Present Illness: seen and examined today. c/o pain from bladder urinary retention. receiving a ellington. - Current Medication List Current Medications: Active Medications Acetaminophen (Tylenol -) 650 mg PO Q4H PRN PRN Reason: HEADACHE Last Admin: 04/20/19 05:53 Dose: 650 mg Aspirin (Asa -) 81 mg PO DAILY [facility] Last Admin: 04/20/19 09:02 Dose: 81 mg Docusate Sodium (Colace -) 100 mg PO TID [facility] Last Admin: 04/20/19 13:33 Dose: Not Given Heparin Sodium (Porcine) (Heparin -) 5,000 unit SQ BID [facility] Last Admin: 04/20/19 09:01 Dose: 5,000 unit Pantoprazole Sodium (Protonix -) 40 mg PO DAILY [facility] Last Admin: 04/20/19 09:02 Dose: 40 mg - Objective Vital Signs: Vital Signs Temperature 98.3 F 04/20/19 14:45 Pulse Rate 83 04/20/19 14:45 Respiratory Rate 18 04/20/19 14:45 Blood Pressure 135/74 04/20/19 14:45 O2 Sat by Pulse Oximetry (%) 98 04/20/19 09:00 Constitutional: Yes: No Distress, Thin Eyes: Yes: Conjunctiva Clear, EOM Intact HENT: Yes: Atraumatic, Normocephalic Neck: Yes: Supple, Trachea Midline Cardiovascular: Yes: Regular Rate and Rhythm, S1, S2. No: Bradycardia, Tachycardia, Pulse Irregular, Bruit, JVD, Gallop, Murmur, Rub, S3, S4, Varicosities Respiratory: Yes: Regular, CTA Bilaterally. 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 Jaramillo at [facility], orthostatic hypotension now admitted with recurrent falls with L sided back pain. pt seen and examined in the ER in nad. unable to provide a clear history of the events. denies any ICD shocks. denies chest pain, sob, palpitations, pnd, orthopnea, or LE edema. 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 please call with any additional questions.
[2019-04-20 18:29] LABS: EPI CELLS 0.2 /HPF (0-5/HPF); HYALINE CASTS 1 /lpf (0-8); PH,URINE 7.5 (5.0-8.0); URINE APPEARANCE CLEAR; URINE BILIRUBIN NEGATIVE (NEGATIVE); URINE COLOR YELLOW; URINE GLUCOSE (UA) NEGATIVE (NEGATIVE); URINE KETONE TRACE (NEGATIVE); URINE LEUK ESTERASE NEGATIVE (NEGATIVE); URINE NITRITE NEGATIVE (NEGATIVE); URINE PROTEIN NEGATIVE (NEGATIVE); URINE RBC 5 /hpf (0-4); URINE UROBILINOGEN 0.2 mg/dL (0.2-1.0); URINE WBC 0 /hpf (0-5)
--- NOTE | 2019-04-20 20:38 | CONSULT ---
Consult - text type - Consultation Consultation Note: NEUROLOGY CONSULTATION is greatly appreciated: This 62 yo man with myotonic muscular dystrophy is admitted with increasing falls. On: Protonix, colace, tylenol Cardiac history including PPM Noted and appreciated. Required Anglin catheter CK= 215 IU/L MALLORIE: Thin . Scaffoid skull. Frontal balding. Both legs with diffuse chronic scarring NEURO: Mod static encephalopathy. Dysarthric speech B/L Ptosis. Facial diplegia Gag depressed but swallows H2O Diffusely weak. All groups in 3/5 - 4-/5 + Percussion and grasp myotonia Areflexic. IMP: Advanced Myotonic Muscular Dystrophy At this juncture weakness has progressed beyond the point of safe or independent ambulation Doubt whether arm strength will be sufficient for use of a walker. SUGGEST: Check TSH, T4- endocrinopathies are common in Myotonic MD R/O occult infection and Rx if present. PT for walker trial Pt will need wheelchair and SNF level of care. Thank you very much, Harry Frost MD
[2019-04-21] MEDS: DOCUSATE SODIUM 100 MG CAPSULE (FP) PO SCH ×3 (06:05→21:12)
[2019-04-21 06:43] LABS: HEMATOCRIT 37.7 % (35.4-49); HEMOGLOBIN 12.8 GM/dL (11.7-16.9); MCH 30.8 pg (25.7-33.7); MCHC 33.9 g/dl (32.0-35.9); MEAN CELL VOLUME 90.8 fl (80-96); MEAN PLT VOLUME 9.4 fl (7.5-11.1); PLATELET COUNT 199 K/MM3 (134-434); RBC 4.15 M/mm3 (4.00-5.60); WHITE BLOOD COUNT 10.3 K/mm3 (4.0-10.0)
[2019-04-21 07:04] LABS: ALBUMIN 3.2 g/dl (3.4-5.0); BILIRUBIN,TOTAL 0.9 mg/dL (0.2-1); BLOOD UREA NITROGEN 15.7 mg/dL (7-18); CALCIUM 9.3 mg/dL (8.5-10.1); CREATININE 0.5 mg/dL (0.55-1.3); POTASSIUM 3.9 mmol/L (3.5-5.1); TOT PROT 5.8 g/dl (6.4-8.2)
--- NOTE | 2019-04-21 08:39 | CON.GU ---
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 Patient with history of orthostatic hypotension now admitted with recurrent falls. Patient is unable to provide a clear history of the events. Patient has seen a urologist at [place]. He is a poor historian and was unaware of his ellington catheter. 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) Cardio/Vascular: Yes: CHF, Other (aflutter) Psych: Yes: Anxiety Musculoskeletal: Yes: Other (myotoic dystrophy) - Past Surgical History Past Surgical History: Yes: None - Alcohol/Substance Use Hx Alcohol Use: No - Smoking History Smoking history: Never smoked Have you smoked in the past 12 months: No - Social History Usual Living Arrangement: With Spouse Home Medications - Allergies Allergies/Adverse Reactions: Allergies Allergy/AdvReac Type Severity Reaction Status Date / Time No Known Allergies Allergy Verified 12/11/16 09:41 - Home Medications Home Medications: Ambulatory Orders Aspirin [ASA -] 81 mg PO DAILY tab.chew 12/19/16 Docusate Sodium [Colace -] 100 mg PO TID cap 12/19/16 Pantoprazole Sodium [Protonix -] 40 mg PO DAILY tab.ec 12/19/16 Acetaminophen [Tylenol] 650 mg PO PRN 04/20/19 Aspirin [ASA -] 325 mg PO DAILY 04/20/19 Bisacodyl [Dulcolax] 5 mg PO PRN 04/20/19 Physical Exam- Vital Signs: Vital Signs Temperature 98.2 F 04/21/19 05:48 Pulse Rate 75 04/21/19 05:48 Respiratory Rate 16 04/21/19 05:48 Blood Pressure 120/64 04/21/19 05:48 O2 Sat by Pulse Oximetry (%) 95 04/20/19 21:00 Constitutional: Yes: Ashen, Cachectic Eyes: Yes: WNL, Conjunctiva Clear, EOM Intact HENT: Yes: WNL, Atraumatic, Normocephalic Neck: Yes: WNL, Supple, Trachea Midline Respiratory: Yes: Regular Gastrointestinal: Yes: WNL, Normal Bowel Sounds, Soft Renal/: Yes: WNL Kidneys: Yes: WNL Pelvis: Yes: WNL, Bladder Non Palpable Testicles: Yes: WNL Scrotum: Yes: WNL, Spermatocele (ellington catheter draining clear urine) Prostate Exam: Yes: Swollen (2-3 + prostate) Labs: CBC, BMP 04/21/19 06:05 04/21/19 06:05 Assessment/Plan Impression bph urinary retention orthostatic hypotension plan would recommend flomax 0.4 mg daily if cleared by cardiology. if cardiology is not comfortable with flomax given his history of hypotension and falls then a trial of voiding may be given. If he fails the catheter should be replaced and it would be recommended for the patient to follow-up with his urologist as an outpatient.
[2019-04-21] MEDS: ACETAMINOPHEN 325 MG TABLET (FP) PO PRN ×3 (08:52→21:13)
[2019-04-21] MEDS: HEPARIN NA (PORCINE) 5,000 UNITS/ML 1ML VIAL SQ SCH ×2 (09:13→21:13)
[2019-04-21] MEDS: PANTOPRAZOLE 40 MG TABLET PO SCH (09:14)
[2019-04-21] MEDS: ASPIRIN 81 MG CHEWABLE TABLETS PO SCH (09:14)
--- NOTE | 2019-04-21 10:02 | PN ---
Progress Note, Physician Chief Complaint: AWAKE ALERT EVENTS REVIEWED FREQUENT FALLS AND SYNCOPE CARDIOVERSION X MULTIPLE MUSCULAR DYSTROPHY MALNUTRITION - Current Medication List Current Medications: Active Medications Acetaminophen (Tylenol -) 650 mg PO Q4H PRN PRN Reason: HEADACHE Last Admin: 04/21/19 08:52 Dose: 650 mg Aspirin (Asa -) 81 mg PO DAILY [facility] Last Admin: 04/21/19 09:14 Dose: 81 mg Docusate Sodium (Colace -) 100 mg PO TID [facility] Last Admin: 04/21/19 06:05 Dose: 100 mg Heparin Sodium (Porcine) (Heparin -) 5,000 unit SQ BID [facility] Last Admin: 04/21/19 09:13 Dose: 5,000 unit Pantoprazole Sodium (Protonix -) 40 mg PO DAILY [facility] Last Admin: 04/21/19 09:14 Dose: 40 mg - Objective Vital Signs: Vital Signs Temperature 98.2 F 04/21/19 05:48 Pulse Rate 75 04/21/19 05:48 Respiratory Rate 16 04/21/19 05:48 Blood Pressure 120/64 04/21/19 05:48 O2 Sat by Pulse Oximetry (%) 95 04/20/19 21:00 Constitutional: Yes: Mild Distress Cardiovascular: Yes: Pulse Irregular Respiratory: Yes: CTA Bilaterally Gastrointestinal: Yes: Soft Genitourinary: Yes: Anglin Present Musculoskeletal: Yes: Muscle Weakness Extremities: Yes: Deformity Peripheral Pulses WNL: Yes Integumentary: Yes: Pressure Ulcer, Skin Tear, Other Wound/Incision: Yes: Open to air, Reddened (MULTIPLE LEG ULCERS STAGE 1-2), Excoriated, Unapproximated ...Motor Strength: LUE (WEAKNESS), LLE, RUE, RLE Psychiatric: Yes: Other Labs: CBC, BMP 04/21/19 06:05 04/21/19 06:05 INR, PTT INR 1.11 (0.83-1.09) H 04/20/19 06:05 Problem List - Problems (1) Atrial flutter Code(s): I48.92 - UNSPECIFIED ATRIAL FLUTTER (2) Dizziness Code(s): R42 - DIZZINESS AND GIDDINESS (3) Fall Code(s): W19.XXXA - UNSPECIFIED FALL, INITIAL ENCOUNTER Qualifiers: Encounter type: initial encounter Qualified Code(s): W19.XXXA - Unspecified fall, initial encounter (4) Malnutrition Code(s): E46 - UNSPECIFIED PROTEIN-CALORIE MALNUTRITION (5) Near syncope Code(s): R55 - SYNCOPE AND COLLAPSE (6) Atypical chest pain Code(s): R07.89 - OTHER CHEST PAIN Assessment/Plan MONITORED ON TELE NO SIGNIFICANT ALARMAS CARDIOLOGY AND NEUROLOGY WORKUP APPRECIATED WILL NEED TO INCREASE NUTRITION ADDING PROSTAT ALBUMIN 3.2 ENSURE, SHAKES AND PUDDING DIETARY CONSULT. PT EVAL OOB WITH ASSIST SNF PLACEMENT
[2019-04-21] MEDS: AMINO ACIDS/PROTEIN HYDROLYS 30 ML LIQUID.PKT PO SCH (17:28)
[2019-04-22] MEDS: ACETAMINOPHEN 325 MG TABLET (FP) PO PRN ×4 (05:28→21:42)
[2019-04-22] MEDS: DOCUSATE SODIUM 100 MG CAPSULE (FP) PO SCH ×3 (05:28→21:42)
[2019-04-22] MEDS: AMINO ACIDS/PROTEIN HYDROLYS 30 ML LIQUID.PKT PO SCH ×2 (08:34→17:04)
[2019-04-22] MEDS ORDERED: PT OWN MED DRAWER 7, Y5N ONE (09:47)
[2019-04-22] MEDS: MULTIVIT-MINERALS ORAL LIQUID PO SCH (10:08)
[2019-04-22] MEDS: ASPIRIN 81 MG CHEWABLE TABLETS PO SCH (10:08)
[2019-04-22] MEDS: HEPARIN NA (PORCINE) 5,000 UNITS/ML 1ML VIAL SQ SCH ×2 (10:08→21:42)
[2019-04-22] MEDS: PANTOPRAZOLE 40 MG TABLET PO SCH (10:12)
[2019-04-22] MEDS: BACITRACIN 15 GM TUBE TOPICAL OINTMENT TP SCH (10:12)
--- NOTE | 2019-04-22 10:23 | PN ---
Progress Note, Physician Chief Complaint: AWAKE ALERT WEAK WITH POOR APPETITE DENIES FEVER OR CHILLS - Current Medication List Current Medications: Active Medications Acetaminophen (Tylenol -) 650 mg PO Q4H PRN PRN Reason: HEADACHE Last Admin: 04/22/19 10:12 Dose: 650 mg Amino Acids (Prosource No Carb Liquid Pkt) 30 ml PO BID@0800,1730 [facility] Last Admin: 04/22/19 08:34 Dose: 30 ml Aspirin (Asa -) 81 mg PO DAILY [facility] Last Admin: 04/22/19 10:08 Dose: 81 mg Bacitracin (Bacitracin -) 1 applic TP DAILY [facility] Last Admin: 04/22/19 10:12 Dose: 1 applic Docusate Sodium (Colace -) 100 mg PO TID [facility] Last Admin: 04/22/19 05:28 Dose: 100 mg Heparin Sodium (Porcine) (Heparin -) 5,000 unit SQ BID [facility] Last Admin: 04/22/19 10:08 Dose: 5,000 unit Multivitamins/Minerals (Certavite-Antioxidant Liquid) 15 ml PO DAILY [facility] Last Admin: 04/22/19 10:08 Dose: 15 ml Pantoprazole Sodium (Protonix -) 40 mg PO DAILY [facility] Last Admin: 04/22/19 10:12 Dose: 40 mg - Objective Vital Signs: Vital Signs Temperature 97.7 F 04/22/19 10:06 Pulse Rate 69 04/22/19 10:06 Respiratory Rate 18 04/22/19 10:06 Blood Pressure 112/57 L 04/22/19 10:06 O2 Sat by Pulse Oximetry (%) 97 04/21/19 20:58 Constitutional: Yes: Cachectic, Mild Distress Cardiovascular: Yes: Regular Rate and Rhythm Respiratory: Yes: WNL Gastrointestinal: Yes: Soft Genitourinary: Yes: Muñoz Present Musculoskeletal: Yes: Muscle Weakness Integumentary: Yes: Bruising, Erythema, Rash, Skin Tear Wound/Incision: Yes: Open to air, Excoriated Neurological: Yes: Pre-Existing Deficit, Weakness Labs: CBC, BMP 04/21/19 06:05 04/21/19 06:05 INR, PTT INR 1.11 (0.83-1.09) H 04/20/19 06:05 Problem List - Problems (1) Atrial flutter Code(s): I48.92 - UNSPECIFIED ATRIAL FLUTTER (2) Dizziness Code(s): R42 - DIZZINESS AND GIDDINESS (3) Fall Code(s): W19.XXXA - UNSPECIFIED FALL, INITIAL ENCOUNTER Qualifiers: Encounter type: initial encounter Qualified Code(s): W19.XXXA - Unspecified fall, initial encounter (4) Malnutrition Code(s): E46 - UNSPECIFIED PROTEIN-CALORIE MALNUTRITION (5) Near syncope Code(s): R55 - SYNCOPE AND COLLAPSE (6) Atypical chest pain Code(s): R07.89 - OTHER CHEST PAIN Assessment/Plan ADD THYROID LEVELS TO LABS CHECK CMP LFT WAS ELEVATED MUÑOZ FOR RETENTION START FLOMAX MODIFIED BARIUM SWALLOW EVAL FOR DYSPHAGIA OOB TO CHAIR WITH ASSIST WILL NEED SNF
[2019-04-23] MEDS: DOCUSATE SODIUM 100 MG CAPSULE (FP) PO SCH ×4 (05:32→21:33)
[2019-04-23] MEDS: ACETAMINOPHEN 325 MG TABLET (FP) PO PRN (05:32)
[2019-04-23 06:10] LABS: HEMOGLOBIN 11.4 GM/dL (11.7-16.9); MCH 30.8 pg (25.7-33.7); MCHC 33.6 g/dl (32.0-35.9); MEAN CELL VOLUME 91.7 fl (80-96); MEAN PLT VOLUME 9.2 fl (7.5-11.1); PLATELET COUNT 188 K/MM3 (134-434); RBC 3.71 M/mm3 (4.00-5.60); RDW 14.6 % (11.9-15.9); WHITE BLOOD COUNT 5.3 K/mm3 (4.0-10.0)
[2019-04-23 07:02] LABS: ALBUMIN 2.6 g/dl (3.4-5.0); BILIRUBIN,TOTAL 0.8 mg/dL (0.2-1); BLOOD UREA NITROGEN 34.1 mg/dL (7-18); CALCIUM 9.2 mg/dL (8.5-10.1); CREATININE 0.5 mg/dL (0.55-1.3); POTASSIUM 4.8 mmol/L (3.5-5.1); TOT PROT 5.5 g/dl (6.4-8.2)
--- NOTE | 2019-04-23 08:04 | PN ---
Progress Note, Physician Chief Complaint: awake alert denies chest pain or sob still with ellington cath c/o dysphagia - Current Medication List Current Medications: Active Medications Amino Acids (Prosource No Carb Liquid Pkt) 30 ml PO BID@0800,1730 [facility] Last Admin: 04/22/19 17:04 Dose: 30 ml Aspirin (Asa -) 81 mg PO DAILY [facility] Last Admin: 04/22/19 10:08 Dose: 81 mg Bacitracin (Bacitracin -) 1 applic TP DAILY [facility] Last Admin: 04/22/19 10:12 Dose: 1 applic Docusate Sodium (Colace -) 100 mg PO TID [facility] Last Admin: 04/23/19 05:32 Dose: 100 mg Heparin Sodium (Porcine) (Heparin -) 5,000 unit SQ BID [facility] Last Admin: 04/22/19 21:42 Dose: 5,000 unit Multivitamins/Minerals (Certavite-Antioxidant Liquid) 15 ml PO DAILY [facility] Last Admin: 04/22/19 10:08 Dose: 15 ml Pantoprazole Sodium (Protonix -) 40 mg PO DAILY [facility] Last Admin: 04/22/19 10:12 Dose: 40 mg Tamsulosin HCl (Flomax -) 0.4 mg PO DAILY@0830 [facility] - Objective Vital Signs: Vital Signs Temperature 97.7 F 04/23/19 06:00 Pulse Rate 72 04/23/19 06:00 Respiratory Rate 18 04/23/19 06:00 Blood Pressure 110/55 L 04/23/19 06:00 O2 Sat by Pulse Oximetry (%) 95 04/22/19 21:00 Constitutional: Yes: Mild Distress Cardiovascular: Yes: Regular Rate and Rhythm Respiratory: Yes: WNL Gastrointestinal: Yes: WNL Genitourinary: Yes: Ellington Present Musculoskeletal: Yes: Muscle Weakness Edema: No Integumentary: Yes: Rash, Venous Stasis Changes Wound/Incision: Yes: Open to air Neurological: Yes: Pre-Existing Deficit, Unsteady Gait, Weakness ...Motor Strength: LLE, RLE Psychiatric: Yes: Other Labs: CBC, BMP 04/23/19 05:40 04/23/19 05:40 INR, PTT INR 1.11 (0.83-1.09) H 04/20/19 06:05 Problem List - Problems (1) Atrial flutter Code(s): I48.92 - UNSPECIFIED ATRIAL FLUTTER (2) Dizziness Code(s): R42 - DIZZINESS AND GIDDINESS (3) Fall Code(s): W19.XXXA - UNSPECIFIED FALL, INITIAL ENCOUNTER Qualifiers: Encounter type: initial encounter Qualified Code(s): W19.XXXA - Unspecified fall, initial encounter (4) Malnutrition Code(s): E46 - UNSPECIFIED PROTEIN-CALORIE MALNUTRITION (5) Near syncope Code(s): R55 - SYNCOPE AND COLLAPSE (6) Atypical chest pain Code(s): R07.89 - OTHER CHEST PAIN (8) Transaminitis Code(s): R74.0 - NONSPEC ELEV OF LEVELS OF TRANSAMNS & LACTIC ACID DEHYDRGNSE Assessment/Plan TRANSAMINTIS ACUTE CHECK SONO ABDOMEN HEPATITIS PANEL E[place]INGTON KEEP MAINTAINED FLOMAX STARTED WILL MONITOR SWALLOW EVAL/SPEECH CONSULT MODIFIED BARIUM NPO FOR SONO DC TYLENOL
[2019-04-23] MEDS ORDERED: SODIUM CHLORIDE 1,000 ML IV SCH (08:15)
[2019-04-23] MEDS: ASPIRIN 81 MG CHEWABLE TABLETS PO SCH ×2 (10:00→10:45)
[2019-04-23] MEDS: TAMSULOSIN HCL 0.4 MG CAP PO SCH ×2 (10:00→10:45)
[2019-04-23] MEDS: BACITRACIN 15 GM TUBE TOPICAL OINTMENT TP SCH (10:00)
[2019-04-23] MEDS: HEPARIN NA (PORCINE) 5,000 UNITS/ML 1ML VIAL SQ SCH ×2 (10:00→21:28)
[2019-04-23] MEDS: PANTOPRAZOLE 40 MG TABLET PO SCH ×2 (10:00→10:45)
[2019-04-23] MEDS: AMINO ACIDS/PROTEIN HYDROLYS 30 ML LIQUID.PKT PO SCH ×2 (10:00→17:26)
[2019-04-23] MEDS: MULTIVIT-MINERALS ORAL LIQUID PO SCH (10:01)
[2019-04-23] MEDS ORDERED: PT OWN MED DRAWER 7, Y5N ONE (10:01)
--- NOTE | 2019-04-23 10:03 | CONSULT ---
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 NEURO imp: Mod static encephalopathy. Dysarthric speech B/L Ptosis. Facial diplegia Gag depressed but swallows H2O Diffusely weak. All groups in 3/5 - 4-/5 + Percussion and grasp myotonia Areflexic. Pt is weak, c/o dysphagia, poor appetite Selected Entries 04/19/19 04/20/19 04/21/19 20:12 15:00 01:54 Breakfast 50% Lunch 50% Supper 50% Temperature 98.2 F 04/21/19 04/21/19 04/21/19 05:48 10:00 10:13 Breakfast 50% Lunch Supper Temperature 98.2 F 98 F 04/21/19 04/21/19 04/21/19 14:00 18:00 18:10 Breakfast Lunch Supper 50% Temperature 98.3 F 98.4 F 04/21/19 04/22/19 04/22/19 22:00 02:00 06:00 Breakfast Lunch Supper Temperature 98.2 F 97.5 F L 98.3 F 04/22/19 04/22/19 04/22/19 10:06 14:00 18:00 Breakfast Lunch Supper Temperature 97.7 F 98.3 F 98.5 F 04/22/19 04/23/19 04/23/19 22:00 02:00 06:00 Breakfast Lunch Supper Temperature 98.0 F 97.6 F 97.7 F 04/23/19 04/23/19 08:26 09:31 Breakfast NPO Lunch Supper Temperature 97.8 F Laboratory Tests 04/19/19 04/20/19 04/21/19 07:50 06:05 06:05 WBC 8.2 5.0 10.3 H 04/23/19 05:40 WBC 5.3 Pt wasa on reg diet/thin liuquids, now NPO, ab u/s Seen by me 2016- Impression: Pt with bilateral ptosis. Very fast, imprecise speech, possibly baseline. Insight? CT chest 12/12/16 Moderate dilatation of cervical esophagus. No mass. r/o stricture EGD recommended/Complex left lobe thyroid mass. U/S rec. Refused PO trials for me except for water. Pt reports stasis of solids in right side of throat, which may be deferred symptoms from esophageal stasis with suspected stricture. He says he clears his throat and coughs to bring it back out. However, he denies dysphagia,food sticking in chest or vomiting. Pt insists on continuing "regular food". Suspect esophageal , and possibly pharyngeal dysphagia. Pt with dysphagia, insisted on reg diet, with fair tolerance, alternating with liquids. MBS was rec. CT done on previous admission showed esophageal dilatation and a repeat CT chest similarly shows the same dilatation -Dr. Rodriguez from GI evaluated the patient -EGD/Colonoscopy done 12/16 -small nodule in the esophagus, sigmoid shape to esophagus Significant progressive weight loss- 2014- 121lbs 2016 -110lbs present- 2019-71 lbs noted in chart I asked to reweigh him- He is 99 lbs. Pt reports coughing after he eats at home, eats 2 meals, reg diet/thin liquids, daily with weight loss. Per pt, he is not followed by a PMD or neurologist at home, just Mail Room at [facility]. 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) Cardiovascular: Yes: CHF, Other (aflutter) Psych: Yes: Anxiety Musculoskeletal: Yes: Other (myotoic dystrophy) - Past Surgical History Past Surgical History: Yes: None - Smoking History Smoking history: Never smoked Have you smoked in the past 12 months: No - Alcohol/Substance Use Hx Alcohol Use: No History - Admission Reason For Visit: SYNCOPE - Diagnostics X-ray: Report Reviewed CT Scan: Report Reviewed - General Mental Status: Alert and Oriented, Awake and Alert, Able to Follow Commands Attention: Intact Ability to Follow Directions: Good Head/Neck Control: Good - Hearing Hearing: Normal Hearing Aide: No Speech Evaluation - Communication Primary Language: ROMANIAN Communication: Yes: Dysarthria Oral Expression Ability: Yes: Mild Impairment - Speech Production Able to Make Needs Known: Yes: Mildly Impaired Intelligibility: Yes: Mildly Impaired - Speech Characteristics Voice Loudness: Mildly Soft/Quiet Voice Pitch: Yes: Normal Voice Phonatory-based Quality: Yes: Weak, Vocal Wetness Speech Pattern: Impaired Speech Clarity: < 75% Nasal Resonance: Hypernasal Articulation: Yes: Imprecise Voice, Other Observations: Yes: Throat Clearing - Language/Auditory Comprehension Follows: Yes: 2 Stage Simple Commands Observation: Able to respond to yes/no queries: Yes, Yes/No Confusion: No, Comprehends Conversational Speech: Yes - Language/Verbal Expression Functional Communication Status: Yes: Mildly Impaired - Swallow Evaluation/Bedside Assessment Current Nutritional Intake: Regular, Thin Liquids Oral Secretions: Yes: Drooling (weak cough, unable to expectorate secretions, hypernasality, weak swallow) Dentition: Yes: Adequate Facial Symmetry at Rest: Symmetrical Facial Symmetry on Retraction: Symmetrical Jaw Position: Open at Rest Against Resistance Opening: Weak Against Resistance Closing: Weak Pucker Lips: Normal, Weak Smile: Normal, Weak Lingual Movement: Symmetric Lingual Speed of Movement: Normal Lingual Movement Strgth Against Opposition: Reduced Lingual Movement Characteristics: Normal Velopharyngeal Movement: Hypernasality, Reduced Elevation Laryngeal Elevation: Impaired Laryngeal Movement: Able to Palpate, Reduced Excursion, Labored,delay initiation Rate of Intake: WFL Bolus Size: WFL Labial Seal: Impaired Bilaterally Timing of Swallow: Delayed Coughing/Throat Clear: Yes (delayed, extensive weak unprotective cough after 3 oz water test) Change in Voice: Yes (gurgly, wet) Recommendations - Speech Evaluation, Impression/Plan Impression: weak cough, unable to expectorate secretions, hypernasality, weak swallow. Delayed, extensive, weak cough after 3 oz water test. Significant progressive weight loss-. 2015- 121lbs. 2017 -110lbs. present- 2020 weight correction-99 lbs. Oriented but insight seems impaired? Pt likely aspirating, losing weight, would benefit from PEG. - Disposition Discharge to: To be Determined - Dysphagia Impressions/Plan Swallowing Skills: Impaired Dysphagia Impressions: Moderate Impairment, Suspect Aspiration *Silent aspiration: cannot be R/O at bedside Recommendations: Palliative Care (Pt's wishes? PEG?), MBS w Esophagus - Recommendations Diet Consistency: NPO (until mbs) Medication Administration: Crushed with applesauce (whole, in can not be crushed , ihn applesauce)
[2019-04-23] MEDS ORDERED: KETOROLAC TROMETHAMINE 30 MG/1 ML VIAL IVPUSH ONE (15:30)
--- NOTE | 2019-04-23 17:35 | PN ---
Progress Note (short form) - Note Progress Note: ADDENDUM SEVERE PROTEIN MALNUTRITION Problem List - Problems (1) Atrial flutter Code(s): I48.92 - UNSPECIFIED ATRIAL FLUTTER (2) Dizziness Code(s): R42 - DIZZINESS AND GIDDINESS (3) Fall Code(s): W19.XXXA - UNSPECIFIED FALL, INITIAL ENCOUNTER Qualifiers: Encounter type: initial encounter Qualified Code(s): W19.XXXA - Unspecified fall, initial encounter (4) Malnutrition Code(s): E46 - UNSPECIFIED PROTEIN-CALORIE MALNUTRITION (5) Near syncope Code(s): R55 - SYNCOPE AND COLLAPSE (6) Atypical chest pain Code(s): R07.89 - OTHER CHEST PAIN (8) Transaminitis Code(s): R74.0 - NONSPEC ELEV OF LEVELS OF TRANSAMNS & LACTIC ACID DEHYDRGNSE
[2019-04-23] MEDS ORDERED: LIDOCAINE 5% TOPICAL PATCH TP ONE (22:24)
[2019-04-23] MEDS: LIDOCAINE PATCH REMOVAL MC SCH (22:44)
[2019-04-24] MEDS ORDERED: KETOROLAC TROMETHAMINE 30 MG/1 ML VIAL IVPUSH ONE (03:24)
[2019-04-24] MEDS: DOCUSATE SODIUM 100 MG CAPSULE (FP) PO SCH ×3 (06:33→22:28)
[2019-04-24 06:34] LABS: HEMATOCRIT 33.1 % (35.4-49); MCH 30.6 pg (25.7-33.7); MCHC 33.1 g/dl (32.0-35.9); MEAN CELL VOLUME 92.2 fl (80-96); MEAN PLT VOLUME 9.1 fl (7.5-11.1); PLATELET COUNT 193 K/MM3 (134-434); RBC 3.59 M/mm3 (4.00-5.60); RDW 14.3 % (11.9-15.9); WHITE BLOOD COUNT 5.1 K/mm3 (4.0-10.0)
[2019-04-24 07:15] LABS: ALBUMIN 2.8 g/dl (3.4-5.0); BILIRUBIN,TOTAL 0.4 mg/dL (0.2-1); BLOOD UREA NITROGEN 28.1 mg/dL (7-18); CALCIUM 9.4 mg/dL (8.5-10.1); CREATININE 0.5 mg/dL (0.55-1.3); POTASSIUM 4.4 mmol/L (3.5-5.1); TOT PROT 5.3 g/dl (6.4-8.2)
--- NOTE | 2019-04-24 07:59 | DS ---
Physical Examination Vital Signs: Vital Signs Temperature 97.5 F L 04/24/19 06:00 Pulse Rate 77 04/24/19 06:00 Respiratory Rate 18 04/24/19 06:00 Blood Pressure 113/74 04/24/19 06:00 O2 Sat by Pulse Oximetry (%) 95 04/23/19 21:00 Constitutional: Yes: Cachectic Eyes: Yes: WNL HENT: Yes: WNL Neck: Yes: WNL Cardiovascular: Yes: Regular Rate and Rhythm Respiratory: Yes: WNL Gastrointestinal: Yes: Soft Musculoskeletal: Yes: Muscle Weakness Edema: No Peripheral Pulses WNL: Yes Integumentary: Yes: Rash Wound/Incision: Yes: Open to air Neurological: Yes: Pre-Existing Deficit ...Motor Strength: LLE, RLE Labs: CBC, BMP 04/24/19 05:56 04/24/19 05:56 Discharge Summary Problems reviewed: Yes Reason For Visit: SYNCOPE Current Active Problems Atrial flutter (Acute) Dizziness (Acute) Fall (Acute) Malnutrition (Acute) Near syncope (Acute) Transaminitis (Acute) Procedures: Principal: CT SCAN/SONO/MODIFIED BARIUM Hospital Course: ADMITTED FOR WEAKNESS, POOR APPETITE, PROTEIN MALNUTRITION SEVERE, URINE RETENTION IV FLUIDS, MODIFIED BARIUM SWALLOW EVAL, ALL DONE CAN CHANGE DIET TO RECOMMENDATIONS OF SPEECH/SWALLOW SONO ABDOMEN NO ACUTE CHANGES, HEPATITIS PANEL NEGATIVE WILL NEED FURTHER FOLLOW UP OF LFT AND POSSIBLE BONE SCAN IF PERSISTS TO BE HIGH Plan of Treatment: SNF PLACEMENT, NUTRITION NEEDS TO IMPROVE, URINARY RETENTION FOLLOW UP WITH Goals: NUTRITION GOALS ADDRESSED, FOLLOW UP, LFT ELEVATED NEEDS OUTPATIENT FOLLOW UP Condition: Stable - Instructions Diet, Activity, Other Instructions: CHECK LFT'S, ABDOMINAL SONO REVIEWED NO ACUTE CHANGES, HEPATITIS PANEL NEGATIVE NUTRITION PLEASE REVIEWED MODIFIED BARIUM AND SPEECH AND SWALLOW RECOMMENDATIONS CONSULT KEEP MUÑOZ IN Referrals: Donell De Leon MD, [Primary Care Provider] - Disposition: [facility] - Home Medications Comprehensive Discharge Medication List: Ambulatory Orders Aspirin [ASA -] 81 mg PO DAILY tab.chew 12/19/16 Docusate Sodium [Colace -] 100 mg PO TID cap 12/19/16 Pantoprazole Sodium [Protonix -] 40 mg PO DAILY tab.ec 12/19/16 Aspirin [ASA -] 325 mg PO DAILY 04/20/19 Bisacodyl [Dulcolax] 5 mg PO PRN 04/20/19 Amino Acids/Protein Hydrolys [Prosource No Carb Liquid Pkt] 30 ml PO BID@0800, 1730 packet 04/24/19 Bacitracin - [Bacitracin Topical Ointment -] 1 applic TP DAILY tube 04/24/19 Heparin - 5,000 unit SQ BID vial 04/24/19 Ibuprofen 400 mg PO BID PRN #60 tablet 04/24/19 Lidocaine Patch Removal [Lidoderm Patch Removal] 1 each MC DAILY@2200 each 05/10 Multivit-Minerals [Certavite-Antioxidant Liquid] 15 ml PO DAILY cup 04/24/19 Tamsulosin HCl [Flomax -] 0.4 mg PO DAILY@0830 cap.er.24h 04/24/19
[2019-04-24] MEDS ORDERED: PT OWN MED DRAWER 7, Y5N ONE (10:12)
[2019-04-24] MEDS: TAMSULOSIN HCL 0.4 MG CAP PO SCH (10:16)
[2019-04-24] MEDS: HEPARIN NA (PORCINE) 5,000 UNITS/ML 1ML VIAL SQ SCH ×2 (10:16→22:30)
[2019-04-24] MEDS: PANTOPRAZOLE 40 MG TABLET PO SCH (10:16)
[2019-04-24] MEDS: AMINO ACIDS/PROTEIN HYDROLYS 30 ML LIQUID.PKT PO SCH ×2 (10:16→17:30)
[2019-04-24] MEDS: ASPIRIN 81 MG CHEWABLE TABLETS PO SCH (10:16)
[2019-04-24] MEDS: MULTIVIT-MINERALS ORAL LIQUID PO SCH (10:17)
[2019-04-24] MEDS: BACITRACIN 15 GM TUBE TOPICAL OINTMENT TP SCH (10:37)
--- NOTE | 2019-04-24 10:57 | PN ---
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 Pt with limited compliance, impaired insight.
--- NOTE | 2019-04-24 11:28 | PN ---
Progress Note (short form) - Note Progress Note: Discussed interrogation with [employer]. ICD is at EOS and pt is PPM dependent. Will need Gen change prior to discharge. Consulted Dr. Ring, who will clarify if able to be performed here otherwise pt will need to be transferred for gen change.
[2019-04-24 13:27] VITALS: BMI 14.6
--- NOTE | 2019-04-24 16:00 | PN ---
Progress Note (short form) - Note Progress Note: NEEDS PM CHANGE OF BATTERY TUESDAY CANCEL DISCHARGE Problem List - Problems (1) Atrial flutter Code(s): I48.92 - UNSPECIFIED ATRIAL FLUTTER (2) Dizziness Code(s): R42 - DIZZINESS AND GIDDINESS (3) Fall Code(s): W19.XXXA - UNSPECIFIED FALL, INITIAL ENCOUNTER Qualifiers: Encounter type: initial encounter Qualified Code(s): W19.XXXA - Unspecified fall, initial encounter (4) Malnutrition Code(s): E46 - UNSPECIFIED PROTEIN-CALORIE MALNUTRITION (5) Near syncope Code(s): R55 - SYNCOPE AND COLLAPSE (6) Atypical chest pain Code(s): R07.89 - OTHER CHEST PAIN (8) Transaminitis Code(s): R74.0 - NONSPEC ELEV OF LEVELS OF TRANSAMNS & LACTIC ACID DEHYDRGNSE
[2019-04-24] MEDS ORDERED: traMADol HCL 50 MG TABLET PO ONE (17:01)
--- NOTE | 2019-04-24 18:02 | PN ---
Progress Note (short form) - Note Progress Note: GI CONSULT DICTATED
[2019-04-24] MEDS: LIDOCAINE PATCH REMOVAL MC SCH (22:31)
--- NOTE | 2019-04-25 00:37 | CONS ---
DATE OF CONSULTATION: DATE OF DICTATION: 04/24/2019 GASTROINTESTINAL CONSULTATION HISTORY OF PRESENT ILLNESS: The patient is a 63-year-old man with a past medical history of atrial flutter, cardioversion, pacemaker, anxiety, myotonic dystrophy, who is admitted to the hospital with frequent falls. During the course, he was noted to have abnormal liver tests. He denies a history of jaundice, previous history of liver tests, although he states in the remote past he was told he had some abnormal testing of his liver. He does not drink and has not taken any new medications while he was at home or oral supplements. He denies any abdominal pain, nausea, vomiting, hematemesis, melena, hematochezia, change in his stool, color, or caliber. He has not had a recent endoscopic examination. PAST MEDICAL AND SURGICAL HISTORY: As listed in the HPI. ALLERGIES: No known drug allergies. SOCIAL HISTORY: Does not smoke, drink, or use drugs. FAMILY HISTORY: Noncontributory. HOME MEDICATIONS: Include aspirin, Colace and Protonix. REVIEW OF SYSTEMS: As per the HPI. PHYSICAL EXAMINATION: Vital Signs: Temperature 98, pulse 74, blood pressure 107/65, respiratory rate 18. General: In no acute distress. HEENT: Anicteric sclerae. Cardiovascular: S1, S2, regular rate and rhythm. Lungs: Bilaterally clear to auscultation. Abdomen: Soft, nontender. Extremities: Without edema. LABORATORY: White blood cell count 5.1, hemoglobin and hematocrit 11 over 33, MCV 92, platelet count 193. INR 1.1. Sodium 141, potassium 4.4, BUN over creatinine 28 over 0.5, glucose is 92, total bilirubin 0.4, AST 116, ALT 160, alkaline phosphatase 402. On admission on April 20 it was normal, and slowly these numbers have risen over the past couple of days. Troponin is 0.06, cultures are negative. He has not undergone any abdominal imaging, except for an abdominal ultrasound done on April 22, which revealed gallbladder polyps, no evidence of cholelithiasis, bilateral cyst and right nephrolithiasis. No evidence of hepatic pathology. IMPRESSION: Transaminitis, hepatocellular pattern. Maybe secondary to medications. His CK is within normal limits, so I doubt there is an element of rhabdomyolysis with history from falls. Chronic and inherited liver disease should also be excluded at this time. These labs will be ordered. In addition, his liver test should be trended daily while hospitalized if they uptrend, further imaging with a magnetic resonance cholangiopancreatography should be obtained. Avoid hepatotoxic medications. Will follow. DO AICHA LAN/[id number]
[2019-04-25] MEDS: DOCUSATE SODIUM 100 MG CAPSULE (FP) PO SCH ×3 (06:27→22:23)
[2019-04-25 07:40] LABS: ALBUMIN 2.9 g/dl (3.4-5.0); BILIRUBIN,TOTAL 0.6 mg/dL (0.2-1); BLOOD UREA NITROGEN 28.4 mg/dL (7-18); CALCIUM 9.3 mg/dL (8.5-10.1); CREATININE 0.4 mg/dL (0.55-1.3); TOT PROT 5.7 g/dl (6.4-8.2)
--- NOTE | 2019-04-25 07:54 | PN ---
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 CAN NOT HAVE MRI/MRCP CHANGING ORDER TO CT LIVER WITH CONTRAST - Current Medication List Current Medications: Active Medications Amino Acids (Prosource No Carb Liquid Pkt) 30 ml PO BID@0800,1730 [facility] Last Admin: 04/24/19 17:30 Dose: 30 ml Aspirin (Asa -) 81 mg PO DAILY [facility] Last Admin: 04/24/19 10:16 Dose: 81 mg Bacitracin (Bacitracin -) 1 applic TP DAILY [facility] Last Admin: 04/24/19 10:37 Dose: 1 applic Docusate Sodium (Colace -) 100 mg PO TID [facility] Last Admin: 04/25/19 06:27 Dose: Not Given Heparin Sodium (Porcine) (Heparin -) 5,000 unit SQ BID [facility] Last Admin: 04/24/19 22:30 Dose: 5,000 unit Ketorolac Tromethamine (Toradol Injection -) 30 mg IVPUSH Q8H-IV [facility] Stop: 04/30/19 09:59 Lidocaine (Lidoderm Patch -) 1 patch TP DAILY [facility] Miscellaneous (Lidoderm Patch Removal) 1 each MC DAILY@2199 [facility] Last Admin: 04/24/19 22:31 Dose: Not Given Miscellaneous (Lidoderm Patch Removal) 1 each MC DAILY@2199 [facility] Multivitamins/Minerals (Certavite-Antioxidant Liquid) 15 ml PO DAILY [facility] Last Admin: 04/24/19 10:17 Dose: 15 ml Pantoprazole Sodium (Protonix -) 40 mg PO DAILY [facility] Last Admin: 04/24/19 10:16 Dose: 40 mg Tamsulosin HCl (Flomax -) 0.4 mg PO DAILY@0830 [facility] Last Admin: 04/24/19 10:16 Dose: 0.4 mg - Objective Vital Signs: Vital Signs Temperature 97.7 F 04/25/19 06:00 Pulse Rate 72 04/25/19 06:00 Respiratory Rate 16 04/25/19 06:00 Blood Pressure 122/70 04/25/19 06:00 O2 Sat by Pulse Oximetry (%) 96 04/24/19 21:00 Constitutional: Yes: Mild Distress Cardiovascular: Yes: Regular Rate and Rhythm Respiratory: Yes: Diminished Gastrointestinal: Yes: Soft Genitourinary: Yes: Anglin Present Musculoskeletal: Yes: Muscle Weakness Integumentary: Yes: Rash, Venous Stasis Changes Wound/Incision: Yes: Open to air Neurological: Yes: Pre-Existing Deficit ...Motor Strength: LLE, RLE Psychiatric: Yes: Other Labs: CBC, BMP 04/24/19 05:56 04/25/19 06:35 INR, PTT INR 1.11 (0.83-1.09) H 04/20/19 06:05 Problem List - Problems (1) Atrial flutter Code(s): I48.92 - UNSPECIFIED ATRIAL FLUTTER (2) Dizziness Code(s): R42 - DIZZINESS AND GIDDINESS (3) Fall Code(s): W19.XXXA - UNSPECIFIED FALL, INITIAL ENCOUNTER Qualifiers: Encounter type: initial encounter Qualified Code(s): W19.XXXA - Unspecified fall, initial encounter (4) Malnutrition Code(s): E46 - UNSPECIFIED PROTEIN-CALORIE MALNUTRITION (5) Near syncope Code(s): R55 - SYNCOPE AND COLLAPSE (6) Atypical chest pain Code(s): R07.89 - OTHER CHEST PAIN (8) Transaminitis Code(s): R74.0 - NONSPEC ELEV OF LEVELS OF TRANSAMNS & LACTIC ACID DEHYDRGNSE Assessment/Plan CAN NOT HAVE MRCP/MRI WITH PACEMAKER CHANGE TO CT SCAN WITH CONTRAST LIVER/ABDOMEN FOCUS LFT ALK PHOS ELEVATED 600'S HEPATITIS SEROLOGY NO ACUTE CHANGES OTHER GI LABS ORDERED BY DR DENNIS PENDING RESULTS DC ANY LIVER TOXIC MEDS FURNACE DOOR TENDER TOMORROW MEDICALLY CLEARED UNLESS GI FEELS OTHERWISE WILL D/W GI. TORADOL PRN PAIN LIDODERM PATCH XRAYS T/L SPINE R/O LYTIC LESIONS
[2019-04-25] MEDS: TAMSULOSIN HCL 0.4 MG CAP PO SCH (08:24)
[2019-04-25] MEDS ORDERED: PT OWN MED DRAWER 7, Y5N ONE (11:43)
[2019-04-25] MEDS: ASPIRIN 81 MG CHEWABLE TABLETS PO SCH (12:02)
[2019-04-25] MEDS: KETOROLAC TROMETHAMINE 30 MG/1 ML VIAL IVPUSH SCH ×2 (12:03→18:55)
[2019-04-25] MEDS: AMINO ACIDS/PROTEIN HYDROLYS 30 ML LIQUID.PKT PO SCH ×2 (12:04→18:28)
[2019-04-25] MEDS: BACITRACIN 15 GM TUBE TOPICAL OINTMENT TP SCH (12:04)
[2019-04-25] MEDS: PANTOPRAZOLE 40 MG TABLET PO SCH (12:04)
[2019-04-25] MEDS: HEPARIN NA (PORCINE) 5,000 UNITS/ML 1ML VIAL SQ SCH ×2 (12:04→22:23)
[2019-04-25] MEDS: MULTIVIT-MINERALS ORAL LIQUID PO SCH (12:05)
[2019-04-25] MEDS: LIDOCAINE 5% TOPICAL PATCH TP SCH (12:05)
--- NOTE | 2019-04-25 12:36 | PN ---
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 On dys ground ordered. Pt fed himself, all cups empty. MBS reviewed with nursing.
--- NOTE | 2019-04-25 12:58 | PN.GI ---
GI Progress Note Subjective: Pt seen/examined at bedside, feeling better overall, asking for more food, states he eats regular diet at home and denies dysphagia, denies abdominal pain , n/v or fever/chills. Denies prior h/o liver disease. - Objective Vital Signs: Vital Signs Temperature 97.6 F 04/25/19 10:00 Pulse Rate 71 04/25/19 10:00 Respiratory Rate 17 04/25/19 10:00 Blood Pressure 112/64 04/25/19 10:00 O2 Sat by Pulse Oximetry (%) 96 04/24/19 21:00 Constitutional: No Distress, Calm Cardiovascular: Yes: WNL, Regular Rate and Rhythm Respiratory: Yes: WNL, Regular, CTA Bilaterally Labs: CBC, BMP 04/24/19 05:56 04/25/19 06:35 INR, PTT INR 1.11 (0.83-1.09) H 04/20/19 06:05 Problem List - Problems (1) Elevated LFTs Assessment/Plan: 63yo male h/o A flutter s/p PPM, ICD, myotonic dystrophy presenting with recurrent falls with elevated LFTs. Mixed cholestatic/hepatocellular pattern with rising alk phos. Acute hep panel negative. Abd us revealing multiple small GB polyps otherwise no stones or ductal dilation. -Continue to closely monitor LFT trend -Repeat CK -Check GGT -CT abd/pelvis with contrast pending as pt unable to have MRI - await results to r/o obvious biliary pathology -Avoid nonessential hepatotoxic medications -Will also need US surveillance for GB polyps Code(s): R94.5 - ABNORMAL RESULTS OF LIVER FUNCTION STUDIES (2) Dysphagia Assessment/Plan: TURNTABLE OPERATOR note reviewed. Pt denies dysphagia and asking to eat regular food. -Recommend trial on chopped dysphagia diet per TURNTABLE OPERATOR recommendations -Nutrition consult and calorie count -Pending above will determine need for further testing or intervention if needed Code(s): R13.10 - DYSPHAGIA, UNSPECIFIED
[2019-04-25] MEDS ORDERED: SODIUM PHOSPHATE/NA BIPHOS 133 ML ENEMA RC ONE (13:15)
--- NOTE | 2019-04-25 15:18 | PN ---
Progress Note, Physician Chief Complaint: The patient appears comfortable at the time of exam. He reports no chest pain, shortness of breath, palpitation or dizziness. Telemetry reviewed, it showed sinus rhythm at 70s BPM. Intermittent AV pacing. History of Present Illness: 63 year old man with PMHx of myotonic dystrophy, with history of multiple falls in the past, h/o atrial flutter s/p multiple cardioversions in the past, followed by PPM then Medtronic BIV ICD (unknown indication for ICD), followed by Dr. Jaramillo at [facility], orthostatic hypotension admitted with recurrent falls with L sided back pain. Dr. Carlton discussed interrogation with Medtronic. ICD is at EOS and pt is pacing dependent. Dr. Ring was informed and power packet change is scheduled for 04/26/19. Echo 04/20/2019: Normal LV size, wall motion and systolic function. LVEF = 50-55% . Normal RV. Pacer wire in RV. Normal LA and RA in size. No significant valvular abnormalities. - Current Medication List Current Medications: Active Medications Amino Acids (Prosource No Carb Liquid Pkt) 30 ml PO BID@0800,1730 [facility] Last Admin: 04/25/19 12:04 Dose: 30 ml Aspirin (Asa -) 81 mg PO DAILY [facility] Last Admin: 04/25/19 12:02 Dose: 81 mg Bacitracin (Bacitracin -) 1 applic TP DAILY [facility] Last Admin: 04/25/19 12:04 Dose: 1 applic Docusate Sodium (Colace -) 100 mg PO TID [facility] Last Admin: 04/25/19 13:55 Dose: 100 mg Heparin Sodium (Porcine) (Heparin -) 5,000 unit SQ BID [facility] Last Admin: 04/25/19 12:04 Dose: 5,000 unit Ketorolac Tromethamine (Toradol Injection -) 30 mg IVPUSH Q8H-IV [facility] Stop: 04/30/19 09:59 Last Admin: 04/25/19 12:03 Dose: 30 mg Lidocaine (Lidoderm Patch -) 1 patch TP DAILY [facility] Last Admin: 04/25/19 12:05 Dose: 1 patch Miscellaneous (Lidoderm Patch Removal) 1 each MC DAILY@2200 [facility] Multivitamins/Minerals (Certavite-Antioxidant Liquid) 15 ml PO DAILY [facility] Last Admin: 04/25/19 12:05 Dose: 15 ml Pantoprazole Sodium (Protonix -) 40 mg PO DAILY [facility] Last Admin: 04/25/19 12:04 Dose: 40 mg Tamsulosin HCl (Flomax -) 0.4 mg PO DAILY@0830 [facility] Last Admin: 04/25/19 08:24 Dose: 0.4 mg - Objective Vital Signs: Vital Signs Temperature 97.2 F L 04/25/19 14:00 Pulse Rate 73 04/25/19 14:00 Respiratory Rate 16 04/25/19 14:00 Blood Pressure 89/53 L 04/25/19 14:00 O2 Sat by Pulse Oximetry (%) 96 04/24/19 21:00 General: Well developed. Poorly nourished, chronic ill and frail. No acute distress. Head: Normocephalic. Atraumatic, Eyes: PERRLA, EOMI. Sclerae anicteric. Conjunctivae clear. Neck: Supple. No JVD. No bruits. Heart: Normal S1, S2: Regular rhythm and rate. No murmur. No gallop or rub. Lungs: Symmetrical air entry. Clear to auscultation. No crackles. No wheezing or rhonchi. Abdomen: Soft. Bowel sound positive. Non tender. No masses. Extremities: No edema. No clubbing or cyanosis. Labs: CBC, BMP 04/24/19 05:56 04/25/19 06:35 INR, PTT INR 1.11 (0.83-1.09) H 04/20/19 06:05 Assessment/Plan 63 year old man with PMHx of myotonic dystrophy, with history of multiple falls in the past, h/o atrial flutter s/p multiple cardioversions in the past, followed by PPM then Medtronic BIV ICD (unknown indication for ICD), followed by Dr. Jaramillo at [facility], orthostatic hypotension admitted with recurrent falls with L sided back pain. Dr. Carlton discussed interrogation with Medtronic. ICD is at EOS and pt is pacing dependent. Dr. Ring was informed and power packet change is scheduled for 04/26/19. Echo 04/20/2019: Normal LV size, wall motion and systolic function. LVEF = 50-55% . Normal RV. Pacer wire in RV. Normal LA and RA in size. No significant valvular abnormalities. 1) ICD is at end of service (EOS) nd pt is pacing dependent. Dr. Ring was informed and power packet change is scheduled for 04/26/19. 2) Atrial flutter -known h/o with prior cardioversions -not on full AC at home, on ASA -cont ASA if safe to do so -outpatient fup with his laboratory development technician 3) Falls-h/o recurrent falls, unclear that recent falls were syncopal events -not c/w ACS -last echo 04/20/19 showed normal LVEF. -check orthostatic BP -May liberate salt intake and encourage oral hydration.
[2019-04-25] MEDS ORDERED: LIDOCAINE PATCH REMOVAL MC SCH (22:00)
--- NOTE | 2019-04-25 22:56 | CON.CARD ---
Consult Consult Specialty:: Cardiac Electrophysiology Referred by:: Dr. Carlton Reason for Consultation:: ICD pulse generator depletion - History of Present Illness Chief Complaint: frequent falls. ICD pulse generator battery at EOL History of Present Illness: Mr. Faith is a 63 year old male with a pmh of myotonic dystrophy, atrial flutter s/p CTI ablation several years ago, PAF s/p AVN ablation and dual chamber ICD implant, NICM s/p LV lead upgrade with normalization of LVEF, orthostatic hypotension, now found to have ICD at EOL. EP consulted for device pulse generator replacement. Device interrogated, no VT/VF events noted. He has a Biotronik RV ICD lead with Medtronic LV lead. Medtronic pulse generator. His script reader is Dr. Harry Justin but he has not seen him in atleast 5 years. Case d/w Dr. Justin. Patient had a LHC done when his LVEF had reduced and it was negative for obstructive disease. Patient denies any chest pain, dyspnea, palpitations, near or true syncope. No pauses on telemetry. Echo 04/20/2019: Normal LV size, wall motion and systolic function. LVEF = 50-55% . Normal RV. Pacer wire in RV. Normal LA and RA in size. No significant valvular abnormalities. 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: Yes: Other (MD) Cardio/Vascular: Yes: CHF, Other (aflutter) Psych: Yes: Anxiety Musculoskeletal: Yes: Other (myotoic dystrophy) - Past Surgical History Past Surgical History: Yes: None, Permanent Pacemaker (biv icd) - Alcohol/Substance Use Hx Alcohol Use: No - Smoking History Smoking history: Never smoked Have you smoked in the past 12 months: No - Social History Usual Living Arrangement: With Spouse Home Medications - Allergies Allergies/Adverse Reactions: Allergies Allergy/AdvReac Type Severity Reaction Status Date / Time No Known Allergies Allergy Verified 12/11/16 09:41 - Home Medications Home Medications: Ambulatory Orders RX: Aspirin [ASA -] 81 mg PO DAILY tab.chew 12/19/16 RX: Docusate Sodium [Colace -] 100 mg PO TID cap 12/19/16 RX: Pantoprazole Sodium [Protonix -] 40 mg PO DAILY tab.ec 12/19/16 RX: Aspirin [ASA -] 325 mg PO DAILY 04/20/19 RX: Bisacodyl [Dulcolax] 5 mg PO PRN 04/20/19 RX: Amino Acids/Protein Hydrolys [Prosource No Carb Liquid Pkt] 30 ml PO BID@ 0800,1730 packet 04/24/19 RX: Bacitracin - [Bacitracin Topical Ointment -] 1 applic TP DAILY tube RX: Heparin - 5,000 unit SQ BID vial 04/24/19 RX: Ibuprofen 400 mg PO BID PRN #60 tablet 04/24/19 RX: Lidocaine Patch Removal [Lidoderm Patch Removal] 1 each MC DAILY@2200 each 04/24/19 RX: Multivit-Minerals [Certavite-Antioxidant Liquid] 15 ml PO DAILY cup RX: Tamsulosin HCl [Flomax -] 0.4 mg PO DAILY@0830 cap.er.24h 04/24/19 Family Medical History Family History: Denies (known fam hx of scd, mi) Review of Systems - Review of Systems Constitutional: denies: Chills, Fever Cardiovascular: denies: Chest Pain, Palpitations Respiratory: denies: Hemoptysis, Wheezing Gastrointestinal: denies: Abdominal Pain, Nausea Musculoskeletal: reports: Muscle Weakness Neurological: denies: Change in LOC, Dizziness Hematology/Lymphatic: denies: Excessive Bleeding Vital Signs: Vital Signs Temperature 98.3 F 04/25/19 18:00 Pulse Rate 69 04/25/19 18:00 Respiratory Rate 17 04/25/19 18:00 Blood Pressure 91/44 L 04/25/19 18:00 O2 Sat by Pulse Oximetry (%) 99 04/25/19 09:00 Constitutional: Yes: No Distress, Calm Eyes: Yes: EOM Intact HENT: Yes: Atraumatic Respiratory: Yes: Regular, CTA Bilaterally Gastrointestinal: Yes: Normal Bowel Sounds, Soft Cardiovascular: Yes: Regular Rate and Rhythm JVD: No Carotid Bruit: No Heart Sounds: Yes: S1, S2 Musculoskeletal: Yes: Muscle Weakness Edema: No Neurological: Yes: Alert, Oriented Psychiatric: Yes: Alert, Oriented - Other Data Labs, Other Data: CBC, BMP 04/24/19 05:56 04/25/19 06:35 INR, PTT INR 1.11 (0.83-1.09) H 04/20/19 06:05 Echo: Report Reviewed Ejection Fraction %: LVEF > or = 40 % Imaging - Results EKG: Image Reviewed Problem List - Problems (1) NICM (nonischemic cardiomyopathy) Code(s): I42.8 - OTHER CARDIOMYOPATHIES (2) Biventricular AICD generator malfunction Code(s): T82.111A - BREAKDOWN OF CARDIAC PULSE GENERATOR (BATTERY), INIT (3) Atrial flutter Code(s): I48.92 - UNSPECIFIED ATRIAL FLUTTER Assessment/Plan Biventricular ICD at EOL since 03/2018. has not followed with primary script reader since about 5 years. he is pacemaker dependent. no ICD therapies. prior ICD was implanted due to history of myotonic dystrophy. pt is with very low muscle mass and concern is raised about possible access site closure with new ICD. his muscle mass is quite low, likely from myotonic dystrophy, making it difficult to place a sub-pec ICD as well. have discussed case with pt's primary script reader and consideration was given to implant a NETWORK COORDINATOR-P rather than NETWORK COORDINATOR-D due to pt never receiving a shock and the possible risk of pocket extravasation/infection if NETWORK COORDINATOR-D is implanted given relative size differences. for now, the patient has consented to pulse generator replacement and will discuss these scenarios further. also will need to check to see if RV ICD lead is NETWORK COORDINATOR-P compatible. - consent in chart - npo after 6 am tomorrow for pulse generator replacement tomorrow afternoon - keep k 4-4.5, mg 2-2.5 - vancomycin 1 gram ivss x 1 on-call to OR - DEMI IVL - no heparin sq tomorrow - care as per cardiology, primary services Thank you for allowing me to participate in the care of your patient. Please call with any questions. Time spent: 85 minutes. This included time coordinating care, reviewing history , etc.
[2019-04-26] MEDS: KETOROLAC TROMETHAMINE 30 MG/1 ML VIAL IVPUSH SCH ×3 (01:05→17:34)
[2019-04-26] MEDS: DOCUSATE SODIUM 100 MG CAPSULE (FP) PO SCH ×3 (07:33→21:30)
--- NOTE | 2019-04-26 08:14 | PN ---
Progress Note, Physician Chief Complaint: AWAKE ALERT NPO DENIES CHEST PAIN NO N/V - Current Medication List Current Medications: Active Medications Amino Acids (Prosource No Carb Liquid Pkt) 30 ml PO BID@0800,1730 [facility] Last Admin: 04/25/19 18:28 Dose: 30 ml Documented by: Aspirin (Asa -) 81 mg PO DAILY [facility] Last Admin: 04/25/19 12:02 Dose: 81 mg Documented by: Bacitracin (Bacitracin -) 1 applic TP DAILY [facility] Last Admin: 04/25/19 12:04 Dose: 1 applic Documented by: Docusate Sodium (Colace -) 100 mg PO TID [facility] Last Admin: 04/26/19 07:33 Dose: 100 mg Documented by: Heparin Sodium (Porcine) (Heparin -) 5,000 unit SQ BID [facility] Last Admin: 04/25/19 22:23 Dose: 5,000 unit Documented by: Ketorolac Tromethamine (Toradol Injection -) 30 mg IVPUSH Q8H-IV [facility] Stop: 04/30/19 09:59 Last Admin: 04/26/19 01:05 Dose: 30 mg Documented by: Lidocaine (Lidoderm Patch -) 1 patch TP DAILY [facility] Last Admin: 04/25/19 12:05 Dose: 1 patch Documented by: Miscellaneous (Lidoderm Patch Removal) 1 each MC DAILY@2200 [facility] Last Admin: 04/25/19 22:24 Dose: Not Given Documented by: Multivitamins/Minerals (Certavite-Antioxidant Liquid) 15 ml PO DAILY [facility] Last Admin: 04/25/19 12:05 Dose: 15 ml Documented by: Pantoprazole Sodium (Protonix -) 40 mg PO DAILY [facility] Last Admin: 04/25/19 12:04 Dose: 40 mg Documented by: Tamsulosin HCl (Flomax -) 0.4 mg PO DAILY@0830 [facility] Last Admin: 04/25/19 08:24 Dose: 0.4 mg Documented by: - Objective Vital Signs: Vital Signs Temperature 98.3 F 04/26/19 06:00 Pulse Rate 72 04/26/19 06:00 Respiratory Rate 18 04/26/19 06:00 Blood Pressure 102/65 04/26/19 06:00 O2 Sat by Pulse Oximetry (%) 97 04/25/19 21:00 Constitutional: Yes: Cachectic, Mild Distress Cardiovascular: Yes: Pulse Irregular, Other Respiratory: Yes: Diminished Gastrointestinal: Yes: Soft Genitourinary: Yes: Anglin Present Musculoskeletal: Yes: Muscle Weakness Integumentary: Yes: Rash, Venous Stasis Changes Neurological: Yes: Pre-Existing Deficit, Weakness Labs: CBC, BMP 04/24/19 05:56 04/25/19 06:35 INR, PTT INR 1.11 (0.83-1.09) H 04/20/19 06:05 Problem List - Problems (1) Atrial flutter Code(s): I48.92 - UNSPECIFIED ATRIAL FLUTTER (2) Dizziness Code(s): R42 - DIZZINESS AND GIDDINESS (3) Fall Code(s): W19.XXXA - UNSPECIFIED FALL, INITIAL ENCOUNTER Qualifiers: Encounter type: initial encounter Qualified Code(s): W19.XXXA - Unspecified fall, initial encounter (4) Malnutrition Code(s): E46 - UNSPECIFIED PROTEIN-CALORIE MALNUTRITION (5) Near syncope Code(s): R55 - SYNCOPE AND COLLAPSE (6) Atypical chest pain Code(s): R07.89 - OTHER CHEST PAIN (8) Transaminitis Code(s): R74.0 - NONSPEC ELEV OF LEVELS OF TRANSAMNS & LACTIC ACID DEHYDRGNSE Assessment/Plan ABDOMINAL XRAY ORDERED TO FOLLOW IF BARIUM IS RELEASED FROM GI TRACT PRIOR TO CT SCAN OF LIVER WITH CONTRAST. CLINICAL INFORMATICIST MEDICALLY CLEARED FOR BATTER CHANGE TRANSAMINITS UNCLEAR ETIOLOGY GI FOLLOW UP APPRECIATED THYROBLOBULIN ELEVATED HOWEVER TST/FT4 NORMAL ENDOCRINE F/U PAIN CONTROL BACK PAIN XRAYS DO NOT SHOW LYTIC LESIONS
[2019-04-26] MEDS: AMINO ACIDS/PROTEIN HYDROLYS 30 ML LIQUID.PKT PO SCH ×2 (08:34→16:50)
[2019-04-26] MEDS: TAMSULOSIN HCL 0.4 MG CAP PO SCH (08:34)
[2019-04-26] MEDS ORDERED: SODIUM PHOSPHATE/NA BIPHOS 133 ML ENEMA RC ONE (10:38)
[2019-04-26] MEDS: MULTIVIT-MINERALS ORAL LIQUID PO SCH (11:04)
[2019-04-26] MEDS: HEPARIN NA (PORCINE) 5,000 UNITS/ML 1ML VIAL SQ SCH (11:04)
[2019-04-26] MEDS: BACITRACIN 15 GM TUBE TOPICAL OINTMENT TP SCH (11:04)
[2019-04-26] MEDS: ASPIRIN 81 MG CHEWABLE TABLETS PO SCH (11:05)
[2019-04-26] MEDS: PANTOPRAZOLE 40 MG TABLET PO SCH (11:05)
[2019-04-26] MEDS: LIDOCAINE 5% TOPICAL PATCH TP SCH (11:17)
[2019-04-26] MEDS ORDERED: SODIUM CHLORIDE 1,000 ML IV SCH (12:00)
[2019-04-26 15:07] LABS: TRANSGLUTAMINASE IGA < 2 U/mL (0-3); TRANSGLUTAMINASE IGG < 2 U/mL (0-5)
--- NOTE | 2019-04-26 15:28 | PN ---
Progress Note, Physician Chief Complaint: The patient appears comfortable at the time of exam. He reports no chest pain, shortness of breath, palpitation or dizziness. Telemetry reviewed, it showed sinus rhythm at 70s BPM. Intermittent AV pacing. History of Present Illness: 63 year old man with PMHx of myotonic dystrophy, with history of multiple falls in the past, h/o atrial flutter s/p multiple cardioversions in the past, followed by PPM then Medtronic BIV ICD (unknown indication for ICD), followed by Dr. Jaramillo at [facility], orthostatic hypotension admitted with recurrent falls with L sided back pain. Dr. Cartlon discussed interrogation with Medtronic. ICD is at EOS and pt is pacing dependent. Dr. Ring's extensive evaluation appreciated. Power packet change is scheduled for this evening. Echo 04/20/2019: Normal LV size, wall motion and systolic function. LVEF = 50- 55%. Normal RV. Pacer wire in RV. Normal LA and RA in size. No significant valvular abnormalities. - Current Medication List Current Medications: Active Medications Amino Acids (Prosource No Carb Liquid Pkt) 30 ml PO BID@0800,1730 [facility] Last Admin: 04/26/19 08:34 Dose: Not Given Documented by: Aspirin (Asa -) 81 mg PO DAILY [facility] Last Admin: 04/26/19 11:05 Dose: Not Given Documented by: Bacitracin (Bacitracin -) 1 applic TP DAILY [facility] Last Admin: 04/26/19 11:04 Dose: 1 applic Documented by: Docusate Sodium (Colace -) 100 mg PO TID [facility] Last Admin: 04/26/19 13:36 Dose: Not Given Documented by: Heparin Sodium (Porcine) (Heparin -) 5,000 unit SQ BID [facility] Last Admin: 04/26/19 11:04 Dose: Not Given Documented by: Sodium Chloride (Normal Saline -) 1,000 mls @ 100 mls/hr IV ASDIR [facility] Last Admin: 04/26/19 12:20 Dose: 100 mls/hr Documented by: Ketorolac Tromethamine (Toradol Injection -) 30 mg IVPUSH Q8H-IV [facility] Stop: 04/30/19 09:59 Last Admin: 04/26/19 11:16 Dose: 30 mg Documented by: Lidocaine (Lidoderm Patch -) 1 patch TP DAILY [facility] Last Admin: 04/26/19 11:17 Dose: 1 patch Documented by: Miscellaneous (Lidoderm Patch Removal) 1 each MC DAILY@2200 [facility] Last Admin: 04/25/19 22:24 Dose: Not Given Documented by: Multivitamins/Minerals (Certavite-Antioxidant Liquid) 15 ml PO DAILY [facility] Last Admin: 04/26/19 11:04 Dose: Not Given Documented by: Pantoprazole Sodium (Protonix -) 40 mg PO DAILY [facility] Last Admin: 04/26/19 11:05 Dose: Not Given Documented by: Tamsulosin HCl (Flomax -) 0.4 mg PO DAILY@0830 [facility] Last Admin: 04/26/19 08:34 Dose: Not Given Documented by: - Objective Vital Signs: Vital Signs Temperature 97.9 F 04/26/19 08:29 Pulse Rate 74 04/26/19 08:29 Respiratory Rate 16 04/26/19 08:29 Blood Pressure 100/56 L 04/26/19 08:29 O2 Sat by Pulse Oximetry (%) 95 04/26/19 10:00 General: Well developed. Poorly nourished, chronic ill and frail. No acute distress. Head: Normocephalic. Atraumatic, Eyes: PERRLA, EOMI. Sclerae anicteric. Conjunctivae clear. Neck: Supple. No JVD. No bruits. Heart: Normal S1, S2: Regular rhythm and rate. No murmur. No gallop or rub. Lungs: Symmetrical air entry. Clear to auscultation. No crackles. No wheezing or rhonchi. Abdomen: Soft. Bowel sound positive. Non tender. No masses. Extremities: Sarcopenia. No edema. No clubbing or cyanosis. PD 2+, equal bilaterally. Neuro: Intact, no focal findings. AAO X3. Labs: CBC, BMP 04/24/19 05:56 04/25/19 06:35 INR, PTT INR 1.11 (0.83-1.09) H 04/20/19 06:05 Assessment/Plan 63 year old man with PMHx of myotonic dystrophy, with history of multiple falls in the past, h/o atrial flutter s/p multiple cardioversions in the past, f ollowed by PPM then Medtronic BIV ICD (unknown indication for ICD), followed by Dr. Jaramillo at [facility], orthostatic hypotension admitted with recurrent falls with L sided back pain. Dr. Carlton discussed interrogation with [employer]. ICD is at EOS and pt is pacing dependent. Echo 04/20/2019: Normal LV size, wall motion and systolic function. LVEF = 50- 55%. Normal RV. Pacer wire in RV. Normal LA and RA in size. No significant valvular abnormalities. 1) ICD is at end of service (EOS) nd pt is pacing dependent. Dr. Ring's extensive evaluation appreciated. Power packet change is scheduled for 04/26/19. I spoke with the patient in length. He expresses that he does not want to be shocked. The benefits of changing it to VENUE ATTENDANT-P overweigh the risks of VENUE ATTENDANT-D due to patient current condition and severe sarcopenia. 2) Atrial flutter -known h/o with prior cardioversions -not on full AC at home, on ASA -cont ASA if safe to do so -outpatient fup with his childbirth educator 3) Falls-h/o recurrent falls, unclear that recent falls were syncopal events -not c/w ACS -last echo 04/20/19 showed normal LVEF. -check orthostatic BP -May liberate salt intake and encourage oral hydration.
[2019-04-26] MEDS ORDERED: LIDOCAINE HCL 1%, 10 MG/ML (20ML VIAL) ONE (15:57)
--- NOTE | 2019-04-26 15:57 | PN ---
Progress Note, SALES AND LEASING CONSULTANT - Note Progress Note: Selected Entries 04/25/19 04/25/19 04/25/19 01:45 06:00 10:00 Breakfast Lunch Supper Temperature 97.3 F L 97.7 F 97.6 F 04/25/19 04/25/19 04/25/19 14:00 18:00 21:49 Breakfast 75% Lunch 75% Supper 50% Temperature 97.2 F L 98.3 F 04/25/19 04/26/19 04/26/19 22:00 02:00 06:00 Breakfast Lunch Supper Temperature 98.5 F 98 F 98.3 F 04/26/19 08:29 Breakfast Lunch Supper Temperature 97.9 F Laboratory Tests 04/24/19 04/25/19 05:56 06:35 WBC 5.1 Sodium 143 Tolerating diet, asking for reg food.Based on mbs, stasis of Puree in pharynx and impaired esophageal emptying. Less coughing on modified diet, noted when he admitted? npo for pacemaker today,
[2019-04-26] MEDS ORDERED: PROPOFOL 20 ML ONE (16:07)
[2019-04-26] MEDS ORDERED: SUCCINYLCHOLINE CHLORIDE 200 MG/10 ML SYRINGE ONE (16:08)
[2019-04-26] MEDS ORDERED: MIDAZOLAM HCL 2 MG/2 ML SINGLE DOSE VIAL ONE (16:08)
[2019-04-26] MEDS ORDERED: ROCURONIUM BROMIDE 50 MG/5 ML SYRINGE ONE (16:08)
[2019-04-26] MEDS ORDERED: VANCOMYCIN 1,000 MG VIAL (RESTRICTED TO ID ONLY) ONE (16:19)
[2019-04-26] MEDS ORDERED: VANCOMYCIN 1,000 MG VIAL (RESTRICTED TO ID ONLY) IVPB ONE (16:40)
[2019-04-26] MEDS ORDERED: LIDOCAINE HCL 1%, 10 MG/ML (20ML VIAL) NR ONE (17:15)
[2019-04-26] MEDS ORDERED: BACITRACIN 50,000 UNITS VIAL TP ONE (17:30)
--- NOTE | 2019-04-26 17:57 | OP ---
Operative Note - Note: Operative Date: 04/26/19 Pre-Operative Diagnosis: biv icd pulse generator depletion Operation: Biv PPM pulse generator replacement Implants: Medtronic OLD TESTAMENT PROFESSOR-P Pulse generator Post-Operative Diagnosis: Same as Pre-op Surgeon: Andrae Ring V House Principal: Jason Shukla Anesthesiologist/BLUE LINE TRIMMER: Lawrence Gillespie Anesthesia: MAC Estimated Blood Loss (mls): 5 Operative Report Dictated: Yes
--- NOTE | 2019-04-26 18:09 | SURG ---
Surgery Mill Machinist Note Mill Machinist: Jason Shukla PA-C Date of Service: 04/26/19 Diagnosis: biv icd pulse generator depletion Procedure: Biv PPM pulse generator replacement I was present for the entirety of the operative procedure. For further detail, please refer to operative report. Visit type - Case Type Case Type: ED Admission - New patient This patient is new to me today: Yes Date on this admission: 04/26/19
--- NOTE | 2019-04-26 18:10 | PN ---
Progress Note (short form) - Note Progress Note: 63 yo male with biv icd pulse generator depletion. In need of device exchange. Patient was offered a defibrilator vs. just a PPM. Patient declined the defibrilator and was adamant about just a PPM. Again, risks, benefits, alternative were discussed with by me and reiterated by Dr. Ring at bedside. Patient was firm in his choice with regards to just the PPM and expressed a desire to proceed with the procedure.
[2019-04-26] MEDS: SODIUM CHLORIDE 1,000 ML IV SCH ×2 (19:30→20:15)
--- NOTE | 2019-04-26 20:06 | PN.GI ---
GI Progress Note Subjective: S/P PPM battery change. Seen in PACU Resting - Objective Vital Signs: Vital Signs Temperature 98.8 F 04/26/19 17:57 Pulse Rate 72 04/26/19 19:15 Respiratory Rate 13 04/26/19 19:15 Blood Pressure 122/55 L 04/26/19 19:15 O2 Sat by Pulse Oximetry (%) 99 04/26/19 19:15 Constitutional: Calm Eyes: No: Sclera Icterus Cardiovascular: Yes: Regular Rate and Rhythm Respiratory: Yes: Diminished (at bases with poor insp effort) Gastrointestinal Inspection: No: Distention ...Auscultate: Yes: Normoactive Bowel Sounds ...Palpate: Yes: Soft. No: Hepatomegaly, Splenomegaly, Tenderness ...Percussion: No: Tympanitic Edema: No (No LE edema) Neurological: Yes: Other (Somnolent) Labs: CBC, BMP 04/24/19 05:56 04/25/19 06:35 INR, PTT INR 1.11 (0.83-1.09) H 04/20/19 06:05 Laboratory Tests 04/25/19 04/26/19 04/26/19 06:35 05:44 05:44 Total Bilirubin 0.6 GGT 928 H AST 143 H ALT 213 H Alkaline Phosphatase 684 H Creatine Kinase 56 Problem List - Problems (1) Elevated LFTs Assessment/Plan: Asymptomatic In review of [facility], chronic elevations of ALP / transaminases intermittently. ? if he has been getting evaluated for this aside from when he is hospitalized. ? if cardiogenic in nature with component of passive congestion Fasting iron studies Awaiting CT scan A/P Avoid hepatotoxic agents Monitor LFTs Code(s): R94.5 - ABNORMAL RESULTS OF LIVER FUNCTION STUDIES
[2019-04-26] MEDS: LIDOCAINE PATCH REMOVAL MC SCH (21:31)
[2019-04-26] MEDS ORDERED: LIDOCAINE PATCH REMOVAL MC SCH (22:00)
--- NOTE | 2019-04-26 23:08 | CONSULT ---
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 he states he lives with his and daughter. he doesnt use any canes or walkers. only medication he takes daily is asa 325, he denies hitting his head. he denies chest pains, he has difficulty swallowing food especially pills, feels welling around neck.found to have thyroid nodule left lobe on ct neck. 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: Other (MD) Cardio/Vascular: Yes: CHF, Other (aflutter) Psych: Yes: Anxiety Musculoskeletal: Yes: Other (myotoic dystrophy) - Past Surgical History Past Surgical History: Yes: None, Permanent Pacemaker (biv icd) - Alcohol/Substance Use Hx Alcohol Use: No - Smoking History Smoking history: Never smoked Have you smoked in the past 12 months: No - Social History Usual Living Arrangement: With Spouse Home Medications - Allergies Allergies/Adverse Reactions: Allergies Allergy/AdvReac Type Severity Reaction Status Date / Time No Known Allergies Allergy Verified 12/11/16 09:41 - Home Medications Home Medications: Ambulatory Orders Aspirin [ASA -] 81 mg PO DAILY tab.chew 12/19/16 Docusate Sodium [Colace -] 100 mg PO TID cap 12/19/16 Pantoprazole Sodium [Protonix -] 40 mg PO DAILY tab.ec 12/19/16 Aspirin [ASA -] 325 mg PO DAILY 04/20/19 Bisacodyl [Dulcolax] 5 mg PO PRN 04/20/19 Amino Acids/Protein Hydrolys [Prosource No Carb Liquid Pkt] 30 ml PO BID@0800, 1730 packet 04/24/19 Bacitracin - [Bacitracin Topical Ointment -] 1 applic TP DAILY tube 04/24/19 Heparin - 5,000 unit SQ BID vial 04/24/19 Ibuprofen 400 mg PO BID PRN #60 tablet 04/24/19 Lidocaine Patch Removal [Lidoderm Patch Removal] 1 each MC DAILY@2200 each 04/24/19 Multivit-Minerals [Certavite-Antioxidant Liquid] 15 ml PO DAILY cup 04/24/19 Tamsulosin HCl [Flomax -] 0.4 mg PO DAILY@0830 cap.er.24h 04/24/19 Review of Systems - Review of Systems Constitutional: reports: Lethargy, Loss of Appetite Eyes: reports: No Symptoms HENT: reports: Difficult Swallowing Neck: reports: Swollen Glands Cardiovascular: reports: Palpitations Respiratory: reports: Exercise Intolerance, SOB, SOB on Exertion Gastrointestinal: reports: Bloating, Constipation Genitourinary: reports: No Symptoms Breasts: reports: No Symptoms Reported Musculoskeletal: reports: Muscle Weakness Neurological: reports: Incoordination, Numbness, Unsteady Gait, Weakness Endocrine: reports: Unexplained Weight Loss Physical Exam Vital Signs: Vital Signs Temperature 97.9 F 04/26/19 19:30 Pulse Rate 70 04/26/19 19:30 Respiratory Rate 20 04/26/19 19:30 Blood Pressure 105/70 04/26/19 19:30 O2 Sat by Pulse Oximetry (%) 96 04/26/19 19:30 Constitutional: Yes: Calm Eyes: Yes: EOM Intact HENT: Yes: Normocephalic Neck: Yes: Trachea Midline Cardiovascular: Yes: Regular Rate and Rhythm Respiratory: Yes: CTA Bilaterally Gastrointestinal: Yes: Normal Bowel Sounds ...Rectal Exam: Yes: Deferred Renal/: Yes: WNL Breast(s): Yes: WNL Musculoskeletal: Yes: Muscle Weakness Edema: No Neurological: Yes: Alert, Oriented Labs: CBC, BMP 04/24/19 05:56 04/25/19 06:35 Problem List - Problems (1) Thyroid nodule, uninodular Problems reviewed: Yes Code(s): E04.1 - NONTOXIC SINGLE THYROID NODULE (2) Atrial flutter Problems reviewed: Yes Code(s): I48.92 - UNSPECIFIED ATRIAL FLUTTER (3) Biventricular AICD generator malfunction Problems reviewed: Yes Code(s): T82.111A - BREAKDOWN OF CARDIAC PULSE GENERATOR (BATTERY), INIT (4) Elevated LFTs Problems reviewed: Yes Code(s): R94.5 - ABNORMAL RESULTS OF LIVER FUNCTION STUDIES (5) Fall Code(s): W19.XXXA - UNSPECIFIED FALL, INITIAL ENCOUNTER Qualifiers: Encounter type: initial encounter Qualified Code(s): W19.XXXA - Unspecified fall, initial encounter (6) Malnutrition Code(s): E46 - UNSPECIFIED PROTEIN-CALORIE MALNUTRITION Assessment/Plan Current Active Problems thyroid nodule left lobe mass seen on ct neck and palbable Atrial flutter (Acute) Biventricular AICD generator malfunction (Acute) Dizziness (Acute) Elevated LFTs (Acute) Fall (Acute) Malnutrition (Acute) NICM (nonischemic cardiomyopathy) (Acute) Near syncope (Acute) Transaminitis (Acute) Laboratory Results - last 24 hr 04/24/19 04/25/19 04/25/19 20:50 06:35 06:35 GGT Creatine Kinase Smooth Musc &DIRECTOR OF MUSIC Intrp 3 Tiss Transglutamin IgG < 2 Tiss Transglutamin IgA < 2 Hep A IgM Ab Confirm Negative Hep Bs Antigen Negative Hep B Core IgM Ab Negative Hepatitis C Ab (EIA) <0.1 04/26/19 04/26/19 05:44 05:44 GGT 928 H Creatine Kinase 56 Smooth Musc &DIRECTOR OF MUSIC Intrp Tiss Transglutamin IgG Tiss Transglutamin IgA Hep A IgM Ab Confirm Hep Bs Antigen Hep B Core IgM Ab Hepatitis C Ab (EIA) Laboratory Tests 04/23/19 04/25/19 04/26/19 05:40 06:35 05:44 BUN 28.4 H Creatinine 0.4 L Est GFR (CKD-EPI)AfAm 144.46 Est GFR (CKD-EPI)NonAf 124.64 Total Bilirubin 0.6 GGT 928 H AST 143 H ALT 213 H Alkaline Phosphatase 684 H Creatine Kinase Total Protein 5.7 L Albumin 2.9 L Thyroglobulin (ALYSE) 145.6 H Thyroglobulin Antibody <1.0 04/26/19 05:44 BUN Creatinine Est GFR (CKD-EPI)AfAm Est GFR (CKD-EPI)NonAf Total Bilirubin GGT AST ALT Alkaline Phosphatase Creatine Kinase 56 Total Protein Albumin Thyroglobulin (ALYSE) Thyroglobulin Antibody Laboratory Tests 04/23/19 04/23/19 05:40 05:40 TSH 1.05 D Free T4 1.15 Thyroglobulin (ALYSE) 145.6 H plan thyroid nodule left lobe ent consult will need fna consult
--- NOTE | 2019-04-26 23:27 | PN ---
Progress Note, Physician History of Present Illness: Mr. Faith is a 63 year old male with a pmh of myotonic dystrophy, atrial flutter s/p CTI ablation several years ago, PAF s/p AVN ablation and dual chamber ICD implant, NICM s/p LV lead upgrade with normalization of LVEF, orthostatic hypotension, now found to have ICD at EOL. EP consulted for device pulse generator replacement. Device interrogated, no VT/VF events noted. He has a Biotronik RV ICD lead with Medtronic LV lead. Medtronic pulse generator. His enrollment management director is Dr. Harry Justin but he has not seen him in atleast 5 years. Case d/w Dr. Justin. Patient had a LHC done when his LVEF had reduced and it was negative for obstructive disease. Patient denies any chest pain, dyspnea, palpitations, near or true syncope. No pauses on telemetry. Echo 04/20/2019: Normal LV size, wall motion and systolic function. LVEF = 50- 55%. Normal RV. Pacer wire in RV. Normal LA and RA in size. No significant valvular abnormalities. - Current Medication List Current Medications: Active Medications Amino Acids (Prosource No Carb Liquid Pkt) 30 ml PO BID@0800,1730 [facility] Aspirin (Asa -) 81 mg PO DAILY [facility] Bacitracin (Bacitracin -) 1 applic TP DAILY [facility] Docusate Sodium (Colace -) 100 mg PO TID [facility] Last Admin: 04/26/19 21:30 Dose: Not Given Documented by: Sodium Chloride (Normal Saline -) 1,000 mls @ 100 mls/hr IV ASDIR [facility] Last Admin: 04/26/19 20:15 Dose: Not Given Documented by: Ketorolac Tromethamine (Toradol Injection -) 30 mg IVPUSH Q8H-IV [facility] Stop: 04/30/19 09:59 Lidocaine (Lidoderm Patch -) 1 patch TP DAILY [facility] Miscellaneous (Lidoderm Patch Removal) 1 each MC DAILY@2200 [facility] Last Admin: 04/26/19 21:31 Dose: 1 each Documented by: Multivitamins/Minerals (Certavite-Antioxidant Liquid) 15 ml PO DAILY [facility] Pantoprazole Sodium (Protonix -) 40 mg PO DAILY [facility] Tamsulosin HCl (Flomax -) 0.4 mg PO DAILY@0830 [facility] - Objective Vital Signs: Vital Signs Temperature 97.9 F 04/26/19 19:30 Pulse Rate 70 04/26/19 19:30 Respiratory Rate 20 04/26/19 19:30 Blood Pressure 105/70 04/26/19 19:30 O2 Sat by Pulse Oximetry (%) 96 04/26/19 19:30 Constitutional: Yes: No Distress, Calm HENT: Yes: Atraumatic Neck: Yes: Supple Cardiovascular: Yes: Regular Rate and Rhythm Respiratory: Yes: Regular, CTA Bilaterally Gastrointestinal: Yes: Normal Bowel Sounds, Soft Musculoskeletal: Yes: Muscle Weakness Edema: No Neurological: Yes: Alert, Oriented Psychiatric: Yes: Alert, Oriented Labs: CBC, BMP 04/24/19 05:56 04/25/19 06:35 INR, PTT INR 1.11 (0.83-1.09) H 04/20/19 06:05 - ....Imaging Chest X-ray: Image Reviewed Problem List - Problems (1) NICM (nonischemic cardiomyopathy) Code(s): I42.8 - OTHER CARDIOMYOPATHIES (2) Biventricular AICD generator malfunction Code(s): T82.111A - BREAKDOWN OF CARDIAC PULSE GENERATOR (BATTERY), INIT (3) Atrial flutter Code(s): I48.92 - UNSPECIFIED ATRIAL FLUTTER Assessment/Plan Biventricular ICD at EOL since 03/2018. has not followed with primary enrollment management director since about 5 years. he is pacemaker dependent. no ICD therapies. prior ICD was implanted due to history of myotonic dystrophy. pt is with very low muscle mass and concern is raised about possible access site closure with new ICD. his muscle mass is quite low, likely from myotonic dystrophy, making it difficult to place a sub-pec ICD as well. have discussed case with pt's primary enrollment management director and consideration was given to implant a MONUMENT STONECUTTER-P rather than MONUMENT STONECUTTER-D due to pt never receiving a shock and the possible risk of pocket extravasation/infection if MONUMENT STONECUTTER-D is implanted given relative size differences. this has all been discussed with the patient at great length by myself and Dr. Wilson. The patient declines consideration for ICD at this time and wishes to have his device pulse generator changed for a pacemaker MONUMENT STONECUTTER-P pulse generator. he understands the risk for sudden cardiac given his myotonic dystrophy but continues to decline ICD generator implant, understanding the risks of , and wishes to proceed with pacemaker MONUMENT STONECUTTER-P generator change. leads are compatible. case has been d/w pt's primary enrollment management director, Dr. Harry Justin, and hospital enrollment management director, Dr. Wilson, who are all in agreement with the plan. - consent in chart - pt remains npo - keep k 4-4.5, mg 2-2.5 - vancomycin 1 gram ivss x 1 on-call to OR - LUE IVL - no heparin sq has been given - care as per cardiology, primary services - pulse generator change today for ppm MONUMENT STONECUTTER-P
--- NOTE | 2019-04-26 23:54 | OP ---
DATE OF OPERATION: 04/26/2019 PROCEDURE: Biventricular pacemaker pulse generator replacement. SURGEON: Lorenzo Ring MD. ANESTHESIOLOGIST: Lawrence Gillespie DO. ASSISTING PA: EMILY Eduardo. COMPLICATIONS: No complications. ESTIMATED BLOOD LOSS: Minimal blood loss. INDICATION: A 63-year-old male with past medical history of myotonic dystrophy, status post dual-chamber ICD, atrial flutter status post ablation, paroxysmal atrial fibrillation status post AV node ablation, declining anticoagulation, Nonischemic cardiomyopathy status post biventricular ICD upgrade, status post recovery of LVEF to 55%, lost to followup with primary pinking machine operator, who presented with imbalance, found to have device at end of service, here for pulse generator replacement. The patient had elected to undergo replacement to a biventricular pacemaker rather than an ICD, understanding the risk/benefits, including the risk of sudden cardiac . The patient met standard criteria for pulse generator replacement. Informed consent was obtained. Adequate time for questions and answers were offered to the patient prior to the procedure. DESCRIPTION OF PROCEDURE: The procedure was performed during continuous ECG monitoring and with both oxygen saturation and exhaled CO2 content monitored continuously. Following administration of local anesthesia, an incision was made over the area of a prior scar using care to avoid injury to prior device or leads. Using a combination of both blunt and sharp dissection with careful attention to hemostasis, the pulse generator was exposed and removed from the pocket. The pocket was carefully examined and showed no evidence of infection. Using a device wrench, the pulse generator was disconnected from the defibrillator leads. The LV lead was positioned for adequate unipolar pacing while the RV lead was switched to the new generator. All sponges were removed, and the wound was irrigated with antibiotic solution. Pacemaker pulse generator was then connected to the proximal portion of the leads, and after confirming the adequacy the electric connection, the device was placed in the pocket. The RV shocking coil lead was capped. The incision was then closed in layers using absorbable sutures. Dermabond and Steri-Strips were applied. A sterile bandage was applied. Proper device function was confirmed, and the patient was transferred to the postprocedure monitoring area for additional observation. Final device settings were as follows: Medtronic Percepta VEGETABLE FARMWORKER-P [id number] Bi-V pacemaker; serial number [id number]; implanted April 26, 2019. DDD 60 to 130 beats per minute. Paced AV 130 ms. Sensed AV 100 ms. The atrial lead was an Mozilla 438-10; serial number [id number]; implanted unknown date. Bipolar polarity. P waves 1.3 mV. Sensitivity 0.3 mV. Atrial impedance 300 ohms. Atrial threshold 1.5 V at 0.4 ms. Amplitude 2.0 V at 0.4 ms. The ventricular lead was a Biotronik Linox; serial number [id number]; implanted March 15, 2013. Bipolar polarity. R waves none detected. Sensitivity 0.9 mV. Ventricular impedance 560 ohms. Ventricular threshold 0.75 V at 0.4 ms. Amplitude 2.0 V at 0.4 ms. The ventricular lead was a payevertronic [id number]; serial number [id number]; implanted March 15, 2013. Unipolar polarity. R waves, none detected. Ventricular impedance 470 ohms. Ventricular threshold 1.5 V at 0.4 ms. Amplitude 2.5 V at 0.4 ms. LORENZO RING M.D. [id number] cc: MD Velvet Whiting MD MTDD
[2019-04-27] MEDS: KETOROLAC TROMETHAMINE 30 MG/1 ML VIAL IVPUSH SCH ×3 (01:11→17:22)
[2019-04-27] MEDS: DOCUSATE SODIUM 100 MG CAPSULE (FP) PO SCH ×3 (05:38→22:19)
[2019-04-27 06:48] LABS: HEMATOCRIT 30.7 % (35.4-49); HEMOGLOBIN 10.2 GM/dL (11.7-16.9); MCH 30.7 pg (25.7-33.7); MCHC 33.2 g/dl (32.0-35.9); MEAN CELL VOLUME 92.5 fl (80-96); MEAN PLT VOLUME 8.5 fl (7.5-11.1); PLATELET COUNT 205 K/MM3 (134-434); RBC 3.32 M/mm3 (4.00-5.60); WHITE BLOOD COUNT 4.6 K/mm3 (4.0-10.0)
[2019-04-27 07:17] LABS: ALBUMIN 2.8 g/dl (3.4-5.0); BILIRUBIN,TOTAL 0.5 mg/dL (0.2-1); BLOOD UREA NITROGEN 19.3 mg/dL (7-18); CALCIUM 8.5 mg/dL (8.5-10.1); CREATININE 0.4 mg/dL (0.55-1.3); POTASSIUM 4.2 mmol/L (3.5-5.1); TOT PROT 5.3 g/dl (6.4-8.2)
--- NOTE | 2019-04-27 07:46 | PN ---
Progress Note (short form) - Note Progress Note: INTERVENTIONAL CARDIOLOGY POD #1 s/p Biv PPM pulse generator replacement Alert. Supine in bed resting in position of comfort. No complaints. Denies n/v, CP, palpitations, SOB or MACE. AVSS. Afebrile. PE Gen: alert. nad. Chest: left chest wall dressing removed on rounds --> steri strips intact. no hematoma. Problem List - Problems (1) Biventricular AICD generator malfunction Assessment/Plan: POD #1 s/p Biv PPM pulse generator replacement Cont care as per primary medical team Refer to DISCHARGE PLAN tab for wound care and f/u instructions. On behalf of Dr. Ring, thank you for the opportunity to participate in your patient's care Code(s): T82.111A - BREAKDOWN OF CARDIAC PULSE GENERATOR (BATTERY), INIT
[2019-04-27] MEDS: TAMSULOSIN HCL 0.4 MG CAP PO SCH (09:06)
[2019-04-27] MEDS ORDERED: PT OWN MED DRAWER 7, Y5N ONE (09:09)
[2019-04-27] MEDS: ASPIRIN 81 MG CHEWABLE TABLETS PO SCH (09:16)
[2019-04-27] MEDS: PANTOPRAZOLE 40 MG TABLET PO SCH (09:16)
[2019-04-27] MEDS: BACITRACIN 15 GM TUBE TOPICAL OINTMENT TP SCH (09:17)
[2019-04-27] MEDS: MULTIVIT-MINERALS ORAL LIQUID PO SCH (09:17)
[2019-04-27] MEDS: LIDOCAINE 5% TOPICAL PATCH TP SCH (09:18)
[2019-04-27] MEDS: AMINO ACIDS/PROTEIN HYDROLYS 30 ML LIQUID.PKT PO SCH ×2 (09:23→17:22)
--- NOTE | 2019-04-27 11:19 | EKG ---
Test Reason : Blood Pressure : / mmHG Vent. Rate : 070 BPM Atrial Rate : 070 BPM P-R Int : 146 ms QRS Dur : 140 ms QT Int : 450 ms P-R-T Axes : 084 -43 086 degrees QTc Int : 486 ms POOR DATA QUALITY, INTERPRETATION MAY BE ADVERSELY AFFECTED Atrial-sensed ventricular-paced rhythm ABNORMAL ECG WHEN COMPARED WITH ECG OF 19-APR-2019 09:46, PREMATURE VENTRICULAR COMPLEXES ARE NO LONGER PRESENT VENT. RATE HAS DECREASED BY 12 BPM Confirmed by JAZMYN COOLEY MD ([id number]) on 04/27/2019 11:18:48 AM Referred By: Confirmed By:JAZMYN COOLEY MD
--- NOTE | 2019-04-27 12:33 | PN ---
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 - Current Medication List Current Medications: Active Medications Amino Acids (Prosource No Carb Liquid Pkt) 30 ml PO BID@0800,1730 [facility] Last Admin: 04/27/19 09:23 Dose: 30 ml Documented by: Aspirin (Asa -) 81 mg PO DAILY [facility] Last Admin: 04/27/19 09:16 Dose: 81 mg Documented by: Bacitracin (Bacitracin -) 1 applic TP DAILY [facility] Last Admin: 04/27/19 09:17 Dose: 1 appful Documented by: Docusate Sodium (Colace -) 100 mg PO TID [facility] Last Admin: 04/27/19 05:38 Dose: Not Given Documented by: Sodium Chloride (Normal Saline -) 1,000 mls @ 100 mls/hr IV ASDIR [facility] Last Admin: 04/26/19 20:15 Dose: Not Given Documented by: Ketorolac Tromethamine (Toradol Injection -) 30 mg IVPUSH Q8H-IV [facility] Stop: 04/30/19 09:59 Last Admin: 04/27/19 09:18 Dose: 30 mg Documented by: Lidocaine (Lidoderm Patch -) 1 patch TP DAILY [facility] Last Admin: 04/27/19 09:18 Dose: 1 patch Documented by: Miscellaneous (Lidoderm Patch Removal) 1 each MC DAILY@2200 [facility] Last Admin: 04/26/19 21:31 Dose: 1 each Documented by: Multivitamins/Minerals (Certavite-Antioxidant Liquid) 15 ml PO DAILY [facility] Last Admin: 04/27/19 09:17 Dose: 15 ml Documented by: Pantoprazole Sodium (Protonix -) 40 mg PO DAILY [facility] Last Admin: 04/27/19 09:16 Dose: 40 mg Documented by: Tamsulosin HCl (Flomax -) 0.4 mg PO DAILY@0830 [facility] Last Admin: 04/27/19 09:06 Dose: 0.4 mg Documented by: - Objective Vital Signs: Vital Signs Temperature 98.1 F 04/27/19 09:00 Pulse Rate 79 04/27/19 09:00 Respiratory Rate 18 04/27/19 09:00 Blood Pressure 142/84 04/27/19 09:00 O2 Sat by Pulse Oximetry (%) 96 04/26/19 21:00 Constitutional: Yes: Mild Distress Cardiovascular: Yes: Regular Rate and Rhythm Respiratory: Yes: WNL Gastrointestinal: Yes: Soft Genitourinary: Yes: Anglin Present Musculoskeletal: Yes: Muscle Weakness Edema: No Integumentary: Yes: WNL Wound/Incision: Yes: Clean/Dry Neurological: Yes: Confusion, Pre-Existing Deficit Psychiatric: Yes: Other Labs: CBC, BMP 04/27/19 06:00 04/27/19 06:00 INR, PTT INR 1.11 (0.83-1.09) H 04/20/19 06:05 Problem List - Problems (1) Atrial flutter Code(s): I48.92 - UNSPECIFIED ATRIAL FLUTTER (2) Dizziness Code(s): R42 - DIZZINESS AND GIDDINESS (3) Fall Code(s): W19.XXXA - UNSPECIFIED FALL, INITIAL ENCOUNTER Qualifiers: Encounter type: initial encounter Qualified Code(s): W19.XXXA - Unspecified fall, initial encounter (4) Malnutrition Code(s): E46 - UNSPECIFIED PROTEIN-CALORIE MALNUTRITION (5) Near syncope Code(s): R55 - SYNCOPE AND COLLAPSE (6) Atypical chest pain Code(s): R07.89 - OTHER CHEST PAIN (8) Transaminitis Code(s): R74.0 - NONSPEC ELEV OF LEVELS OF TRANSAMNS & LACTIC ACID DEHYDRGNSE (9) Severe protein-calorie malnutrition Code(s): E43 - UNSPECIFIED SEVERE PROTEIN-CALORIE MALNUTRITION Assessment/Plan ADVANCE TO FULL LIQUID DIET CT ABDOMEN PENDING FOR LIVER EVALUATION TRANSAMINITIS CONTINUES, CHECK LABS IN AM RETAIL PRODUCT DEMO SPECIALIST POD #2 GI FOLLOW UP ADD ENSURE SHAKES AND PUDDING FOR SEVERE PROTEIN MALNUTRION WILL NEED SNF
--- NOTE | 2019-04-27 14:11 | PN ---
Progress Note, HAND SAMPLE MAKER - Note Progress Note: Selected Entries 04/26/19 04/26/19 04/26/19 02:00 06:00 08:29 Temperature 98 F 98.3 F 97.9 F 04/26/19 04/26/19 04/26/19 17:57 19:30 22:00 Temperature 98.8 F 97.9 F 97.5 F L 04/27/19 04/27/19 04/27/19 02:00 05:03 09:00 Temperature 97.8 F 98.1 F 98.1 F Laboratory Tests 04/27/19 06:00 WBC 4.6 PER NURSING NOTE, 04/25, Pt was eating sandwich and coughing. Suctioned for clear secretions and pieces of bread and turkey. Pt was tolerating diet, asking for reg food.Based on mbs, stasis of Puree in pharynx and impaired esophageal emptying. Less coughing on modified diet Suggest Dys ground. Refer to MBS rec
--- NOTE | 2019-04-27 16:17 | PN ---
Progress Note, Physician Chief Complaint: The patient appears comfortable at the time of exam. He reports no chest pain, shortness of breath, palpitation or dizziness. Telemetry reviewed, it showed sinus rhythm with atrial sensing and ventricular pacing. History of Present Illness: 63 year old man with PMHx of myotonic dystrophy, with history of multiple falls in the past, h/o atrial flutter s/p multiple cardioversions in the past, followed by PPM then Medtronic BIV ICD (unknown indication for ICD), followed by Dr. Jaramillo at [facility], orthostatic hypotension admitted with recurrent falls with L sided back pain. Dr. Carlton discussed interrogation with Medtronic. ICD is at EOS and pt is pacing dependent. S/p Medtronic SHEEP FARM WORKER-P pulse generator replacement by Dr. Ring on 04/26/19. Echo 04/20/2019: Normal LV size, wall motion and systolic function. LVEF = 50- 55%. Normal RV. Pacer wire in RV. Normal LA and RA in size. No significant valvular abnormalities. - Current Medication List Current Medications: Active Medications Amino Acids (Prosource No Carb Liquid Pkt) 30 ml PO BID@0800,1730 [facility] Last Admin: 04/27/19 09:23 Dose: 30 ml Documented by: Aspirin (Asa -) 81 mg PO DAILY [facility] Last Admin: 04/27/19 09:16 Dose: 81 mg Documented by: Bacitracin (Bacitracin -) 1 applic TP DAILY [facility] Last Admin: 04/27/19 09:17 Dose: 1 appful Documented by: Docusate Sodium (Colace -) 100 mg PO TID [facility] Last Admin: 04/27/19 13:13 Dose: 100 mg Documented by: Sodium Chloride (Normal Saline -) 1,000 mls @ 100 mls/hr IV ASDIR [facility] Last Admin: 04/26/19 20:15 Dose: Not Given Documented by: Ketorolac Tromethamine (Toradol Injection -) 30 mg IVPUSH Q8H-IV [facility] Stop: 04/30/19 09:59 Last Admin: 04/27/19 09:18 Dose: 30 mg Documented by: Lidocaine (Lidoderm Patch -) 1 patch TP DAILY [facility] Last Admin: 04/27/19 09:18 Dose: 1 patch Documented by: Miscellaneous (Lidoderm Patch Removal) 1 each MC DAILY@2200 [facility] Last Admin: 04/26/19 21:31 Dose: 1 each Documented by: Multivitamins/Minerals (Certavite-Antioxidant Liquid) 15 ml PO DAILY [facility] Last Admin: 04/27/19 09:17 Dose: 15 ml Documented by: Pantoprazole Sodium (Protonix -) 40 mg PO DAILY [facility] Last Admin: 04/27/19 09:16 Dose: 40 mg Documented by: Tamsulosin HCl (Flomax -) 0.4 mg PO DAILY@0830 [facility] Last Admin: 04/27/19 09:06 Dose: 0.4 mg Documented by: - Objective Vital Signs: Vital Signs Temperature 97.4 F L 04/27/19 15:31 Pulse Rate 76 04/27/19 15:31 Respiratory Rate 20 04/27/19 15:31 Blood Pressure 132/68 04/27/19 15:31 O2 Sat by Pulse Oximetry (%) 98 04/27/19 09:00 General: Well developed. Poorly nourished, chronic ill and frail. No acute distress. Head: Normocephalic. Atraumatic, Eyes: PERRLA, EOMI. Sclerae anicteric. Conjunctivae clear. Neck: Supple. No JVD. No bruits. Heart: Normal S1, S2: Regular rhythm and rate. No murmur. No gallop or rub. Lungs: Symmetrical air entry. Clear to auscultation. No crackles. No wheezing or rhonchi. Abdomen: Soft. Bowel sound positive. Non tender. No masses. Extremities: Sarcopenia. No edema. No clubbing or cyanosis. PD 2+, equal bilaterally. Neuro: Intact, no focal findings. AAO X3. Labs: CBC, BMP 04/27/19 06:00 04/27/19 06:00 INR, PTT INR 1.11 (0.83-1.09) H 04/20/19 06:05 Assessment/Plan 63 year old man with PMHx of myotonic dystrophy, with history of multiple falls in the past, h/o atrial flutter s/p multiple cardioversions in the past, followed by PPM then Medtronic BIV ICD (unknown indication for ICD), followed by Dr. Jaramillo at [facility], orthostatic hypotension admitted with recurrent falls with L sided back pain. Dr. Carlton discussed interrogation with Medtronic. ICD is at EOS and pt is pacing dependent. S/p Medtronic SHEEP FARM WORKER-P pulse generator replacement by Dr. Ring on 04/26/19. Echo 04/20/2019: Normal LV size, wall motion and systolic function. LVEF = 50- 55%. Normal RV. Pacer wire in RV. Normal LA and RA in size. No significant valvular abnormalities. 1) ICD is at end of service (EOS) nd pt is pacing dependent. S/p Medtronic SHEEP FARM WORKER-P pulse generator replacement by Dr. Ring on 04/26/19. Currently, in sinus with atrial sensing and ventricular pacing. 2) Atrial flutter -known h/o with prior cardioversions -not on full AC at home, on ASA -cont ASA if safe to do so -outpatient fup with his counter intelligence agent 3) Falls-h/o recurrent falls, unclear that recent falls were syncopal events -not c/w ACS -last echo 04/20/19 showed normal LVEF. -check orthostatic BP -May liberate salt intake and encourage oral hydration. Outpatient cardiac follow up with Dr. Carlton. Please do not hesitate to call us for reconsult at any time if any further questions or additional issue arises regarding this patient.
[2019-04-27] MEDS: SODIUM CHLORIDE 1,000 ML IV SCH ×2 (16:24→23:05)
[2019-04-27] MEDS: LIDOCAINE PATCH REMOVAL MC SCH (22:24)
[2019-04-28] MEDS: KETOROLAC TROMETHAMINE 30 MG/1 ML VIAL IVPUSH SCH ×3 (01:17→17:57)
[2019-04-28] MEDS: DOCUSATE SODIUM 100 MG CAPSULE (FP) PO SCH ×3 (06:00→21:21)
[2019-04-28] MEDS: AMINO ACIDS/PROTEIN HYDROLYS 30 ML LIQUID.PKT PO SCH ×2 (08:32→17:57)
[2019-04-28] MEDS: TAMSULOSIN HCL 0.4 MG CAP PO SCH (08:32)
--- NOTE | 2019-04-28 09:21 | PN ---
Progress Note, Physician - Current Medication List Current Medications: Active Medications Amino Acids (Prosource No Carb Liquid Pkt) 30 ml PO BID@0800,1730 [facility] Last Admin: 04/28/19 08:32 Dose: 30 ml Documented by: Aspirin (Asa -) 81 mg PO DAILY [facility] Last Admin: 04/27/19 09:16 Dose: 81 mg Documented by: Bacitracin (Bacitracin -) 1 applic TP DAILY [facility] Last Admin: 04/27/19 09:17 Dose: 1 appful Documented by: Docusate Sodium (Colace -) 100 mg PO TID [facility] Last Admin: 04/28/19 06:00 Dose: Not Given Documented by: Sodium Chloride (Normal Saline -) 1,000 mls @ 100 mls/hr IV ASDIR [facility] Last Admin: 04/27/19 23:05 Dose: 100 mls/hr Documented by: Ketorolac Tromethamine (Toradol Injection -) 30 mg IVPUSH Q8H-IV [facility] Stop: 04/30/19 09:59 Last Admin: 04/28/19 01:17 Dose: 30 mg Documented by: Lidocaine (Lidoderm Patch -) 1 patch TP DAILY [facility] Last Admin: 04/27/19 09:18 Dose: 1 patch Documented by: Miscellaneous (Lidoderm Patch Removal) 1 each MC DAILY@2200 [facility] Last Admin: 04/27/19 22:24 Dose: Not Given Documented by: Multivitamins/Minerals (Certavite-Antioxidant Liquid) 15 ml PO DAILY [facility] Last Admin: 04/27/19 09:17 Dose: 15 ml Documented by: Pantoprazole Sodium (Protonix -) 40 mg PO DAILY [facility] Last Admin: 04/27/19 09:16 Dose: 40 mg Documented by: Tamsulosin HCl (Flomax -) 0.4 mg PO DAILY@0830 [facility] Last Admin: 04/28/19 08:32 Dose: 0.4 mg Documented by: - Objective Vital Signs: Vital Signs Temperature 97.7 F 04/28/19 08:56 Pulse Rate 90 04/28/19 08:56 Respiratory Rate 18 04/28/19 08:56 Blood Pressure 109/53 L 04/28/19 08:56 O2 Sat by Pulse Oximetry (%) 98 04/27/19 21:00 Cardiovascular: Yes: S1, S2 Respiratory: Yes: Regular, CTA Bilaterally Gastrointestinal: Yes: Normal Bowel Sounds, Soft Labs: CBC, BMP 04/27/19 06:00 04/27/19 06:00 INR, PTT INR 1.11 (0.83-1.09) H 04/20/19 06:05 Problem List - Problems (1) Biventricular AICD generator malfunction Assessment/Plan: Operative Date: 04/26/19 Pre-Operative Diagnosis: biv icd pulse generator depletion Operation: Biv PPM pulse generator replacement Implants: Medtronic WALL COVERING INSTALLER-P Pulse generator Post-Operative Diagnosis: Same as Pre-op Surgeon: Andrae Ring V Code(s): T82.111A - BREAKDOWN OF CARDIAC PULSE GENERATOR (BATTERY), INIT (2) Atrial flutter Assessment/Plan: Cardio appreciated -known h/o with prior cardioversions -not on full AC at home, on ASA -cont ASA if safe to do so -outpatient fup with his yarder puncher Code(s): I48.92 - UNSPECIFIED ATRIAL FLUTTER (3) Elevated LFTs Assessment/Plan: GI following ct pending Code(s): R94.5 - ABNORMAL RESULTS OF LIVER FUNCTION STUDIES (4) Malnutrition Code(s): E46 - UNSPECIFIED PROTEIN-CALORIE MALNUTRITION
[2019-04-28] MEDS ORDERED: PT OWN MED DRAWER 7, Y5N ONE (10:09)
[2019-04-28] MEDS: MULTIVIT-MINERALS ORAL LIQUID PO SCH (10:11)
[2019-04-28] MEDS: ASPIRIN 81 MG CHEWABLE TABLETS PO SCH (10:11)
[2019-04-28] MEDS: BACITRACIN 15 GM TUBE TOPICAL OINTMENT TP SCH (10:11)
[2019-04-28] MEDS: PANTOPRAZOLE 40 MG TABLET PO SCH (10:11)
[2019-04-28] MEDS: LIDOCAINE 5% TOPICAL PATCH TP SCH (10:12)
[2019-04-28] MEDS: SODIUM CHLORIDE 1,000 ML IV SCH ×2 (13:38→23:10)
[2019-04-28] MEDS: LIDOCAINE PATCH REMOVAL MC SCH (21:21)
[2019-04-29] MEDS: KETOROLAC TROMETHAMINE 30 MG/1 ML VIAL IVPUSH SCH ×2 (01:23→10:25)
[2019-04-29] MEDS: DOCUSATE SODIUM 100 MG CAPSULE (FP) PO SCH ×3 (05:58→21:50)
[2019-04-29 06:58] LABS: BASO % 0.7 % (0-2.0); EOS % 5.1 % (0-4.5); HEMATOCRIT 30.5 % (35.4-49); HEMOGLOBIN 10.4 GM/dL (11.7-16.9); MCH 31.2 pg (25.7-33.7); MCHC 34.1 g/dl (32.0-35.9); MEAN CELL VOLUME 91.5 fl (80-96); MEAN PLT VOLUME 8.3 fl (7.5-11.1); MONO % 13.4 % (3.8-10.2); NEUT % 67.8 % (42.8-82.8); PLATELET COUNT 245 K/MM3 (134-434); RBC 3.33 M/mm3 (4.00-5.60); RDW 14.1 % (11.9-15.9); WHITE BLOOD COUNT 6.5 K/mm3 (4.0-10.0)
[2019-04-29 07:27] LABS: ALBUMIN 2.8 g/dl (3.4-5.0); BILIRUBIN,TOTAL 0.3 mg/dL (0.2-1); BLOOD UREA NITROGEN 18.6 mg/dL (7-18); CALCIUM 8.7 mg/dL (8.5-10.1); CREATININE 0.4 mg/dL (0.55-1.3); TOT PROT 5.4 g/dl (6.4-8.2)
[2019-04-29] MEDS: AMINO ACIDS/PROTEIN HYDROLYS 30 ML LIQUID.PKT PO SCH ×2 (08:40→18:22)
[2019-04-29] MEDS: TAMSULOSIN HCL 0.4 MG CAP PO SCH (08:40)
[2019-04-29] MEDS ORDERED: PT OWN MED DRAWER 7, Y5N ONE (10:15)
[2019-04-29] MEDS: LIDOCAINE 5% TOPICAL PATCH TP SCH (10:23)
[2019-04-29] MEDS: ASPIRIN 81 MG CHEWABLE TABLETS PO SCH (10:23)
[2019-04-29] MEDS: BACITRACIN 15 GM TUBE TOPICAL OINTMENT TP SCH (10:23)
[2019-04-29] MEDS: PANTOPRAZOLE 40 MG TABLET PO SCH (10:23)
[2019-04-29] MEDS: MULTIVIT-MINERALS ORAL LIQUID PO SCH (10:24)
--- NOTE | 2019-04-29 10:59 | PN ---
Progress Note, Physician - Current Medication List Current Medications: Active Medications Amino Acids (Prosource No Carb Liquid Pkt) 30 ml PO BID@0800,1730 [facility] Last Admin: 04/29/19 08:40 Dose: 30 ml Documented by: Aspirin (Asa -) 81 mg PO DAILY [facility] Last Admin: 04/29/19 10:23 Dose: 81 mg Documented by: Bacitracin (Bacitracin -) 1 applic TP DAILY [facility] Last Admin: 04/29/19 10:23 Dose: 1 appful Documented by: Docusate Sodium (Colace -) 100 mg PO TID [facility] Last Admin: 04/29/19 05:58 Dose: Not Given Documented by: Lidocaine (Lidoderm Patch -) 1 patch TP DAILY [facility] Last Admin: 04/29/19 10:23 Dose: 1 patch Documented by: Miscellaneous (Lidoderm Patch Removal) 1 each MC DAILY@2200 [facility] Last Admin: 04/28/19 21:21 Dose: Not Given Documented by: Multivitamins/Minerals (Certavite-Antioxidant Liquid) 15 ml PO DAILY [facility] Last Admin: 04/29/19 10:24 Dose: 15 ml Documented by: Pantoprazole Sodium (Protonix -) 40 mg PO DAILY [facility] Last Admin: 04/29/19 10:23 Dose: 40 mg Documented by: Tamsulosin HCl (Flomax -) 0.4 mg PO DAILY@0830 [facility] Last Admin: 04/29/19 08:40 Dose: 0.4 mg Documented by: - Objective Vital Signs: Vital Signs Temperature 97.6 F 04/29/19 08:56 Pulse Rate 73 04/29/19 08:56 Respiratory Rate 18 04/29/19 08:56 Blood Pressure 108/67 04/29/19 08:56 O2 Sat by Pulse Oximetry (%) 98 04/28/19 21:00 Cardiovascular: Yes: S1, S2 Respiratory: Yes: Regular, CTA Bilaterally Gastrointestinal: Yes: Normal Bowel Sounds, Soft Labs: CBC, BMP 04/29/19 06:00 04/29/19 06:00 INR, PTT INR 1.11 (0.83-1.09) H 04/20/19 06:05 Problem List - Problems (1) Biventricular AICD generator malfunction Assessment/Plan: Operative Date: 04/26/19 Pre-Operative Diagnosis: biv icd pulse generator depletion Operation: Biv PPM pulse generator replacement Implants: Medtronic KENNEL TECHNICIAN-P Pulse generator Post-Operative Diagnosis: Same as Pre-op Surgeon: Andrae Ring V Code(s): T82.111A - BREAKDOWN OF CARDIAC PULSE GENERATOR (BATTERY), INIT (2) Atrial flutter Assessment/Plan: Cardio appreciated -known h/o with prior cardioversions -not on full AC at home, on ASA -cont ASA if safe to do so -outpatient 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
[2019-04-29] MEDS ORDERED: ACETAMINOPHEN 325 MG TABLET (FP) PO ONE (21:31)
[2019-04-29] MEDS: LIDOCAINE PATCH REMOVAL MC SCH (21:51)
--- NOTE | 2019-04-29 21:55 | PN ---
Progress Note, Physician Chief Complaint: left lobe thyroid nodule - Current Medication List Current Medications: Active Medications Amino Acids (Prosource No Carb Liquid Pkt) 30 ml PO BID@0800,1730 [facility] Last Admin: 04/29/19 18:22 Dose: 30 ml Documented by: Aspirin (Asa -) 81 mg PO DAILY [facility] Last Admin: 04/29/19 10:23 Dose: 81 mg Documented by: Bacitracin (Bacitracin -) 1 applic TP DAILY [facility] Last Admin: 04/29/19 10:23 Dose: 1 appful Documented by: Docusate Sodium (Colace -) 100 mg PO TID [facility] Last Admin: 04/29/19 21:50 Dose: 100 mg Documented by: Lidocaine (Lidoderm Patch -) 1 patch TP DAILY [facility] Last Admin: 04/29/19 10:23 Dose: 1 patch Documented by: Miscellaneous (Lidoderm Patch Removal) 1 each MC DAILY@2200 [facility] Last Admin: 04/29/19 21:51 Dose: 1 each Documented by: Multivitamins/Minerals (Certavite-Antioxidant Liquid) 15 ml PO DAILY [facility] Last Admin: 04/29/19 10:24 Dose: 15 ml Documented by: Pantoprazole Sodium (Protonix -) 40 mg PO DAILY [facility] Last Admin: 04/29/19 10:23 Dose: 40 mg Documented by: Tamsulosin HCl (Flomax -) 0.4 mg PO DAILY@0830 [facility] Last Admin: 04/29/19 08:40 Dose: 0.4 mg Documented by: - Objective Vital Signs: Vital Signs Temperature 98.3 F 04/29/19 18:00 Pulse Rate 80 04/29/19 18:00 Respiratory Rate 18 04/29/19 18:00 Blood Pressure 138/72 04/29/19 18:00 O2 Sat by Pulse Oximetry (%) 94 L 04/29/19 09:00 Constitutional: Yes: Calm Eyes: Yes: EOM Intact, Ptosis Neck: Yes: Other (left thyroid nodule palpable) Cardiovascular: Yes: Regular Rate and Rhythm Respiratory: Yes: Regular Gastrointestinal: Yes: WNL ...Rectal Exam: Yes: Deferred Musculoskeletal: Yes: WNL Edema: No Neurological: Yes: Alert, Oriented Labs: CBC, BMP 04/29/19 06:00 04/29/19 06:00 INR, PTT INR 1.11 (0.83-1.09) H 04/20/19 06:05 Problem List - Problems (1) Thyroid nodule, uninodular Code(s): E04.1 - NONTOXIC SINGLE THYROID NODULE (2) Atrial flutter Code(s): I48.92 - UNSPECIFIED ATRIAL FLUTTER (3) Biventricular AICD generator malfunction Code(s): T82.111A - BREAKDOWN OF CARDIAC PULSE GENERATOR (BATTERY), INIT (4) Elevated LFTs Code(s): R94.5 - ABNORMAL RESULTS OF LIVER FUNCTION STUDIES (5) Fall Code(s): W19.XXXA - UNSPECIFIED FALL, INITIAL ENCOUNTER Qualifiers: Encounter type: initial encounter Qualified Code(s): W19.XXXA - Unspecified fall, initial encounter (6) Malnutrition Code(s): E46 - UNSPECIFIED PROTEIN-CALORIE MALNUTRITION Assessment/Plan Current Active Problems Atrial flutter (Acute) Biventricular AICD generator malfunction (Acute) Dizziness (Acute) Elevated LFTs (Acute) Fall (Acute) Malnutrition (Acute) NICM (nonischemic cardiomyopathy) (Acute) Near syncope (Acute) Severe protein-calorie malnutrition (Acute) Thyroid nodule, uninodular (Acute) Transaminitis (Acute) Laboratory Results - last 24 hr 04/29/19 04/29/19 06:00 06:00 WBC 6.5 RBC 3.33 L Hgb 10.4 L Hct 30.5 L MCV 91.5 MCH 31.2 MCHC 34.1 RDW 14.1 Plt Count 245 MPV 8.3 Absolute Neuts (auto) 4.4 Neutrophils % 67.8 Lymphocytes % 13.0 Monocytes % 13.4 H Eosinophils % 5.1 H D Basophils % 0.7 Nucleated RBC % 0 Sodium 145 Potassium 4.0 Chloride 110 H Carbon Dioxide 30 Anion Gap 4 L BUN 18.6 H Creatinine 0.4 L Est GFR (CKD-EPI)AfAm 144.46 Est GFR (CKD-EPI)NonAf 124.64 Random Glucose 109 H Calcium 8.7 Total Bilirubin 0.3 AST 53 H ALT 97 H Alkaline Phosphatase 743 H Total Protein 5.4 L Albumin 2.8 L Laboratory Tests 04/23/19 04/23/19 05:40 05:40 TSH 1.05 D Thyroglobulin (ALYSE) 145.6 H plan: fna biopsy outpatient will follow with
[2019-04-30] MEDS: DOCUSATE SODIUM 100 MG CAPSULE (FP) PO SCH ×2 (05:48→13:04)
--- NOTE | 2019-04-30 08:21 | DS ---
Physical Examination Vital Signs: Vital Signs Temperature 97.4 F L 04/30/19 06:00 Pulse Rate 60 04/30/19 06:00 Respiratory Rate 18 04/30/19 06:00 Blood Pressure 115/57 L 04/30/19 06:00 O2 Sat by Pulse Oximetry (%) 97 04/29/19 21:00 Constitutional: Yes: Mild Distress Cardiovascular: Yes: Regular Rate and Rhythm Respiratory: Yes: WNL Gastrointestinal: Yes: Normal Bowel Sounds, Soft Renal/: Yes: WNL Musculoskeletal: Yes: Muscle Weakness Edema: No Integumentary: Yes: Rash, Venous Stasis Changes Wound/Incision: Yes: Open to air Neurological: Yes: Pre-Existing Deficit, Unsteady Gait Labs: CBC, BMP 04/29/19 06:00 04/29/19 06:00 Discharge Summary Problems reviewed: Yes Reason For Visit: SYNCOPE Current Active Problems Atrial flutter (Acute) Biventricular AICD generator malfunction (Acute) Dizziness (Acute) Elevated LFTs (Acute) Fall (Acute) Malnutrition (Acute) NICM (nonischemic cardiomyopathy) (Acute) Near syncope (Acute) Severe protein-calorie malnutrition (Acute) Thyroid nodule, uninodular (Acute) Transaminitis (Acute) Procedures: Principal: CT SCAN, XRAYS, LABS Hospital Course: ADMITTED FOR WEAKNESS, POOR APPETITE, PROTEIN MALNUTRITION SEVERE, URINE RETENTION IV FLUIDS, MODIFIED BARIUM SWALLOW EVAL, ALL DONE CAN CHANGE DIET TO RECOMMENDATIONS OF SPEECH/SWALLOW SONO ABDOMEN NO ACUTE CHANGES, HEPATITIS PANEL NEGATIVE WILL NEED FURTHER FOLLOW UP OF LFT AND POSSIBLE BONE SCAN IF PERSISTS TO BE HIGH Plan of Treatment: SNF PLACEMENT, NUTRITION NEEDS TO IMPROVE, URINARY RETENTION FOLLOW UP WITH Goals: NUTRITION GOALS ADDRESSED, FOLLOW UP, LFT ELEVATED NEEDS OUTPATIENT FOLLOW UP Condition: Stable - Instructions Diet, Activity, Other Instructions: CHECK LFT'S, ABDOMINAL SONO REVIEWED NO ACUTE CHANGES, HEPATITIS PANEL NEGATIVE NUTRITION PLEASE REVIEWED MODIFIED BARIUM AND SPEECH AND SWALLOW RECOMMENDATIONS CONSULT KEEP MUÑOZ IN CT LIVER WITH CONTRAST OUTPATIENT WITH IV ONCE BARIUM CLEARS GI TRACT MONITOR LFT'S Dr. Ring's post-operative discharge instructions There is white tape called steri strips on the skin, leave them in place. They will peel off in the next 7 to 10 days. Do Not peel them off. Keep your surgical site clean and dry. You may shower and get your incision wet starting 05/02/2019. Follow-up with Dr. Carlton in 2 weeks for post-operative wound check Referrals: Donell De Leon MD, MD [Primary Care Provider] - Disposition: [facility] - Home Medications Comprehensive Discharge Medication List: Ambulatory Orders Aspirin [ASA -] 81 mg PO DAILY tab.chew 12/19/16 Docusate Sodium [Colace -] 100 mg PO TID cap 12/19/16 Pantoprazole Sodium [Protonix -] 40 mg PO DAILY tab.ec 12/19/16 Aspirin [ASA -] 325 mg PO DAILY 04/20/19 Bisacodyl [Dulcolax] 5 mg PO PRN 04/20/19 Amino Acids/Protein Hydrolys [Prosource No Carb Liquid Pkt] 30 ml PO BID@0800,1730 packet 04/24/19 Bacitracin - [Bacitracin Topical Ointment -] 1 applic TP DAILY tube 04/24/19 Heparin - 5,000 unit SQ BID vial 04/24/19 Ibuprofen 400 mg PO BID PRN #60 tablet 04/24/19 Lidocaine Patch Removal [Lidoderm Patch Removal] 1 each MC DAILY@2200 each 04/24/19 Multivit-Minerals [Certavite-Antioxidant Liquid] 15 ml PO DAILY cup 04/24/19 Tamsulosin HCl [Flomax -] 0.4 mg PO DAILY@0830 cap.er.24h 04/24/19 Amino Acids/Protein Hydrolys [Prosource No Carb Liquid Pkt] 30 ml PO BID@0800,1730 packet 04/30/19 Bacitracin - [Bacitracin Topical Ointment -] 1 applic TP DAILY tube 04/30/19 Lidocaine 5% Patch [Lidoderm -] 1 patch TP DAILY patch 04/30/19 Multivit-Minerals [Certavite-Antioxidant Liquid] 15 ml PO DAILY cup 04/30/19 Tamsulosin HCl [Flomax -] 0.4 mg PO DAILY@0830 cap.er.24h 04/30/19
[2019-04-30] MEDS ORDERED: PT OWN MED DRAWER 7, Y5N ONE (09:06)
[2019-04-30] MEDS: AMINO ACIDS/PROTEIN HYDROLYS 30 ML LIQUID.PKT PO SCH (09:09)
[2019-04-30] MEDS: TAMSULOSIN HCL 0.4 MG CAP PO SCH (09:10)
[2019-04-30] MEDS: ASPIRIN 81 MG CHEWABLE TABLETS PO SCH (09:11)
[2019-04-30] MEDS: PANTOPRAZOLE 40 MG TABLET PO SCH (09:11)
[2019-04-30] MEDS: LIDOCAINE 5% TOPICAL PATCH TP SCH (09:12)
[2019-04-30] MEDS: BACITRACIN 15 GM TUBE TOPICAL OINTMENT TP SCH (09:12)
--- NOTE | 2019-04-30 10:07 | PN ---
Progress Note, REAL ESTATE SERVICES COORDINATOR - Note Progress Note: Selected Entries 04/26/19 04/26/19 04/26/19 02:00 06:00 08:29 Temperature 98 F 98.3 F 97.9 F 04/26/19 04/26/19 04/26/19 17:57 19:30 22:00 Temperature 98.8 F 97.9 F 97.5 F L 04/27/19 04/27/19 04/27/19 02:00 05:03 09:00 Temperature 97.8 F 98.1 F 98.1 F Laboratory Tests 04/27/19 06:00 WBC 4.6 Selected Entries 04/28/19 04/28/19 04/29/19 14:59 22:21 01:36 Breakfast 100% Lunch 100% Supper 75% Temperature 97.8 F 04/29/19 04/29/19 04/29/19 06:00 08:56 11:22 Breakfast 100% Lunch Supper Temperature 97.1 F L 97.6 F 04/29/19 04/29/19 04/29/19 15:00 18:00 22:00 Breakfast Lunch Supper Temperature 97.7 F 98.3 F 98.1 F 04/29/19 04/30/19 04/30/19 22:25 02:00 06:00 Breakfast Lunch Supper 50% Temperature 98.0 F 97.4 F L Laboratory Tests 04/29/19 06:00 WBC 6.5 Last week pt was eating sandwich and coughing. Suctioned for clear secretions and pieces of bread and turkey. Pt was tolerating diet, asking for reg food. Based on mbs, stasis of Puree in pharynx and impaired esophageal emptying. Less coughing on modified diet Pending d/c to [facility]. Suggest Swallowing tx,Dys ground Repeat MBS to upgrade diet, if indicated.
[2019-04-30] MEDS: MULTIVIT-MINERALS ORAL LIQUID PO SCH (11:15)
[2019-04-30 11:47] VITALS: BP 107/62; PULSE 76; TEMP 97.3
--- NOTE | 2019-05-01 17:41 | PATH ---
Surgical Pathology Report Patient Name: TIAGO MCNEAL Med. Rec. #: [id number] /Age/Gender: 1955 (Age: 63) / M Account: [id number] Location: [facility]/ADOL Taken: 04/26/2019 Received: 04/27/2019 Reported: 05/01/2019 Physicians: Andrae Ring M.D. Specimen(s) Received PACEMAKER GENERATOR Clinical History Syncope, biv icd generator depletion Final Diagnosis PACEMAKER GENERATOR, REMOVAL: WELD INSPECTOR. MACROSCOPIC DIAGNOSIS. Electronically Signed Rae Whaley M.D. Gross Description Received fresh labeled "pacemaker generator," is a 7.0 x 5.2 x 1.4 cm calero metallic device, consistent with a pacemaker. The specimen has the following inscription: "Medtronic Viva XT ADULT MANAGER-D [id number] SN: [id number]. DDE-DDDR [place]." No soft tissue is present. No sections are submitted, gross only. /04/27/2019 [facility]/04/27/2019
== END 2019-04-30 15:16 | DRG 258 ==
LOC: JER 06:30 → JERBED 10:06 → OBSVTOIN 14:52 → J4S 18:44
PROVIDERS: ADMIT Family Medicine; ATTEND Family Medicine
PROC: 0JPT0PZ Removal of Cardiac Rhythm Related Device from Trunk Subcutaneous Tissue and Fascia, Open Approach (ICD-10-PCS; 2019-04-26)
PROC: 0JH607Z Insertion of Cardiac Resynchronization Pacemaker Pulse Generator into Chest Subcutaneous Tissue and Fascia, Open Approach (ICD-10-PCS; principal; 2019-04-26 18:00)
DX: T82.111A Breakdown (mechanical) of cardiac pulse generator (battery), initial encounter (principal); E43 Unspecified severe protein-calorie malnutrition; G93.41 Metabolic encephalopathy; S22.079A Unspecified fracture of T9-T10 vertebra, initial encounter for closed fracture; R64 Cachexia; Z68.1 Body mass index [BMI] 19.9 or less, adult; I48.92 Unspecified atrial flutter; I42.9 Cardiomyopathy, unspecified; R55 Syncope and collapse; G71.11 Myotonic muscular dystrophy; W19.XXXA Unspecified fall, initial encounter; Y93.9 Activity, unspecified; Y92.89 Other specified places as the place of occurrence of the external cause; Y99.9 Unspecified external cause status; Y83.9 Surgical procedure, unspecified as the cause of abnormal reaction of the patient, or of later complication, without mention of misadventure at the time of the procedure; R74.0 Nonspecific elevation of levels of transaminase and lactic acid dehydrogenase [LDH]; R33.9 Retention of urine, unspecified; E04.1 Nontoxic single thyroid nodule; R94.5 Abnormal results of liver function studies; N40.0 Benign prostatic hyperplasia without lower urinary tract symptoms
CPT/HCPCS: 36415; 70450-TC; 71045-TC-FY; 71101-TC-LT-FY; 72070-TC-FY; 72100-TC-FY; 72125-TC; 74018-TC-FY; 74230-TC-FY; 76700-TC; 80053; 80074; 81003; 82550; 82553; 82728; 82977; 83516; 83540; 83550; 83615; 83735; 84100; 84439; 84443; 84484; 85025; 85027; 85610; 86038; 87086; 88300-TC; 92611-GN; 93005; 93010; 93306-TC; 93880-TC; 94760; 97116-GP; 97161-GP; 99285-25; G0378; J1644; J7030

== ENCOUNTER 2020-11-02 17:06 | Inpatient (IN) | payer OTHER, BC ==
[2020-11-02 17:48] LABS: VENOUS BASE EXCESS -1.1 mmol/L (-2-2); VENOUS PCO2 55.3 mmHg (38-52); VENOUS PH 7.297 (7.310-7.410)
[2020-11-02 18:00] LABS: INR 1.21 (0.83-1.09); PROTHROMBIN TIME (PATIENT) 14.8 SEC (9.7-13.0)
[2020-11-02 18:01] LABS: HEMATOCRIT 41.5 % (35.4-49); HEMOGLOBIN 13.8 GM/dL (11.7-16.9); MCH 29.7 pg (25.7-33.7); MCHC 33.2 g/dl (32.0-35.9); MEAN CELL VOLUME 89.7 fl (80-96); MEAN PLT VOLUME 9.3 fl (7.5-11.1); PLATELET COUNT 128 10^3/uL (134-434); RBC 4.63 M/mm3 (4.00-5.60); RDW 14.3 % (11.9-15.9); WHITE BLOOD COUNT 21.3 K/mm3 (4.0-10.0)
[2020-11-02 18:03] LABS: ACTIVATED PTT 26.9 SECONDS (25.2-36.5)
[2020-11-02 18:27] LABS: ALBUMIN 2.3 g/dl (3.4-5.0); BLOOD UREA NITROGEN 30.4 mg/dL (7-18); CALCIUM 8.3 mg/dL (8.5-10.1)
[2020-11-02 18:30] LABS: CREATININE 1.3 mg/dL (0.55-1.3)
[2020-11-02 18:32] LABS: BILIRUBIN,TOTAL 1.3 mg/dL (0.2-1); TOT PROT 5.4 g/dl (6.4-8.2)
[2020-11-02 18:37] LABS: LACTIC ACID 2.7 mmol/L (0.4-2.0)
[2020-11-02] MEDS ORDERED: SODIUM CHLORIDE 0.9% 500 ML INFUS.BAG IV ONE ×2 (18:55→21:57)
[2020-11-02 19:34] LABS: EPI CELLS 2 /uL (0-25.1); HYALINE CASTS 4 /uL (0-3.1); PH,URINE 5.5 (5.0-8.0); URINE APPEARANCE CLOUDY; URINE BACTERIA >9,000 /uL (0-1359); URINE BILIRUBIN NEGATIVE (NEGATIVE); URINE COLOR DK YELLOW; URINE GLUCOSE (UA) NEGATIVE (NEGATIVE); URINE KETONE NEGATIVE (NEGATIVE); URINE LEUK ESTERASE 2+ (NEGATIVE); URINE NITRITE NEGATIVE (NEGATIVE); URINE PROTEIN 1+ (NEGATIVE); URINE UROBILINOGEN 0.2 mg/dL (0.2-1.0); URINE WBC 117 /uL (0-25.8)
[2020-11-02 19:40] LABS: ANISOCYTOSIS 0; MACROCYTOSIS 0; PLATELET ESTIMATE DECREASED
[2020-11-02] MEDS ORDERED: CEFTRIAXONE 1 GM in DEXTROSE 5%-WATER - 100 ML IVPB ONE (20:55)
[2020-11-02] MEDS ORDERED: CEFTRIAXONE 1 GM/50 ML BAG ONE (21:38)
[2020-11-02 22:49] LABS: LACTIC ACID 6.9 mmol/L (0.4-2.0)
[2020-11-02] MEDS ORDERED: PIPERACILLIN/TAZOB 4.5 GM 4.5 GM in DEXTROSE 5%-WATER 100 ML IVPB ONE (23:26)
[2020-11-02] MEDS ORDERED: VANCOMYCIN 1 GRAM (PRE-DOCKED) 1,000 MG/250 ML BAG IVPB ONE (23:26)
[2020-11-02] MEDS ORDERED: HALOPERIDOL LACTATE 5 MG/ML IM ONE (23:32)
[2020-11-02] MEDS ORDERED: HALOPERIDOL LACTATE 5 MG/ML ONE (23:33)
[2020-11-02] MEDS ORDERED: MIDAZOLAM HCL 2 MG/2 ML SINGLE DOSE VIAL IVPUSH ONE (23:52)
[2020-11-03] MEDS ORDERED: PIPERACILLIN/TAZOB 4.5 GM 4.5 GM/100 ML BAG IVPB ONE (00:06)
[2020-11-03] MEDS ORDERED: ACETAMINOPHEN 1000 MG/100 ML VIAL (NON FORMULARY) IVPB ONE (01:56)
[2020-11-03] MEDS ORDERED: ACETAMINOPHEN INJECTION 100 ML IVPB ONE (01:56)
[2020-11-03] MEDS: NOREPINEPHRINE BITARTRATE 8,000 MCG/500 ML BAG IVPB SCH ×3 (02:00→22:09)
[2020-11-03] MEDS ORDERED: VANCOMYCIN 1 GRAM (PRE-DOCKED) 1,000 MG/250 ML BAG IVPB ONE ×2 (02:12→09:08)
[2020-11-03] MEDS ORDERED: RAPID SEQUENCE INTUBATION KIT NR ONE (02:23)
[2020-11-03] MEDS ORDERED: ROCURONIUM BROMIDE 50 MG/5 ML VIAL IV ONE (02:43)
[2020-11-03] MEDS ORDERED: ETOMIDATE 40 MG/20 ML VIAL IVPUSH ONE (02:43)
[2020-11-03] MEDS: SODIUM CHLORIDE 1,000 ML IV SCH ×2 (02:43→15:04)
[2020-11-03] MEDS ORDERED: LORazepam 2 MG/ML SDV VIAL IVPUSH ONE (02:44)
[2020-11-03] MEDS ORDERED: PROPOFOL 1,000,000 MCG/100 ML VIAL IVPB SCH (03:00)
[2020-11-03] MEDS ORDERED: PROPOFOL 1,000,000 MCG/100 ML VIAL ONE (03:03)
[2020-11-03] MEDS: VASOPRESSIN 40 UNITS/100 ML BAG IV SCH ×2 (03:35→15:03)
[2020-11-03] MEDS: PHENYLEPHRINE NS PREMIX 50,000 MCG/500 ML BAG CVP SCH ×2 (05:03→15:02)
[2020-11-03] MEDS: HYDROCORTISONE SOD SUCCINATE 100 MG/2 ML VIAL IVPB SCH ×4 (06:36→21:01)
[2020-11-03 07:20] LABS: HEMATOCRIT 38.2 % (35.4-49); HEMOGLOBIN 12.6 GM/dL (11.7-16.9); MCHC 32.9 g/dl (32.0-35.9); MEAN CELL VOLUME 91.4 fl (80-96); MEAN PLT VOLUME 10.4 fl (7.5-11.1); PLATELET COUNT 111 10^3/uL (134-434); RBC 4.18 M/mm3 (4.00-5.60)
[2020-11-03 07:21] LABS: CHLORIDE 110 mmol/L (98-107); SODIUM 139 mmol/L (136-145)
[2020-11-03 07:22] LABS: WHITE BLOOD COUNT 35.4 K/mm3 (4.0-10.0)
[2020-11-03 07:31] LABS: BLOOD UREA NITROGEN 35.7 mg/dL (7-18)
[2020-11-03 07:32] LABS: ALBUMIN 1.9 g/dl (3.4-5.0); ANION GAP 10 MMOL/L (8-16); CO2 19 mmol/L (21-32)
[2020-11-03 07:33] LABS: GLUCOSE,RANDOM 239 mg/dL (74-106); MAGNESIUM 1.8 mg/dL (1.8-2.4)
[2020-11-03 07:35] LABS: CREATININE 1.7 mg/dL (0.55-1.3); SGOT/AST 44 U/L (15-37); SGPT/ALT 44 U/L (13-61)
[2020-11-03 07:36] LABS: BILIRUBIN,TOTAL 1.3 mg/dL (0.2-1); TOT PROT 4.6 g/dl (6.4-8.2)
[2020-11-03 07:50] LABS: ALK PHOS 226 U/L (45-117); CALCIUM 6.7 mg/dL (8.5-10.1)
[2020-11-03 07:51] LABS: LACTIC ACID 3.4 mmol/L (0.4-2.0)
[2020-11-03] MEDS ORDERED: NOREPINEPHRINE BITARTRATE 4 MG/4 ML ML IV ONE (08:48)
[2020-11-03] MEDS ORDERED: SODIUM CHLORIDE 0.9% 500 ML INFUS.BAG IV ONE ×3 (08:54→23:01)
[2020-11-03] MEDS ORDERED: MIDAZOLAM IN 0.9 % SOD.CHLORID 1 MG/1 ML PLAST..BAG ONE (08:59)
[2020-11-03] MEDS ORDERED: MIDAZOLAM 100 MG in SODIUM CHLORIDE 100 ML IVPB SCH (09:00)
[2020-11-03] MEDS ORDERED: HEPARIN NA (PORCINE) 5,000 UNITS/ML 1ML VIAL ONE (09:07)
[2020-11-03] MEDS ORDERED: HYDROCORTISONE SOD SUCCINATE 100 MG/2 ML VIAL ONE (09:08)
[2020-11-03] MEDS: HEPARIN NA (PORCINE) 5,000 UNITS/ML 1ML VIAL SQ SCH ×3 (09:28→21:18)
[2020-11-03] MEDS ORDERED: DEXMEDETOMIDINE HCL 200 MCG/2 ML IVPB ONE (09:46)
[2020-11-03] MEDS ORDERED: VASOPRESSIN 20 UNITS/ML VIAL IV ONE (09:55)
[2020-11-03] MEDS ORDERED: VANCOMYCIN 1 GRAM (PRE-DOCKED) 1,000 MG/250 ML BAG IVPB SCH (10:00)
[2020-11-03] MEDS ORDERED: PIPERACILLIN/TAZOB 4.5 GM 4.5 GM in DEXTROSE 5%-WATER 100 ML IVPB SCH (10:00)
[2020-11-03 10:20] LABS: ANISOCYTOSIS 1+; MACROCYTOSIS 0; PLATELET ESTIMATE DECREASED; TEAR DROP CELLS 1+
[2020-11-03] MEDS: DEXMEDETOMIDINE IN 0.9 % NACL 200 MCG/50 ML EACH IVPB SCH (10:44)
[2020-11-03] MEDS: MIDAZOLAM IN 0.9 % SOD.CHLORID 100 MG/100 ML PLAST..BAG IVPB SCH ×2 (10:45→18:45)
[2020-11-03] MEDS: FENTANYL IVPB 500 MCG/100 ML BAG IVPB SCH (10:46)
[2020-11-03] MEDS ORDERED: MEROPENEM 1 GM VIAL (RESTRICTED TO ID) IVPB ONE ×2 (11:06→16:43)
[2020-11-03] MEDS: MEROPENEM 1 GM in DEXTROSE 5%-WATER 100 ML IVPB SCH ×2 (11:15→17:12)
[2020-11-03] MEDS: FLUDROCORTISONE ACETATE 0.1 MG TABLET (FP) PO SCH (11:47)
[2020-11-03] MEDS ORDERED: PHENYLEPHRINE HCL 10 MG/1 ML SINGLE DOSE VIAL ONE (14:21)
[2020-11-03] MEDS ORDERED: PT OWN MED DRAWER 7, Y5N ONE (15:11)
[2020-11-03] MEDS: MUPIROCIN 2% TOPICAL OINTMENT FOR DECOLONIZATION NS SCH ×2 (15:53→21:01)
[2020-11-03] MEDS: PANTOPRAZOLE SODIUM 40 MG VIAL IVPUSH SCH (15:53)
[2020-11-03] MEDS: INSULIN SLIDING SCALE (NOVOLOG) 1 VIAL SQ SCH ×2 (16:24→21:30)
[2020-11-03] MEDS ORDERED: DEXTROSE 5%-WATER 100 ML IVPB ONE (16:43)
[2020-11-03] MEDS: CHLORHEXIDINE GLUCONATE 4% CLEANSER FOR DECOLONIZATION TP SCH (21:01)
[2020-11-03] MEDS ORDERED: CALCIUM GLUCONATE 10% - 1,000 MG/10 ML VIAL IVPB ONE (21:30)
[2020-11-04] MEDS: PHENYLEPHRINE NS PREMIX 50,000 MCG/500 ML BAG CVP SCH ×2 (00:59→06:31)
[2020-11-04] MEDS: NOREPINEPHRINE BITARTRATE 8,000 MCG/500 ML BAG IVPB SCH ×2 (01:30→06:33)
[2020-11-04] MEDS: SODIUM CHLORIDE 1,000 ML IV SCH (01:30)
[2020-11-04] MEDS ORDERED: DEXTROSE 5%-WATER 100 ML IVPB ONE ×3 (01:31→14:29)
[2020-11-04] MEDS ORDERED: MEROPENEM 1 GM VIAL (RESTRICTED TO ID) IVPB ONE ×3 (01:31→14:29)
[2020-11-04] MEDS: MEROPENEM 1 GM in DEXTROSE 5%-WATER 100 ML IVPB SCH ×3 (01:33→17:48)
[2020-11-04] MEDS: HYDROCORTISONE SOD SUCCINATE 100 MG/2 ML VIAL IVPB SCH ×4 (04:00→20:02)
[2020-11-04] MEDS ORDERED: NOREPINEPHRINE BITARTRATE 4 MG/4 ML ML IV ONE (04:34)
[2020-11-04] MEDS ORDERED: PHENYLEPHRINE HCL 10 MG/1 ML SINGLE DOSE VIAL ONE (04:35)
[2020-11-04] MEDS: VASOPRESSIN 40 UNITS/100 ML BAG IV SCH ×2 (06:30→18:32)
[2020-11-04] MEDS: HEPARIN NA (PORCINE) 5,000 UNITS/ML 1ML VIAL SQ SCH ×3 (06:32→21:50)
[2020-11-04 07:16] LABS: HEMATOCRIT 39.8 % (35.4-49); HEMOGLOBIN 12.8 GM/dL (11.7-16.9); MCH 30.1 pg (25.7-33.7); MCHC 32.1 g/dl (32.0-35.9); MEAN CELL VOLUME 93.9 fl (80-96); MEAN PLT VOLUME 11.9 fl (7.5-11.1); PLATELET COUNT 85 10^3/uL (134-434); RBC 4.24 M/mm3 (4.00-5.60); RDW 15.4 % (11.9-15.9)
[2020-11-04 07:32] LABS: CHLORIDE 111 mmol/L (98-107); SODIUM 136 mmol/L (136-145)
[2020-11-04 07:38] LABS: WHITE BLOOD COUNT 35.4 K/mm3 (4.0-10.0)
[2020-11-04] MEDS: INSULIN SLIDING SCALE (NOVOLOG) 1 VIAL SQ SCH ×3 (07:40→18:05)
[2020-11-04 07:42] LABS: ANION GAP 12 MMOL/L (8-16); BLOOD UREA NITROGEN 37.3 mg/dL (7-18); CO2 13 mmol/L (21-32); GLUCOSE,RANDOM 91 mg/dL (74-106); MAGNESIUM 1.6 mg/dL (1.8-2.4)
[2020-11-04 07:45] LABS: PHOSPHOROUS 6.1 mg/dL (2.5-4.9); SGOT/AST 171 U/L (15-37); SGPT/ALT 187 U/L (13-61)
[2020-11-04 07:46] LABS: BILIRUBIN,TOTAL 1.3 mg/dL (0.2-1)
[2020-11-04 07:48] LABS: ALK PHOS 196 U/L (45-117)
[2020-11-04 07:51] LABS: ALBUMIN 1.3 g/dl (3.4-5.0); CALCIUM 5.9 mg/dL (8.5-10.1)
[2020-11-04] MEDS ORDERED: PT OWN MED DRAWER 7, Y5N ONE (08:01)
[2020-11-04] MEDS ORDERED: CALCIUM GLUCONATE 10% - 1,000 MG/10 ML VIAL IVPUSH ONE (09:15)
[2020-11-04] MEDS ORDERED: SODIUM CHLORIDE 0.9% 500 ML INFUS.BAG IV ONE (09:16)
[2020-11-04] MEDS ORDERED: SODIUM ZIRCONIUM CYCLOSILICATE (LOKELMA) 5 GM PACKET PO ONE (09:30)
[2020-11-04 09:31] LABS: ANISOCYTOSIS 0; MACROCYTOSIS 1+; PLATELET ESTIMATE DECREASED
[2020-11-04] MEDS ORDERED: SODIUM BICARBONATE 8.4% 50 MEQ/50 ML DISP.SYRIN IVPUSH ONE (10:00)
[2020-11-04] MEDS ORDERED: DEXTROSE 50%-WATER - 25 GM/50 ML VIAL IVPUSH ONE ×2 (10:00→22:13)
[2020-11-04] MEDS ORDERED: INSULIN REGULAR HUMAN 100 UNITS/ML *VIAL IVPUSH ONE (10:00)
[2020-11-04] MEDS ORDERED: VANCOMYCIN 1 GM in D5W (PRE-DOCKED) 1,000 MG/250 ML IVPB SCH (10:00)
[2020-11-04] MEDS: DEXMEDETOMIDINE IN 0.9 % NACL 200 MCG/50 ML EACH IVPB SCH (10:12)
[2020-11-04] MEDS: MUPIROCIN 2% TOPICAL OINTMENT FOR DECOLONIZATION NS SCH ×2 (10:13→21:50)
[2020-11-04] MEDS: MIDAZOLAM IN 0.9 % SOD.CHLORID 100 MG/100 ML PLAST..BAG IVPB SCH (10:13)
[2020-11-04] MEDS: FLUDROCORTISONE ACETATE 0.1 MG TABLET (FP) PO SCH (10:14)
[2020-11-04] MEDS: PANTOPRAZOLE SODIUM 40 MG VIAL IVPUSH SCH (10:15)
[2020-11-04] MEDS ORDERED: DEXTROSE 50%-WATER 25 GM/50 ML DISP.SYRIN ONE ×2 (10:21→22:39)
[2020-11-04] MEDS: FENTANYL IVPB 500 MCG/100 ML BAG IVPB SCH (10:22)
[2020-11-04 14:16] LABS: LACTIC ACID 4.5 mmol/L (0.4-2.0)
[2020-11-04] MEDS: SODIUM BICARBONATE 8.4% 50 MEQ/50 ML DISP.SYRIN IVPUSH SCH ×2 (16:47→19:59)
[2020-11-04 19:05] LABS: LACTIC ACID 3.1 mmol/L (0.4-2.0)
[2020-11-04] MEDS: CHLORHEXIDINE GLUCONATE 4% CLEANSER FOR DECOLONIZATION TP SCH (21:50)
[2020-11-05] MEDS: SODIUM CHLORIDE 1,000 ML IV SCH (00:23)
[2020-11-05] MEDS: INSULIN SLIDING SCALE (NOVOLOG) 1 VIAL SQ SCH ×5 (00:24→21:40)
[2020-11-05] MEDS: NOREPINEPHRINE BITARTRATE 8,000 MCG/500 ML BAG IVPB SCH ×2 (00:24→09:11)
[2020-11-05] MEDS: SODIUM BICARBONATE 8.4% 50 MEQ/50 ML DISP.SYRIN IVPUSH SCH (00:26)
[2020-11-05] MEDS: PHENYLEPHRINE NS PREMIX 50,000 MCG/500 ML BAG CVP SCH ×2 (01:16→05:31)
[2020-11-05] MEDS: MIDAZOLAM IN 0.9 % SOD.CHLORID 100 MG/100 ML PLAST..BAG IVPB SCH ×2 (02:11→21:26)
[2020-11-05] MEDS: FENTANYL IVPB 500 MCG/100 ML BAG IVPB SCH ×2 (02:11→21:26)
[2020-11-05] MEDS ORDERED: MEROPENEM 1 GM VIAL (RESTRICTED TO ID) IVPB ONE ×3 (02:12→15:55)
[2020-11-05] MEDS ORDERED: DEXTROSE 5%-WATER 100 ML IVPB ONE ×3 (02:12→15:55)
[2020-11-05] MEDS: MEROPENEM 1 GM in DEXTROSE 5%-WATER 100 ML IVPB SCH ×3 (02:13→16:58)
[2020-11-05] MEDS: HYDROCORTISONE SOD SUCCINATE 100 MG/2 ML VIAL IVPB SCH ×4 (02:17→21:28)
[2020-11-05] MEDS: VASOPRESSIN 40 UNITS/100 ML BAG IV SCH ×2 (05:31→16:51)
[2020-11-05] MEDS: HEPARIN NA (PORCINE) 5,000 UNITS/ML 1ML VIAL SQ SCH (06:28)
[2020-11-05 07:34] LABS: HEMATOCRIT 40.6 % (35.4-49); HEMOGLOBIN 13.1 GM/dL (11.7-16.9); MCH 29.5 pg (25.7-33.7); MCHC 32.4 g/dl (32.0-35.9); MEAN CELL VOLUME 91.2 fl (80-96); MEAN PLT VOLUME 10.5 fl (7.5-11.1); PLATELET COUNT 53 10^3/uL (134-434); RBC 4.45 M/mm3 (4.00-5.60); RDW 15.9 % (11.9-15.9)
[2020-11-05 07:39] LABS: WHITE BLOOD COUNT 43.4 K/mm3 (4.0-10.0)
[2020-11-05 07:48] LABS: CHLORIDE 103 mmol/L (98-107); SODIUM 134 mmol/L (136-145)
[2020-11-05 07:55] LABS: ALBUMIN 1.2 g/dl (3.4-5.0); ANION GAP 16 MMOL/L (8-16); CO2 15 mmol/L (21-32)
[2020-11-05 07:57] LABS: BLOOD UREA NITROGEN 42.3 mg/dL (7-18); GLUCOSE,RANDOM 86 mg/dL (74-106); MAGNESIUM 1.6 mg/dL (1.8-2.4)
[2020-11-05 07:58] LABS: CREATININE 2.2 mg/dL (0.55-1.3); PHOSPHOROUS 5.3 mg/dL (2.5-4.9); SGPT/ALT 244 U/L (13-61)
[2020-11-05 08:00] LABS: SGOT/AST 158 U/L (15-37)
[2020-11-05 08:01] LABS: BILIRUBIN,TOTAL 1.1 mg/dL (0.2-1); TOT PROT 4.1 g/dl (6.4-8.2)
[2020-11-05 08:17] LABS: ALK PHOS 283 U/L (45-117); CALCIUM 6.1 mg/dL (8.5-10.1)
[2020-11-05] MEDS ORDERED: PT OWN MED DRAWER 7, Y5N ONE (08:54)
[2020-11-05] MEDS: MUPIROCIN 2% TOPICAL OINTMENT FOR DECOLONIZATION NS SCH ×2 (09:01→21:27)
[2020-11-05] MEDS: FLUDROCORTISONE ACETATE 0.1 MG TABLET (FP) PO SCH (09:01)
[2020-11-05] MEDS: PANTOPRAZOLE SODIUM 40 MG VIAL IVPUSH SCH (09:01)
[2020-11-05 09:22] LABS: ANISOCYTOSIS 0; MACROCYTOSIS 0; PLATELET ESTIMATE DECREASED
[2020-11-05] MEDS ORDERED: SODIUM CHLORIDE 1,000 ML IV SCH (09:30)
[2020-11-05] MEDS ORDERED: DEXTROSE 50%-WATER 25 GM/50 ML DISP.SYRIN ONE ×2 (10:35→16:21)
[2020-11-05] MEDS ORDERED: DEXTROSE 50%-WATER - 25 GM/50 ML VIAL IVPUSH ONE ×2 (11:11→17:04)
[2020-11-05] MEDS ORDERED: MAGNESIUM OXIDE 400 MG TABLET (FP) PO ONE (11:17)
[2020-11-05] MEDS ORDERED: SODIUM PHOSPHATE - 0 MM in DEXTROSE 5%-WATER - 250 ML IVPB ONE (11:21)
[2020-11-05] MEDS ORDERED: MAGNESIUM SULF 50% (8.12 MEQ/2 ML-1 GM VIAL) IVPB ONE (11:30)
[2020-11-05] MEDS: NOREPINEPHRINE NS PREMIX 8,000 MCG/500 ML BAG IVPB SCH ×2 (11:39→18:13)
[2020-11-05 12:02] LABS: INR 1.1 (0.83-1.09); PROTHROMBIN TIME (PATIENT) 13.3 SEC (9.7-13.0)
[2020-11-05] MEDS ORDERED: CALCIUM GLUCONATE IN NACL 1 GM/50 ML BAG IVPB ONE (13:10)
[2020-11-05] MEDS ORDERED: SODIUM BICARBONATE 8.4% 50 MEQ/50 ML DISP.SYRIN IVPUSH ONE (13:11)
[2020-11-05] MEDS ORDERED: DEXTROSE 50%-WATER - 25 GM/50 ML VIAL IVPUSH PRN (17:13)
[2020-11-05] MEDS: CHLORHEXIDINE GLUCONATE 4% CLEANSER FOR DECOLONIZATION TP SCH (21:27)
[2020-11-06] MEDS ORDERED: DEXTROSE 50%-WATER - 25 GM/50 ML VIAL ONE (00:08)
[2020-11-06] MEDS: NOREPINEPHRINE NS PREMIX 8,000 MCG/500 ML BAG IVPB SCH ×2 (00:49→22:55)
[2020-11-06] MEDS ORDERED: MEROPENEM 1 GM VIAL (RESTRICTED TO ID) IVPB ONE ×3 (02:17→16:29)
[2020-11-06] MEDS ORDERED: DEXTROSE 5%-WATER 100 ML IVPB ONE ×3 (02:18→16:30)
[2020-11-06] MEDS: HYDROCORTISONE SOD SUCCINATE 100 MG/2 ML VIAL IVPB SCH ×4 (02:19→22:54)
[2020-11-06] MEDS: MEROPENEM 1 GM in DEXTROSE 5%-WATER 100 ML IVPB SCH ×3 (02:19→17:49)
[2020-11-06] MEDS: VASOPRESSIN 40 UNITS/100 ML BAG IV SCH (02:20)
[2020-11-06] MEDS: PHENYLEPHRINE NS PREMIX 50,000 MCG/500 ML BAG CVP SCH (05:35)
[2020-11-06 06:36] LABS: HEMOGLOBIN 11.9 GM/dL (11.7-16.9); MCH 29.9 pg (25.7-33.7); MCHC 33.2 g/dl (32.0-35.9); MEAN CELL VOLUME 89.9 fl (80-96); MEAN PLT VOLUME 10.2 fl (7.5-11.1); PLATELET COUNT 39 10^3/uL (134-434); RDW 15.6 % (11.9-15.9)
[2020-11-06] MEDS: INSULIN SLIDING SCALE (NOVOLOG) 1 VIAL SQ SCH ×4 (06:38→23:57)
[2020-11-06 06:50] LABS: CHLORIDE 104 mmol/L (98-107); SODIUM 134 mmol/L (136-145); WHITE BLOOD COUNT 39.2 K/mm3 (4.0-10.0)
[2020-11-06 06:58] LABS: ALBUMIN 1.1 g/dl (3.4-5.0); ANION GAP 12 MMOL/L (8-16); BLOOD UREA NITROGEN 45.6 mg/dL (7-18); CO2 18 mmol/L (21-32); GLUCOSE,RANDOM 99 mg/dL (74-106); PHOSPHOROUS 5.1 mg/dL (2.5-4.9)
[2020-11-06 07:01] LABS: BILIRUBIN,TOTAL 0.7 mg/dL (0.2-1); CREATININE 2.4 mg/dL (0.55-1.3); SGOT/AST 93 U/L (15-37); SGPT/ALT 193 U/L (13-61); TOT PROT 3.9 g/dl (6.4-8.2)
[2020-11-06 07:02] LABS: ALK PHOS 340 U/L (45-117); CALCIUM 6.2 mg/dL (8.5-10.1)
[2020-11-06] MEDS ORDERED: NOREPINEPHRINE BITARTRATE 8,000 MCG/500 ML BAG IVPB ONE (07:32)
[2020-11-06] MEDS: MUPIROCIN 2% TOPICAL OINTMENT FOR DECOLONIZATION NS SCH ×2 (09:05→23:57)
[2020-11-06] MEDS: PANTOPRAZOLE SODIUM 40 MG VIAL IVPUSH SCH (09:06)
[2020-11-06] MEDS: FLUDROCORTISONE ACETATE 0.1 MG TABLET (FP) PO SCH (09:06)
[2020-11-06 10:13] LABS: ANISOCYTOSIS 0; MACROCYTOSIS 0; PLATELET ESTIMATE DECREASED
[2020-11-06] MEDS ORDERED: DEXTROSE 50%-WATER - 25 GM/50 ML VIAL IVPUSH PRN (19:02)
[2020-11-06] MEDS: FENTANYL IVPB 500 MCG/100 ML BAG IVPB SCH (22:55)
[2020-11-06] MEDS: CHLORHEXIDINE GLUCONATE 4% CLEANSER FOR DECOLONIZATION TP SCH (23:57)
[2020-11-07] MEDS ORDERED: DEXTROSE 5%-WATER - 50 ML IVPB ONE ×3 (03:16→17:36)
[2020-11-07] MEDS ORDERED: ceFAZolin SODIUM 1 GM VIAL ONE ×3 (03:16→17:36)
[2020-11-07] MEDS: CEFAZOLIN 1 GM in DEXTROSE 5%-WATER - 50 ML IVPB SCH ×3 (03:41→17:36)
[2020-11-07] MEDS: HYDROCORTISONE SOD SUCCINATE 100 MG/2 ML VIAL IVPB SCH ×4 (06:04→21:35)
[2020-11-07] MEDS: MIDAZOLAM IN 0.9 % SOD.CHLORID 100 MG/100 ML PLAST..BAG IVPB SCH ×2 (06:04→10:28)
[2020-11-07] MEDS: PHENYLEPHRINE NS PREMIX 50,000 MCG/500 ML BAG CVP SCH (06:04)
[2020-11-07] MEDS: VASOPRESSIN 40 UNITS/100 ML BAG IV SCH (06:04)
[2020-11-07] MEDS: INSULIN SLIDING SCALE (NOVOLOG) 1 VIAL SQ SCH ×4 (06:05→23:54)
[2020-11-07 07:44] LABS: HEMATOCRIT 34.9 % (35.4-49); HEMOGLOBIN 11.6 GM/dL (11.7-16.9); MCH 29.5 pg (25.7-33.7); MCHC 33.1 g/dl (32.0-35.9); MEAN CELL VOLUME 89.2 fl (80-96); MEAN PLT VOLUME 10.2 fl (7.5-11.1); PLATELET COUNT 41 10^3/uL (134-434); RBC 3.92 M/mm3 (4.00-5.60); RDW 15.7 % (11.9-15.9)
[2020-11-07 07:50] LABS: WHITE BLOOD COUNT 40.4 K/mm3 (4.0-10.0)
[2020-11-07 07:52] LABS: INR 1.07 (0.83-1.09); PROTHROMBIN TIME (PATIENT) 12.9 SEC (9.7-13.0)
[2020-11-07 07:55] LABS: ACTIVATED PTT 27.7 SECONDS (25.2-36.5)
[2020-11-07 08:00] LABS: CHLORIDE 103 mmol/L (98-107); SODIUM 133 mmol/L (136-145)
[2020-11-07 08:04] LABS: ANION GAP 12 MMOL/L (8-16); CO2 18 mmol/L (21-32)
[2020-11-07 08:05] LABS: ALBUMIN 1.1 g/dl (3.4-5.0); BLOOD UREA NITROGEN 52.5 mg/dL (7-18); GLUCOSE,RANDOM 117 mg/dL (74-106); MAGNESIUM 1.8 mg/dL (1.8-2.4)
[2020-11-07 08:08] LABS: CREATININE 2.3 mg/dL (0.55-1.3); SGOT/AST 61 U/L (15-37); SGPT/ALT 142 U/L (13-61)
[2020-11-07 08:09] LABS: BILIRUBIN,TOTAL 0.8 mg/dL (0.2-1); TOT PROT 3.9 g/dl (6.4-8.2)
[2020-11-07 08:10] LABS: ALK PHOS 379 U/L (45-117); CALCIUM 6.1 mg/dL (8.5-10.1)
[2020-11-07 09:12] LABS: ANISOCYTOSIS 0; MACROCYTOSIS 0; PLATELET ESTIMATE DECREASED
[2020-11-07] MEDS ORDERED: MAGNESIUM 2GM/50ML STERILE WATER IVPB IVPB ONE (09:15)
[2020-11-07] MEDS: FENTANYL IVPB 500 MCG/100 ML BAG IVPB SCH (09:50)
[2020-11-07] MEDS: FLUDROCORTISONE ACETATE 0.1 MG TABLET (FP) PO SCH (10:29)
[2020-11-07] MEDS: NOREPINEPHRINE NS PREMIX 8,000 MCG/500 ML BAG IVPB SCH ×2 (10:29→10:42)
[2020-11-07] MEDS: PANTOPRAZOLE SODIUM 40 MG VIAL IVPUSH SCH (10:29)
[2020-11-07] MEDS: MUPIROCIN 2% TOPICAL OINTMENT FOR DECOLONIZATION NS SCH ×2 (10:29→23:54)
[2020-11-07] MEDS ORDERED: CALCIUM GLUCONATE 10% - 1,000 MG/10 ML VIAL IVPUSH ONE (14:00)
[2020-11-07] MEDS: CALCIUM ACETATE 667 MG CAPSULE (FP) PO SCH (17:36)
[2020-11-07] MEDS: CHLORHEXIDINE GLUCONATE 4% CLEANSER FOR DECOLONIZATION TP SCH (23:54)
[2020-11-08] MEDS ORDERED: NOREPINEPHRINE BITARTRATE 8,000 MCG/500 ML BAG IVPB ONE ×3 (01:00→17:51)
[2020-11-08] MEDS ORDERED: DEXTROSE 5%-WATER - 50 ML IVPB ONE ×3 (01:01→18:05)
[2020-11-08] MEDS ORDERED: ceFAZolin SODIUM 1 GM VIAL ONE ×3 (01:01→18:05)
[2020-11-08] MEDS: CEFAZOLIN 1 GM in DEXTROSE 5%-WATER - 50 ML IVPB SCH ×3 (02:31→18:06)
[2020-11-08] MEDS: HYDROCORTISONE SOD SUCCINATE 100 MG/2 ML VIAL IVPB SCH ×4 (02:31→21:35)
[2020-11-08] MEDS: VASOPRESSIN 40 UNITS/100 ML BAG IV SCH (03:07)
[2020-11-08 06:19] LABS: HEMATOCRIT 35.5 % (35.4-49); HEMOGLOBIN 11.7 GM/dL (11.7-16.9); MCH 29.5 pg (25.7-33.7); MCHC 32.9 g/dl (32.0-35.9); MEAN CELL VOLUME 89.5 fl (80-96); MEAN PLT VOLUME 10.2 fl (7.5-11.1); PLATELET COUNT 64 10^3/uL (134-434); RBC 3.97 M/mm3 (4.00-5.60); RDW 15.4 % (11.9-15.9)
[2020-11-08 06:38] LABS: CHLORIDE 102 mmol/L (98-107); SODIUM 132 mmol/L (136-145)
[2020-11-08 06:44] LABS: ALBUMIN 1.1 g/dl (3.4-5.0); ANION GAP 10 MMOL/L (8-16); BLOOD UREA NITROGEN 55.7 mg/dL (7-18); CO2 19 mmol/L (21-32); GLUCOSE,RANDOM 140 mg/dL (74-106); MAGNESIUM 2.3 mg/dL (1.8-2.4)
[2020-11-08 06:47] LABS: SGOT/AST 44 U/L (15-37); SGPT/ALT 84 U/L (13-61)
[2020-11-08 06:48] LABS: PHOSPHOROUS 4.6 mg/dL (2.5-4.9); TOT PROT 4.1 g/dl (6.4-8.2)
[2020-11-08 06:49] LABS: ALK PHOS 381 U/L (45-117)
[2020-11-08 06:52] LABS: CALCIUM 6.4 mg/dL (8.5-10.1)
[2020-11-08 07:09] LABS: WHITE BLOOD COUNT 42.7 K/mm3 (4.0-10.0)
[2020-11-08] MEDS: INSULIN SLIDING SCALE (NOVOLOG) 1 VIAL SQ SCH ×4 (07:26→22:26)
[2020-11-08] MEDS: PHENYLEPHRINE NS PREMIX 50,000 MCG/500 ML BAG CVP SCH ×2 (07:27→18:00)
[2020-11-08] MEDS: NOREPINEPHRINE NS PREMIX 8,000 MCG/500 ML BAG IVPB SCH ×2 (08:53→11:00)
[2020-11-08] MEDS: PANTOPRAZOLE SODIUM 40 MG VIAL IVPUSH SCH (10:32)
[2020-11-08] MEDS: CALCIUM ACETATE 667 MG CAPSULE (FP) PO SCH ×3 (10:49→17:58)
[2020-11-08] MEDS: MUPIROCIN 2% TOPICAL OINTMENT FOR DECOLONIZATION NS SCH (10:50)
[2020-11-08] MEDS: MIDAZOLAM IN 0.9 % SOD.CHLORID 100 MG/100 ML PLAST..BAG IVPB SCH ×2 (11:00→18:04)
[2020-11-08] MEDS: FLUDROCORTISONE ACETATE 0.1 MG TABLET (FP) PO SCH (11:03)
[2020-11-08 11:36] LABS: ANISOCYTOSIS 0; HELMET CELLS 0; HOWELL-JOLLY BODIES 0; MACROCYTOSIS 0; OVALOCYTE 0; PLATELET ESTIMATE DECREASED; ROULEAU 0; SICKELED CELLS 0; TARGET CELLS 0; TEAR DROP CELLS 0; TOXIC GRANULATION 0
[2020-11-08] MEDS: FENTANYL IVPB 500 MCG/100 ML BAG IVPB SCH (14:32)
[2020-11-08] MEDS ORDERED: NOREPINEPHRINE BITARTRATE 4 MG/4 ML ML IV ONE (17:51)
[2020-11-08] MEDS: CHLORHEXIDINE GLUCONATE 4% CLEANSER FOR DECOLONIZATION TP SCH (22:26)
[2020-11-09] MEDS ORDERED: ceFAZolin SODIUM 1 GM VIAL ONE ×3 (01:00→17:00)
[2020-11-09] MEDS ORDERED: DEXTROSE 5%-WATER - 50 ML IVPB ONE ×3 (01:00→17:00)
[2020-11-09] MEDS: CEFAZOLIN 1 GM in DEXTROSE 5%-WATER - 50 ML IVPB SCH ×3 (01:57→18:59)
[2020-11-09] MEDS: HYDROCORTISONE SOD SUCCINATE 100 MG/2 ML VIAL IVPB SCH ×4 (02:19→21:14)
[2020-11-09] MEDS: VASOPRESSIN 40 UNITS/100 ML BAG IV SCH ×4 (02:20→16:51)
[2020-11-09] MEDS: PHENYLEPHRINE NS PREMIX 50,000 MCG/500 ML BAG CVP SCH (05:00)
[2020-11-09] MEDS: INSULIN SLIDING SCALE (NOVOLOG) 1 VIAL SQ SCH ×4 (06:14→22:40)
[2020-11-09 06:52] LABS: CHLORIDE 98 mmol/L (98-107); SODIUM 130 mmol/L (136-145)
[2020-11-09 06:55] LABS: ALBUMIN 1.1 g/dl (3.4-5.0); ANION GAP 12 MMOL/L (8-16); BLOOD UREA NITROGEN 58.9 mg/dL (7-18); CO2 19 mmol/L (21-32); GLUCOSE,RANDOM 106 mg/dL (74-106); MAGNESIUM 2.1 mg/dL (1.8-2.4)
[2020-11-09 06:58] LABS: PHOSPHOROUS 4.1 mg/dL (2.5-4.9); SGOT/AST 31 U/L (15-37); SGPT/ALT 39 U/L (13-61)
[2020-11-09 07:00] LABS: BILIRUBIN,TOTAL 0.7 mg/dL (0.2-1); TOT PROT 4.1 g/dl (6.4-8.2)
[2020-11-09 07:01] LABS: ALK PHOS 395 U/L (45-117)
[2020-11-09 07:11] LABS: HEMATOCRIT 35.3 % (35.4-49); HEMOGLOBIN 11.7 GM/dL (11.7-16.9); MCH 29.4 pg (25.7-33.7); MCHC 33.1 g/dl (32.0-35.9); MEAN CELL VOLUME 88.7 fl (80-96); MEAN PLT VOLUME 9.6 fl (7.5-11.1); PLATELET COUNT 76 10^3/uL (134-434); RBC 3.99 M/mm3 (4.00-5.60); RDW 15.4 % (11.9-15.9)
[2020-11-09 07:13] LABS: CALCIUM 6.6 mg/dL (8.5-10.1)
[2020-11-09 07:16] LABS: WHITE BLOOD COUNT 47.9 K/mm3 (4.0-10.0)
[2020-11-09] MEDS ORDERED: KCL 10 MEQ IVPB 10 MEQ/100 ML INFUS.BAG IVPB SCH (08:15)
[2020-11-09 09:17] LABS: ANISOCYTOSIS 0; MACROCYTOSIS 0; PLATELET ESTIMATE DECREASED
[2020-11-09] MEDS: CALCIUM ACETATE 667 MG CAPSULE (FP) PO SCH ×3 (10:15→18:02)
[2020-11-09] MEDS: FLUDROCORTISONE ACETATE 0.1 MG TABLET (FP) PO SCH (10:15)
[2020-11-09] MEDS: PANTOPRAZOLE SODIUM 40 MG VIAL IVPUSH SCH (10:59)
[2020-11-09] MEDS: MIDAZOLAM IN 0.9 % SOD.CHLORID 100 MG/100 ML PLAST..BAG IVPB SCH (11:02)
[2020-11-09] MEDS: NOREPINEPHRINE NS PREMIX 8,000 MCG/500 ML BAG IVPB SCH ×2 (11:02→16:49)
[2020-11-09] MEDS: FENTANYL IVPB 500 MCG/100 ML BAG IVPB SCH ×2 (11:04→12:37)
[2020-11-09] MEDS ORDERED: FUROSEMIDE 40 MG/4 ML INJECTABLE VIAL IVPUSH ONE (11:07)
[2020-11-09] MEDS: KCL 10 MEQ IVPB 10 MEQ/100 ML INFUS.BAG IVPB SCH ×2 (16:58→18:00)
[2020-11-09] MEDS: CHLORHEXIDINE GLUCONATE 4% CLEANSER FOR DECOLONIZATION TP SCH (22:40)
[2020-11-10] MEDS ORDERED: ceFAZolin SODIUM 1 GM VIAL ONE ×3 (01:04→15:00)
[2020-11-10] MEDS ORDERED: DEXTROSE 5%-WATER - 50 ML IVPB ONE ×3 (01:04→15:01)
[2020-11-10] MEDS: CEFAZOLIN 1 GM in DEXTROSE 5%-WATER - 50 ML IVPB SCH ×3 (01:40→17:04)
[2020-11-10] MEDS: HYDROCORTISONE SOD SUCCINATE 100 MG/2 ML VIAL IVPB SCH ×4 (02:00→22:55)
[2020-11-10] MEDS: VASOPRESSIN 40 UNITS/100 ML BAG IV SCH ×2 (04:35→15:08)
[2020-11-10] MEDS: PHENYLEPHRINE NS PREMIX 50,000 MCG/500 ML BAG CVP SCH (05:00)
[2020-11-10] MEDS: INSULIN SLIDING SCALE (NOVOLOG) 1 VIAL SQ SCH ×4 (06:52→23:09)
[2020-11-10 08:00] LABS: HEMATOCRIT 33.8 % (35.4-49); HEMOGLOBIN 11.3 GM/dL (11.7-16.9); MCH 29.8 pg (25.7-33.7); MCHC 33.5 g/dl (32.0-35.9); MEAN CELL VOLUME 89.2 fl (80-96); MEAN PLT VOLUME 10.1 fl (7.5-11.1); PLATELET COUNT 93 10^3/uL (134-434); RBC 3.79 M/mm3 (4.00-5.60); RDW 15.4 % (11.9-15.9)
[2020-11-10 08:09] LABS: BLOOD UREA NITROGEN 67.9 mg/dL (7-18)
[2020-11-10 08:10] LABS: MAGNESIUM 2.1 mg/dL (1.8-2.4)
[2020-11-10 08:12] LABS: CREATININE 2.1 mg/dL (0.55-1.3)
[2020-11-10 08:13] LABS: BILIRUBIN,TOTAL 0.7 mg/dL (0.2-1); TOT PROT 3.8 g/dl (6.4-8.2)
[2020-11-10 08:50] LABS: WHITE BLOOD COUNT 44.4 K/mm3 (4.0-10.0)
[2020-11-10] MEDS: CALCIUM ACETATE 667 MG CAPSULE (FP) PO SCH ×3 (09:21→17:04)
[2020-11-10] MEDS: FLUDROCORTISONE ACETATE 0.1 MG TABLET (FP) PO SCH (09:24)
[2020-11-10] MEDS: PANTOPRAZOLE SODIUM 40 MG VIAL IVPUSH SCH (09:24)
[2020-11-10] MEDS: FENTANYL IVPB 500 MCG/100 ML BAG IVPB SCH (09:37)
[2020-11-10 09:41] LABS: ANISOCYTOSIS 1+; MACROCYTOSIS 0; PLATELET ESTIMATE DECREASED
[2020-11-10] MEDS: NOREPINEPHRINE NS PREMIX 8,000 MCG/500 ML BAG IVPB SCH ×2 (15:06→19:15)
[2020-11-10] MEDS: MIDAZOLAM IN 0.9 % SOD.CHLORID 100 MG/100 ML PLAST..BAG IVPB SCH ×2 (15:07→19:15)
[2020-11-10] MEDS: CHLORHEXIDINE GLUCONATE 4% CLEANSER FOR DECOLONIZATION TP SCH (22:55)
[2020-11-10 23:51] VITALS: BMI 27.4
[2020-11-11] MEDS ORDERED: ceFAZolin SODIUM 1 GM VIAL ONE ×2 (01:29→08:51)
[2020-11-11] MEDS ORDERED: DEXTROSE 5%-WATER - 50 ML IVPB ONE ×2 (01:30→08:51)
[2020-11-11] MEDS: CEFAZOLIN 1 GM in DEXTROSE 5%-WATER - 50 ML IVPB SCH ×2 (01:48→09:21)
[2020-11-11] MEDS: HYDROCORTISONE SOD SUCCINATE 100 MG/2 ML VIAL IVPB SCH ×3 (02:48→14:00)
[2020-11-11] MEDS: VASOPRESSIN 40 UNITS/100 ML BAG IV SCH (03:00)
[2020-11-11 06:40] LABS: HEMATOCRIT 32.3 % (35.4-49); MEAN CELL VOLUME 88.2 fl (80-96); MEAN PLT VOLUME 9.3 fl (7.5-11.1); PLATELET COUNT 92 10^3/uL (134-434); RBC 3.67 M/mm3 (4.00-5.60); RDW 15.4 % (11.9-15.9)
[2020-11-11 07:09] LABS: ALBUMIN 0.9 g/dl (3.4-5.0); BLOOD UREA NITROGEN 76.5 mg/dL (7-18); MAGNESIUM 2.2 mg/dL (1.8-2.4)
[2020-11-11] MEDS: INSULIN SLIDING SCALE (NOVOLOG) 1 VIAL SQ SCH ×2 (07:10→10:25)
[2020-11-11 07:12] LABS: CREATININE 2.4 mg/dL (0.55-1.3); PHOSPHOROUS 5.4 mg/dL (2.5-4.9)
[2020-11-11 07:13] LABS: BILIRUBIN,TOTAL 0.7 mg/dL (0.2-1); TOT PROT 3.7 g/dl (6.4-8.2)
[2020-11-11 07:14] LABS: WHITE BLOOD COUNT 42.1 K/mm3 (4.0-10.0)
[2020-11-11] MEDS: FENTANYL IVPB 500 MCG/100 ML BAG IVPB SCH ×2 (08:26→10:23)
[2020-11-11] MEDS: CALCIUM ACETATE 667 MG CAPSULE (FP) PO SCH ×2 (08:26→13:33)
[2020-11-11] MEDS: FLUDROCORTISONE ACETATE 0.1 MG TABLET (FP) PO SCH (09:21)
[2020-11-11] MEDS: PANTOPRAZOLE SODIUM 40 MG VIAL IVPUSH SCH (09:21)
[2020-11-11] MEDS: MIDAZOLAM IN 0.9 % SOD.CHLORID 100 MG/100 ML PLAST..BAG IVPB SCH (10:22)
[2020-11-11] MEDS: NOREPINEPHRINE NS PREMIX 8,000 MCG/500 ML BAG IVPB SCH (10:22)
[2020-11-11 12:39] LABS: ANISOCYTOSIS 0; HELMET CELLS 0; HOWELL-JOLLY BODIES 0; MACROCYTOSIS 0; OVALOCYTE 0; PLATELET ESTIMATE DECREASED; ROULEAU 0; SICKELED CELLS 0; TARGET CELLS 0; TEAR DROP CELLS 0; TOXIC GRANULATION 0
[2020-11-11] MEDS ORDERED: PHENYLEPHRINE NS PREMIX 50,000 MCG/500 ML BAG CVP SCH (13:45)
[2020-11-11 14:07] VITALS: BP 114/56; PULSE 60; TEMP 97.4
[2020-11-11] MEDS ORDERED: MORPHINE SULFATE/0.9% NACL/PF 100 MG/100 ML BAG IVPB SCH (14:45)
== END 2020-11-11 19:50 | disposition expired | DRG 870 ==
LOC: JER 17:06 → JERBED 22:08 → JICU 11-03 12:16
PROVIDERS: ADMIT Internal Medicine; ATTEND Family Medicine
PROC: 0CHY7BZ Insertion of Airway into Mouth and Throat, Via Natural or Artificial Opening (ICD-10-PCS; principal; 2020-11-03)
PROC: 5A1955Z Respiratory Ventilation, Greater than 96 Consecutive Hours (ICD-10-PCS; 2020-11-03)
PROC: 0DH67UZ Insertion of Feeding Device into Stomach, Via Natural or Artificial Opening (ICD-10-PCS; 2020-11-03)
DX: A41.59 Other Gram-negative sepsis (principal); R65.21 Severe sepsis with septic shock; J96.01 Acute respiratory failure with hypoxia; J96.02 Acute respiratory failure with hypercapnia; J18.9 Pneumonia, unspecified organism; N39.0 Urinary tract infection, site not specified; E87.2 Acidosis; E27.2 Addisonian crisis; R18.8 Other ascites; I50.32 Chronic diastolic (congestive) heart failure; I48.92 Unspecified atrial flutter; R64 Cachexia; N17.9 Acute kidney failure, unspecified; G71.11 Myotonic muscular dystrophy; E87.5 Hyperkalemia; I11.0 Hypertensive heart disease with heart failure; D69.6 Thrombocytopenia, unspecified; D72.829 Elevated white blood cell count, unspecified; R94.5 Abnormal results of liver function studies; N40.0 Benign prostatic hyperplasia without lower urinary tract symptoms; F41.9 Anxiety disorder, unspecified; E87.6 Hypokalemia; Z95.0 Presence of cardiac pacemaker; Z68.27 Body mass index [BMI] 27.0-27.9, adult
CPT/HCPCS: 36415; 71045-TC-FY; 76700-TC; 80053; 81003; 82550; 82553; 82803; 82962; 83036; 83605; 83690; 83735; 84100; 84132; 84484; 85025; 85379; 85384; 85610; 85730; 87040; 87070; 87086; 87186; 87205; 87804; 87899; 93005; 93010; 93306-TC; 94002; 99285-25; C9803; G0480; J0131; J1644; J3490; U0003; U0005